=== PATIENT | female | born 1950 | race Hispanic/Latino ===

== ENCOUNTER 2016-06-08 18:05 | Inpatient (IN) | payer MEDICARE, OTHER ==
[2016-06-08 18:07] VITALS: BMI 32.8
--- NOTE | 2016-06-08 18:24 | ED PDOC ---
Arrival/HPI <Kan Ferguson - Last Filed: 06/08/16 18:34> - General Historian: Patient <Janice Salazar - Last Filed: 06/09/16 01:23> <Clayton Padilla - Last Filed: 06/09/16 03:59> - General Chief Complaint: Anxiety Time Seen by Provider: 06/08/16 18:10 - History of Present Illness Narrative History of Present Illness (Text): 06/08/16 18:17 66yo female with PMHx of anxiety, Depression who present with complaint of depression, anxiety, insomnia, and nightmares. States she has not been compliant with her psych medications. States she was referred to a psychiatrist by her PMD, not never went. Admits to auditory hallucination. Denies SI/HI, somatic complaint, any other complaint. (Janice Salazar) Past Medical History - Provider Review Nursing Documentation Reviewed: Yes - Past History Past History: No Previous - Infectious Disease Hx of Infectious Diseases: None - Reproductive Menopause: Yes - Cardiac Hx Cardiac Disorders: No - Pulmonary Hx Respiratory Disorders: No Hx Tuberculosis: No - Neurological Hx Neurological Disorder: No - HEENT Hx HEENT Disorder: No - Renal Hx Renal Disorder: No - Endocrine/Metabolic Hx Endocrine Disorders: No - Hematological/Oncological Hx Blood Disorders: No Hx Blood Transfusions: No Hx Blood Transfusion Reaction: No - Integumentary Hx Dermatological Disorder: No - Musculoskeletal/Rheumatological Hx Arthritis: Yes Hx Back Pain: Yes - Gastrointestinal Hx Gastrointestinal Disorders: No - Genitourinary/Gynecological Hx Genitourinary Disorders: No Hx Sexually Transmitted Diseases: No - Psychiatric Hx Anxiety: Yes Hx Substance Use: No - Past Surgical History Past Surgical History: No Previous - Anesthesia Hx Anesthesia: Yes Hx Anesthesia Reactions: No Hx Malignant Hyperthermia: No - Suicidal Assessment Feels Threatened In Home Enviroment: No <Janice Salazar - Last Filed: 06/09/16 01:23> Family/Social History - Physician Review Nursing Documentation Reviewed: Yes Family/Social History: Unknown Family HX Smoking Status: Never Smoked Hx Alcohol Use: No Hx Substance Use: No <Janice Salazar A - Last Filed: 06/09/16 01:23> Allergies/Home Meds <Kan Ferguson - Last Filed: 06/08/16 18:34> <DirJanice modi A - Last Filed: 06/09/16 01:23> <Clayton Padilla - Last Filed: 06/09/16 03:59> Allergies/Adverse Reactions: Allergies ciprofloxacin Allergy (Verified 01/23/16 10:44) RASH Home Medications: Home Meds Medication Instructions Recorded Confirmed ALPRAZolam [Xanax] 1 mg PO TID 06/08/16 06/08/16 Oxycodone HCl/Acetaminophen 1 mg PO TID 06/08/16 06/08/16 [Percocet 10-325 mg Tablet] PARoxetine [Paxil] 10 mg PO HS 06/08/16 06/08/16 Review of Systems - Physician Review All systems were reviewed & negative as marked: Yes - Review of Systems Constitutional: Normal Eyes: Normal ENT: Normal Respiratory: Normal Cardiovascular: Normal Gastrointestinal: Normal Genitourinary Female: Normal Musculoskeletal: Normal Skin: Normal Neurological: Normal Endocrine: Normal Hemo/Lymphatic: Normal Psychiatric: Anxiety, Depression. absent: Suicidal Ideation <Diru,Happiness A - Last Filed: 06/09/16 01:23> Physical Exam Vital Signs Reviewed: Yes Temperature: Afebrile Blood Pressure: Normal Pulse: Regular Respiratory Rate: Normal Appearance: Positive for: Well-Appearing, Non-Toxic, Comfortable Pain Distress: None Mental Status: Positive for: Alert and Oriented X 3 - Systems Exam Head: Present: Atraumatic, Normocephalic Pupils: Present: PERRL Extroacular Muscles: Present: EOMI Conjunctiva: Present: Normal Mouth: Present: Moist Mucous Membranes Neck: Present: Normal Range of Motion Respiratory/Chest: Present: Clear to Auscultation, Good Air Exchange. No: Respiratory Distress, Accessory Muscle Use Cardiovascular: Present: Regular Rate and Rhythm, Normal S1, S2. No: Murmurs Abdomen: Present: Normal Bowel Sounds. No: Tenderness, Distention, Peritoneal Signs Back: Present: Normal Inspection Upper Extremity: Present: Normal Inspection. No: Cyanosis, Edema Lower Extremity: Present: Normal Inspection. No: Edema Neurological: Present: GCS=15, CN II-XII Intact, Speech Normal Skin: Present: Warm, Dry, Normal Color. No: Rashes Psychiatric: Present: Alert, Oriented x 3, Normal Insight, Normal Concentration , Normal Affect, Anxious <Diru,Happiness A - Last Filed: 06/09/16 01:23> Medical Decision Making <KelseaalexandrCharliy - Last Filed: 06/08/16 18:34> <Janice Salazar - Last Filed: 06/09/16 01:23> - RAD Interpretation Financial Cost Analyst: ED Physician <Clayton Padilla - Last Filed: 06/09/16 03:59> ED Course and Treatment: 06/08/16 18:34 I was available for consultation during PA evaluation. The chart was reviewed by me, and I agree with disposition. The documented history was done by the physician customs inspector. The documented physical exam was done by the physician customs inspector. The documented procedures were done by the physician customs inspector. ( Kan Ferguson) 06/09/16 01:23 PT presented to ED for stated history. She became loud and anxious in ED and was medically sedated for both her safety and the ED staffs safety. she was laying down comfortably in ED. Was seen by PES screener Joycelyn, she DC with Dr. Arguelles and he requested that SARAH screen patient in ED. PT refused to sign in voluntarily. Patient is pending [facility] screen. Case will be endorse to Dr. Padilla to f/u and dispo accordingly. (rian Janice Mohan) 06/09/16 02:35 Chest X-ray shows no active disease. 06/09/16 03:33 Spoke with PES screener Natalie, who re-evaluated pt and discussed case with Dr. Mcintosh. Pt will be admitted to Behavioral Health for depression, audio hallucinations, and schizophrenia under Dr. Yung's service. (Clayton Padilla) - Lab Interpretations Lab Results: 06/08/16 18:16 06/08/16 18:16 Lab Results 06/08/16 20:00: Urine Opiates Screen Positive H, Urine Methadone Screen Negative , Ur Barbiturates Screen Negative, Ur Phencyclidine Scrn Negative, Ur Amphetamines Screen Negative, U Benzodiazepines Scrn Negative, U Oth Cocaine Metabols Negative, U Cannabinoids Screen Negative 06/08/16 20:00: Urine Color Dark yellow, Urine Appearance Sl cloudy, Urine pH 6.0, Ur Specific [place] >= 1.030, Urine Protein 100 H, Urine Glucose (UA) Negative, Urine Ketones 15 H, Urine Blood Negative, Urine Nitrate Negative, Urine Bilirubin Moderate H, Urine Urobilinogen 1.0 H, Ur Leukocyte Esterase Trace H, Urine RBC 0 - 2, Urine WBC 5 - 10, Ur Epithelial Cells 1 - 3, Urine Bacteria Mod 06/08/16 18:16: Alcohol, Quantitative < 10 06/08/16 18:16: Salicylates < 1 L, Acetaminophen < 10.0 L 06/08/16 18:16: Sodium 137, Potassium 3.1 L, Chloride 97 L, Carbon Dioxide 24, Anion Gap 19, BUN 13, Creatinine 0.7, Est GFR ( Amer) > 60, Est GFR (Non- Af Amer) > 60, Random Glucose 125 H, Calcium 9.3, Total Bilirubin 1.1, AST 19, ALT 29, Alkaline Phosphatase 94, Total Protein 8.1, Albumin 4.6, Globulin 3.6, Albumin/Globulin Ratio 1.3 06/08/16 18:16: WBC 7.7, RBC 4.32, Hgb 12.4, Hct 35.7 L, MCV 82.6, MCH 28.7, MCHC 34.7, RDW 13.7, Plt Count 358, MPV 10.8, Gran % 76.0 H, Lymph % (Auto) 16.7 L, [place] % (Auto) 7.1 H, Eos % (Auto) 0.1 L, Baso % (Auto) 0.1, Gran # 5.85 , Lymph # 1.3, [place] # 0.6, Eos # 0.0, Baso # 0.01 - RAD Interpretation Radiology Orders: 06/09/16 01:17 CHEST PORTABLE [RAD] Stat - Medication Orders Current Medication Orders: Discontinued Medications Ziprasidone (Geodon Inj) 20 mg IM STAT STA PRN Reason: Protocol Stop: 06/08/16 21:29 Last Admin: 06/08/16 21:46 Dose: 20 mg - PA / BMX RIDER / Resident Statement / has reviewed & agrees with the documentation as recorded. / has examined the patient and agrees with the treatment plan. <Clayton Padilla - Last Filed: 06/09/16 03:59> Disposition/Present on Arrival <Kan Ferguson - Last Filed: 06/08/16 18:34> - Present on Arrival History of DVT/PE: No History of Uncontrolled Diabetes: No Urinary Catheter: No History of Decub. Ulcer: No History Surgical Site Infection Following: None <Janice Salazar - Last Filed: 06/09/16 01:23> - Present on Arrival Any Indicators Present on Arrival: No History of DVT/PE: No History of Uncontrolled Diabetes: No Urinary Catheter: No History of Decub. Ulcer: No History Surgical Site Infection Following: None - Disposition Have Diagnosis and Disposition been Completed?: Yes Disposition Time: 03:38 Patient Plan: Admission <Clayton Padilla - Last Filed: 06/09/16 03:59> - Disposition Diagnosis: Schizophrenia Disposition: HOSPITALIZED Patient Problems: Current Active Problems Problem Status Onset Schizophrenia Acute Condition: STABLE Referrals: Andra Garcia MD [Primary Care Provider] - Follow up with primary
[2016-06-08 18:36] LABS: ADD MANUAL DIFF? NO
[2016-06-08 18:40] LABS: BASO # 0.01 K/mm3 (0.0-2.0); BASO % 0.1 % (0.0-3.0); EOS % 0.1 % (1.5-5.0); GRAN # 5.85 (1.4-6.5); HEMATOCRIT 35.7 % (36.0-48.0); LYMPH # 1.3 (1.2-3.4); LYMPH % 16.7 % (22.0-35.0); MEAN CELL VOLUME 82.6 fL (80.0-105.0); MEAN CORPUSCULAR HEMOGLOBIN 28.7 pg (25.0-35.0); MEAN CORPUSCULAR HGB CONC 34.7 g/dl (31.0-37.0); MEAN PLATELET VOLUME 10.8 fl (7.0-11.0); MONO # 0.6 (0.1-0.6); MONO % 7.1 % (1.0-6.0); PLATELET COUNT 358 10^3/uL (120.0-450.0); RED CELL DISTRIBUTION WIDTH 13.7 % (11.5-14.5); WHITE BLOOD COUNT 7.7 10^3/ul (4.5-11.0)
[2016-06-08 18:53] LABS: ALB/GLOB RATIO 1.3 (1.1-1.8); ALKALINE PHOSPHATASE 94 U/L (38-133); ALT/SGPT 29 U/L (7-56); AST/SGOT 19 U/L (15-39); BILIRUBIN,TOTAL 1.1 mg/dL (0.2-1.3); BLOOD UREA NITROGEN 13 mg/dL (7-21); CALCIUM 9.3 mg/dL (8.4-10.5); CARBON DIOXIDE 24 mmol/L (21-33); CHLORIDE 97 mmol/L (98-107); GFR AFRICAN-AMERICAN > 60; GLUCOSE,RANDOM 125 mg/dL (70-110); POTASSIUM 3.1 mmol/L (3.6-5.0); SODIUM 137 mmol/L (132-148); TOTAL PROTEIN 8.1 g/dL (5.8-8.3)
[2016-06-08 20:40] LABS: URINE BILIRUBIN MODERATE (NEGATIVE); URINE BLOOD NEGATIVE (NEGATIVE); URINE GLUCOSE (UA) NEGATIVE (NEGATIVE); URINE KETONE 15 mg/dL (NEGATIVE); URINE LEUKOCYTE ESTERASE TRACE Leu/uL (NEGATIVE); URINE PROTEIN 100 mg/dL (<30 mg/dL)
[2016-06-08 20:41] LABS: URINE APPEARANCE SL CLOUDY (CLEAR); URINE COLOR DARK YELLOW (YELLOW)
[2016-06-08 20:49] LABS: URINE RBC 0 - 2 /hpf (0-2)
[2016-06-08 20:50] LABS: URINE BACTERIA MOD (NEG)
[2016-06-09 05:01] VITALS: O2SAT 97
[2016-06-09] MEDS ORDERED: Alum-Mag Hydrox-Simethicone Susp (30 mL) PO PRN (05:38)
[2016-06-09] MEDS ORDERED: Magnesium Hydroxide Susp 30 ml UD PO PRN (05:38)
[2016-06-09 09:30] LABS: CHOLESTEROL 137 mg/dL (130-200); GLUCOSE,FASTING 92 mg/dL (65-110)
--- NOTE | 2016-06-09 09:43 | PCM.PSYCH ---
Initial Psychiatric Evaluation - Initial Psychiatric Evaluation Type of Admission: Voluntary Legal Status: Capacity History of Present Illness and Precipitating Events: Patient is a 65yo female with h/o depression and anxiety, one prior admission to [facility] in 01/[place], no previous psychiatric admissions who presented to the ER with depression, anxiety, insomnia, and nightmares. Patient refused to sign in voluntarily because hallucinations instructed her not to. Screening was requested and patient eventually decided to sign in voluntarily for help. Of note: patient became loud and anxious in the ER at 1:23 AM and required medical sedation for her safety and staff safety. Patient remained quite sedated at the time of my interview this morning and could not participate in a productive interview despite multiple attempts. She was able to inform this provider that she was not currently in any pain or discomfort. She remains depressed however denied having any suicidal thoughts or thoughts to harm others. PSYCHIATRIC HISTORY Most recent admission to [facility] 01/23/16-02/01/16, discharged on Paxil 30 mg HS and Seroquel 300 mg HS. Patient was admitted at that time for confusion, hallucinations and bizarre behavior (she was wandering on the streets without shoes). Apartment was filthy with feces on the floor. Current Medications: Active Medications Generic Name Dose Route Start Last Admin Trade Name Freq PRN Reason Stop Dose Admin Acetaminophen 650 mg 06/09/16 05:38 Tylenol 325mg Tab PO Q4H PRN Pain, Mild (1-3) Al Hydrox/Mg Hydrox/Simethicone 30 ml 06/09/16 05:38 Maalox Plus 30 Ml PO DAILY PRN Upset Stomach Magnesium Hydroxide 30 ml 06/09/16 05:38 Milk Of Magnesia PO DAILY PRN Constipation Past Psychiatric History - Past Psychiatric History Pertinent Medical Hx (Current Medical&Sleep Prob, Allergies): Allergies Allergy/AdvReac Type Severity Reaction Status Date / Time ciprofloxacin Allergy RASH Verified 06/09/16 05:29 Quetiapine Fumarate [Seroquel] 300 mg PO HS #14 tablet 02/01/16 ALPRAZolam [Xanax] 1 mg PO TID 06/08/16 Oxycodone HCl/Acetaminophen [Percocet 10-325 mg Tablet] 1 mg PO TID 06/08/16 PARoxetine [Paxil] 10 mg PO HS 06/08/16 DSM 5 DX - DSM 5 DSM 5 Diagnosis: r/o bipolar disorder r/o schizoaffective disorder r/o delusional disorder - Recommended/Plan of Treatment Treatment Recommendations and Plan of Treatment: * group, milieu and supportive tx * Initiate Paxil 10 mg HS for depression and anxiety * Initiate Seroquel 50 mg HS for hallucinations and disorganization * Awaiting medical f/u * Vitals reviewed and noted below: Selected Entries 06/09/16 06/09/16 06/09/16 03:10 04:10 06:19 Temperature 97.8 F Pulse Rate 78 70 78 Respiratory 16 16 18 Rate Blood Pressure 109/54 L 98/50 L 134/73 FLOOR LABS NOTED BELOW 06/09/16 09:10 Fasting Glucose 92 Triglycerides 70 Cholesterol 137 LDL Cholesterol Direct 58 HDL Cholesterol 51 EMERGENCY ROOM LABS AND STUDIES 06/08/16 20:00: Urine Opiates Screen Positive H, Urine Methadone Screen Negative , Ur Barbiturates Screen Negative, Ur Phencyclidine Scrn Negative, Ur Amphetamines Screen Negative, U Benzodiazepines Scrn Negative, U Oth Cocaine Metabols Negative, U Cannabinoids Screen Negative 06/08/16 20:00: Urine Color Dark yellow, Urine Appearance Sl cloudy, Urine pH 6.0, Ur Specific [place] >= 1.030, Urine Protein 100 H, Urine Glucose (UA) Negative, Urine Ketones 15 H, Urine Blood Negative, Urine Nitrate Negative, Urine Bilirubin Moderate H, Urine Urobilinogen 1.0 H, Ur Leukocyte Esterase Trace H, Urine RBC 0 - 2, Urine WBC 5 - 10, Ur Epithelial Cells 1 - 3, Urine Bacteria Mod 06/08/16 18:16: Alcohol, Quantitative < 10 06/08/16 18:16: Salicylates < 1 L, Acetaminophen < 10.0 L 06/08/16 18:16: Sodium 137, Potassium 3.1 L, Chloride 97 L, Carbon Dioxide 24, Anion Gap 19, BUN 13, Creatinine 0.7, Est GFR ( Amer) > 60, Est GFR (Non- Af Amer) > 60, Random Glucose 125 H, Calcium 9.3, Total Bilirubin 1.1, AST 19, ALT 29, Alkaline Phosphatase 94, Total Protein 8.1, Albumin 4.6, Globulin 3.6, Albumin/Globulin Ratio 1.3 06/08/16 18:16: WBC 7.7, RBC 4.32, Hgb 12.4, Hct 35.7 L, MCV 82.6, MCH 28.7, MCHC 34.7, RDW 13.7, Plt Count 358, MPV 10.8, Gran % 76.0 H, Lymph % (Auto) 16.7 L, [place] % (Auto) 7.1 H, Eos % (Auto) 0.1 L, Baso % (Auto) 0.1, Gran # 5.85 , Lymph # 1.3, [place] # 0.6, Eos # 0.0, Baso # 0.01 06/09/16 02:35 Chest X-ray shows no active disease.
--- NOTE | 2016-06-09 13:38 | CARD ---
APPROVED REPORT EKG Measurement Heart [id number] <Conclusion> Normal sinus rhythm Minimal voltage criteria for LVH, may be normal variant Possible Inferior infarct, age undetermined VS septal q wave corelate clinically Abnormal ECG
--- NOTE | 2016-06-09 16:48 | RAD ---
HISTORY: admission COMPARISON: 01/23/2016 FINDINGS: LUNGS: No active pulmonary disease. PLEURA: No significant pleural effusion identified, no pneumothorax apparent. CARDIOVASCULAR: Borderline cardiomegaly. OSSEOUS STRUCTURES: No significant abnormalities. VISUALIZED UPPER ABDOMEN: Normal. OTHER FINDINGS: None. IMPRESSION: No active disease.
[2016-06-09] MEDS: Oxycodone/Acetaminophen 5/325 mg Tab PO PRN (20:17)
[2016-06-10] MEDS: Oxycodone/Acetaminophen 5/325 mg Tab PO PRN ×2 (07:47→21:06)
--- NOTE | 2016-06-10 08:25 | PCM.PYCHPN ---
Psychiatric Progress Note - Psychiatric Progress Note Patient seen today, length of contact: 25 min Patient Chief Complaint: "better" Problems Identified/Issues Discussed: I reviewed recent notes and met with patient at bedside. Patient remains superficially oriented and cooperative with questioning. Grooming is a little unkempt. She denies any new concerns and reports that her mood is depressed and anxious but improving since admissions. Affect is constricted and internally preoccupied however she denies having any hallucinations. Patient did endorse having hallucinations to staff yesterday. Patient denies overt paranoia on the unit and active delusions were not elicited. Patient has been tolerating her medications at this time and denies any new discomfort or pain. Sleep was restless. She is agreeable to increase in Paxil and Seroquel. There were no behavioral issues overnight Diagnostic Results: r/o bipolar disorder r/o schizoaffective disorder r/o delusional disorder Medication Change: Yes (Increased Paxil and seroquel) Medical Record Reviewed: Yes (Notes, reports, labs, vitals) Mental Status Examination - Cognitive Function Orientation: Person, Place, Situation Memory: Impaired Attention: WNL Concentration: Poor Association: Loose - Mood Mood: Depressed, Anxious - Affect Affect: Constricted, Flat - Speech Speech: Appropriate - Formal Thought Process Formal Thought Process: Hallucinations (endorsed hallucinations to staff over the weekend, denied to this provider.) - Homicidal Ideation Homicidal Ideation: No Goal/Treatment Plan - Goal/Treatment Plan Need for Continued Stay: Remain at risks for inpatient hospitalization Progress Toward Problem(s) and Goals/Treatment Plan: * group, milieu and supportive tx * Increase Paxil to 20 mg HS for depression and anxiety, titrate as necessary * Increase Seroquel to 100 mg HS for hallucinations and disorganization, titrate as necessary * Awaiting medical f/u * Vitals reviewed and noted below: Selected Entries 06/10/16 07:27 Temperature 98.1 F Pulse Rate 60 Respiratory 17 Rate Blood Pressure 104/48 L FLOOR LABS NOTED BELOW 06/09/16 09:10 Fasting Glucose 92 Triglycerides 70 Cholesterol 137 LDL Cholesterol Direct 58 HDL Cholesterol 51 EMERGENCY ROOM LABS AND STUDIES 06/08/16 20:00: Urine Opiates Screen Positive H, Urine Methadone Screen Negative , Ur Barbiturates Screen Negative, Ur Phencyclidine Scrn Negative, Ur Amphetamines Screen Negative, U Benzodiazepines Scrn Negative, U Oth Cocaine Metabols Negative, U Cannabinoids Screen Negative 06/08/16 20:00: Urine Color Dark yellow, Urine Appearance Sl cloudy, Urine pH 6.0, Ur Specific [place] >= 1.030, Urine Protein 100 H, Urine Glucose (UA) Negative, Urine Ketones 15 H, Urine Blood Negative, Urine Nitrate Negative, Urine Bilirubin Moderate H, Urine Urobilinogen 1.0 H, Ur Leukocyte Esterase Trace H, Urine RBC 0 - 2, Urine WBC 5 - 10, Ur Epithelial Cells 1 - 3, Urine Bacteria Mod 06/08/16 18:16: Alcohol, Quantitative < 10 06/08/16 18:16: Salicylates < 1 L, Acetaminophen < 10.0 L 06/08/16 18:16: Sodium 137, Potassium 3.1 L, Chloride 97 L, Carbon Dioxide 24, Anion Gap 19, BUN 13, Creatinine 0.7, Est GFR ( Amer) > 60, Est GFR (Non- Af Amer) > 60, Random Glucose 125 H, Calcium 9.3, Total Bilirubin 1.1, AST 19, ALT 29, Alkaline Phosphatase 94, Total Protein 8.1, Albumin 4.6, Globulin 3.6, Albumin/Globulin Ratio 1.3 06/08/16 18:16: WBC 7.7, RBC 4.32, Hgb 12.4, Hct 35.7 L, MCV 82.6, MCH 28.7, MCHC 34.7, RDW 13.7, Plt Count 358, MPV 10.8, Gran % 76.0 H, Lymph % (Auto) 16.7 L, [place] % (Auto) 7.1 H, Eos % (Auto) 0.1 L, Baso % (Auto) 0.1, Gran # 5.85 , Lymph # 1.3, [place] # 0.6, Eos # 0.0, Baso # 0.01 06/09/16 02:35 Chest X-ray shows no active disease.
[2016-06-11 07:54] LABS: HEMATOCRIT 34.6 % (36.0-48.0); MEAN CELL VOLUME 86.3 fL (80.0-105.0); MEAN CORPUSCULAR HEMOGLOBIN 27.4 pg (25.0-35.0); MEAN CORPUSCULAR HGB CONC 31.8 g/dl (31.0-37.0); MEAN PLATELET VOLUME 10.9 fl (7.0-11.0); RED CELL DISTRIBUTION WIDTH 14.3 % (11.5-14.5); WHITE BLOOD COUNT 6.1 10^3/ul (4.5-11.0)
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
[2016-06-11 08:07] LABS: BLOOD UREA NITROGEN 26 mg/dL (7-21); CALCIUM 9.1 mg/dL (8.4-10.5); CARBON DIOXIDE 30 mmol/L (21-33); CHLORIDE 105 mmol/L (98-107); CHOLESTEROL 133 mg/dL (130-200); GFR AFRICAN-AMERICAN > 60; GLUCOSE,RANDOM 88 mg/dL (70-110); POTASSIUM 4.7 mmol/L (3.6-5.0); SODIUM 143 mmol/L (132-148)
--- NOTE | 2016-06-11 08:30 | CON ---
DATE: 06/10/2016 The patient is a 66-year-old female. CHIEF COMPLAINT: Depression, anxiety. HISTORY OF PRESENT ILLNESS: The patient is a 66-year-old lady, well known to me from last admission, came with anxiety, depression, Complaining of depression, anxiety, insomnia and nightmares. She states that she is compliance with her psych medications. She was referred to the psychiatrist by her PMD, never done. Admits auditory hallucinations. Denies SI and HI complaints. Admitted in psych department complaining about both knees. Percocet is given for the knees. PAST MEDICAL HISTORY: Menopause, arthritis, back pain, anxiety. FAMILY HISTORY: Father and mother noncontributory. HABITS: No smoking, no drugs, no ethanol. ALLERGIES: THE PATIENT IS ALLERGIC WITH CIPROFLOXACIN GIVES RASH. HOME MEDICATIONS: Xanax, oxycodone, Paxil. REVIEW OF SYSTEMS: The patient seen and examined on the bedside in ER, looks comfortable. No nausea, vomiting, diarrhea. No hematuria, no hematochezia. No swelling of the legs. No chest pain, no palpitation. PHYSICAL EXAMINATION: HEART: S1, S2 positive. ABDOMEN: Soft. Bowel sounds positive. No organomegaly. EXTREMITIES: No edema, no cyanosis. NEUROLOGIC: The patient is awake, alert, moving all 4 extremities. No focal deficit. LABORATORIES: White blood cells 7.7, hemoglobin 12.7, hematocrit 35.7, platelets 358. Sodium noted , potassium 3.1, BUN noted , creatinine 0.7, glucose of 125. ASSESSMENT AND PLAN: A 66-year-old female with thrombocytopenia, hyperglycemia . Gastrointestinal and deep venous thrombosis prophylaxis. Psych is on the case. Repeat labs. Will follow up. Sherin Morton MD cc: [id number] TT: 06/10/2016 09:31:59 Confirmation # [id number] Dictation # [id number] [id number]
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
[2016-06-11] MEDS: Oxycodone/Acetaminophen 5/325 mg Tab PO PRN (19:13)
--- NOTE | 2016-06-12 07:25 | PN ---
DATE: 06/11/2016 SUBJECTIVE: The patient is a 66-year-old female with multiple medical problems. The patient was seen and examined on the bedside, sleepy, arousable, moving all 4 extremities. No focal deficit. No fever, no chills, no nausea, vomiting, or diarrhea. No headache, no dizziness. PHYSICAL EXAMINATION: VITAL SIGNS: Temperature 97.8, pulse 61, blood pressure 140/76, respiratory rate 20. HEENT: Head normocephalic, atraumatic. Eyes: PERRLA. Extraocular movements intact. Conjunctivae pink. Eyelids unremarkable. Nose patent. Mucous membranes moist. NECK: Supple. No carotid bruit, JVD or thyromegaly. CHEST: Bilaterally symmetrical. HEART: S1, S2 positive. LUNGS: Clear to auscultation. ABDOMEN: Soft. Bowel sounds positive. No organomegaly. EXTREMITIES: No edema, no cyanosis. NEUROLOGIC: The patient is sleepy, moving all 4 extremities. No focal deficit. MEDICATIONS: Maalox, milk of magnesia, Percocet, Seroquel, Tylenol. LABORATORY DATA: White blood cells 6.1, hemoglobin 11.1, hematocrit 34.6, platelets 263. Sodium 142, potassium 4.7, BUN 26. ASSESSMENT AND PLAN: The patient is a 66-year-old female with history of hypokalemia, improved, increased BUN, hyperglycemia, rule out diabetes mellitus , anemia, proteinuria, acute renal failure, urinary tract infection. Urine opiates positive. Continue present treatment. Gastrointestinal and deep venous thrombosis prophylaxis. History of degenerative joint disease, seen by Dr. Leona Yung, psychiatrist, needs some change in the medicine. Advised to quit smoking. Needs some physical therapy. We will try to do as outpatient. We will follow up. Sherin Morton MD cc: [id number] TT: 06/12/2016 07:24:45 Confirmation # [id number] Dictation # [id number] marcin [email or web address]
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
[2016-06-12] MEDS: Oxycodone/Acetaminophen 5/325 mg Tab PO PRN (18:07)
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
--- NOTE | 2016-06-14 06:57 | PN ---
DATE: 06/13/2016 SUBJECTIVE: The patient is seen and examined on the bedside, looks comfortable. No nausea, vomiting, or diarrhea. No fever, no chills. No headache, no dizziness. Complaining about joint pains, body aches, fatigue, tired. No nausea or vomiting. No dyspnea. PHYSICAL EXAMINATION: VITAL SIGNS: Temperature 98.5, pulse 59, blood pressure 157/82, respiratory rate 18. HEENT: Head normocephalic, atraumatic. Eyes: PERRLA. Extraocular muscles intact. Conjunctivae clear. Nose patent. Mucous membranes moist. NECK: Supple. No carotid bruits. No JVD or thyromegaly. CHEST: Bilaterally symmetrical. HEART: S1, S2 positive. LUNGS: Clear to auscultation. ABDOMEN: Soft. Bowel sounds present. No organomegaly. EXTREMITIES: No edema, no cyanosis. NEUROLOGIC: The patient is awake, alert, moving all 4 extremities. No focal deficit. MEDICATIONS: Maalox, milk of magnesia, Paxil, Seroquel, Senokot, Tylenol. LABORATORY DATA: White blood cells 6.1, hemoglobin 11.0, hematocrit 34.6, and platelets 263. ASSESSMENT AND PLAN: The patient is a 66-year-old lady with anemia, hyperglycemia, opioid screen positive, proteinuria, ketonuria, urinary tract infection, seen by Dr. Leona Yung and according to the psychiatrist, the patient said that her roommte was whispering about me. She talks bad staff about me. I do not like her. I stayed in seclusion room. I was not feeling safe." History of degenerative joint disease, depression, anxiety, has previous psychiatric admission in 2016, history of chronic back pain, knee pain , brought to [facility] by EMS due to bizarre behavior. The patient was shouting in her apartment, was confused, disorganized, claimed that she was not able to sleep and the patient was complaining that she was hearing voices of devil, was scared. That is why she was screaming in her apartment. The patient noncompliant with medication. Education done. Now patient is denying hearing voices, seeing things, but the patient presented to be psychotic, disorganized and paranoid. Rule out schizoaffective disorder, bipolar type, rule out medication-induced psychosis, rule out delirium. Psychiatrist increased the Seroquel. Gastrointestinal and deep venous thrombosis prophylaxis. Repeat labs. Continue milk of magnesia, Paxil, Seroquel, Sonata, Tylenol, p.r.n. We will follow up. Sherin Morton MD cc: [id number] TT: 06/14/2016 06:56:50 Confirmation # [id number] Dictation # [id number] tn MTDD
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
--- NOTE | 2016-06-15 07:37 | PN ---
DATE: 06/14/2016 The patient is a 66-year-old female. The patient is seen and examined on the bedside, looks comfortable. No nausea, vomiting, diarrhea. No hematuria, no hematochezia. No swelling of the legs. No chest pain, no palpitation. Complaining about knee pains. It looks like suspicious for djd . Otherwise, no fever, no chills. PHYSICAL EXAMINATION: VITAL SIGNS: Temperature 97.9, pulse 80 , blood pressure 124/70, respiratory rate 18. HEENT: Head normocephalic, atraumatic. Eyes: PERRLA. Extraocular muscles intact. Conjunctivae pink. Eyelids unremarkable. Nose patent. Mucous membranes moist. NECK: Supple. No carotid bruit, no JVD, no thyromegaly. CHEST: Bilaterally symmetrical. HEART: S1, S2 positive. LUNGS: Clear to auscultation. ABDOMEN: Soft. Bowel sounds positive. No organomegaly. EXTREMITIES: No edema, no cyanosis. NEUROLOGIC: The patient is awake, alert, moving all 4 extremities. No focal deficit. MEDICATIONS: Maalox, milk of magnesia, Paxil, Seroquel, Sonata, Tylenol. LABORATORIES: We do not have recent labs today, but I reviewed old labs. ASSESSMENT AND PLAN: The patient is a 66-year-old lady with anemia, history of hypokalemia, improved, proteinuria, ketonuria, opiates positive in toxicology, history of degenerative joint disease, arthritis, obesity. Dr. Delgadillo is on the case for psych problems. gastroesophageal reflux disease, dyspepsia. Gastrointestinal and deep venous thrombosis prophylaxis. Repeat labs. Will follow up. Sherin Morton MD cc: [id number] TT: 06/15/2016 07:37:16 Confirmation # [id number] Dictation # [id number] en MTDD
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
[2016-06-16 06:40] VITALS: TEMP 97.9
--- NOTE | 2016-06-16 07:15 | PN ---
DATE: 06/15/2016 SUBJECTIVE: The patient is a 66-year-old female. The patient was seen and examined at the bedside on 06/15/2016. Just complaining about pain in the knees. No nausea, vomiting, or diarrhea. No hematuria or hematochezia. No headache, no dizziness. No fever, no chills. No swelling of the leg. PHYSICAL EXAMINATION: VITAL SIGNS: Temperature 97.8, pulse 72, blood pressure 111/58, respiratory rate 19. HEENT: Head: Normocephalic, atraumatic. Eyes: PERRLA. Extraocular movements intact. Conjunctivae are clear. Nose patent. Mucous membranes moist. NECK: Supple. No carotid bruit. No JVD or thyromegaly. CHEST: Bilaterally symmetrical. HEART: S1, S2 positive. LUNGS: Clear to auscultation. ABDOMEN: Soft. Bowel sounds positive. No organomegaly. EXTREMITIES: No edema, no cyanosis. NEUROLOGIC: The patient is awake, alert, moving all extremities. No focal deficit. MEDICATIONS: Maalox, milk of magnesia, Paxil, Seroquel, Sonata, Tylenol. LABORATORY DATA: White blood cells 6.1, hemoglobin 11.0, hematocrit 34.6, and platelets 263. Sodium 143, potassium 4.7, BUN 26, creatinine 0.8. Hemoglobin A1c 5.7. TSH 0.97. ASSESSMENT AND PLAN: The patient is a 66-year-old lady with history of hypokalemia improved, anemia, degenerative joint disease, obesity, gastroesophageal reflux disease, dyspepsia. The patient has history of depression, anxiety, had multiple psychiatric admissions. The patient is compliant with medication and visible in the unit, socializing with peers. She has schizoaffective disorder, medication induced psychosis, delirium. Continue Seroquel. Gastrointestinal and deep venous thrombosis prophylaxis. Repeat labs. We will follow up. Sherin Morton MD cc: [id number] TT: 06/16/2016 07:14:54 Confirmation # [id number] Dictation # [id number] nn MTDDavey
--- NOTE | 2016-06-16 08:37 | PCM.PYCHPN ---
Psychiatric Progress Note - Psychiatric Progress Note Patient seen today, length of contact: 25 minutes Patient Chief Complaint: "better" Problems Identified/Issues Discussed: I reviewed recent notes and met with patient at bedside. She is known to me from prior interviews during this admission. Patient appears more solidly oriented than last week. She is cooperative with questioning and grooming is improved. Patient denies any new concerns and reports that her mood and sleep are much improved since admission. Affect is brighter and more reactive than last weekend. She denies hallucinations and paranoid delusions were not elicited. Patient has been tolerating her medications at this time and denies any new discomfort or pain. There were no behavioral issues overnight Diagnostic Results: Rule out schizoaffective disorder, bipolar type Rule out medication induced psychosis Rule out delirium Medication Change: No ( ) Medical Record Reviewed: Yes (Notes, reports, labs, vitals) Mental Status Examination - Cognitive Function Orientation: Person, Place, Situation Memory: Impaired Attention: WNL Concentration: Poor (some improvement) Association: WNL Fund of Knowledge: WNL - Mood Mood: Depressed (better), Anxious - Affect Affect: Constricted (more reactive and related) - Speech Speech: Appropriate - Formal Thought Process Formal Thought Process: Paranoia (improved) - Suicidal Ideation Suicidal Ideation: No - Homicidal Ideation Homicidal Ideation: No Goal/Treatment Plan - Goal/Treatment Plan Need for Continued Stay: Remain at risks for inpatient hospitalization, Severe depression anxiety, Discharge may exacerbated symptoms, Failed transitioning, Severe functional impairment Progress Toward Problem(s) and Goals/Treatment Plan: * group, milieu and supportive tx * Appreciate f/u by Dr. Morton on 06/16/16~repeat labs, to f/u * No new weekend labs * Vitals reviewed and noted below: Selected Entries 06/15/16 06/15/16 06:30 16:14 Temperature 97.8 F Pulse Rate 73 72 Respiratory 19 Rate Blood Pressure 105/53 L 111/68 Estimated Date of D/C: 06/17/16 (we'll monitor closely)
--- NOTE | 2016-06-16 19:51 | PN ---
DATE: 06/16/2016 SUBJECTIVE: The patient is seen and examined on the bedside, looks comfortable. No nausea, vomiting, or diarrhea. No hematuria or hematochezia. No swelling of the leg. No chest pain, no palpitation. Complaining about knee pain, sometimes back pain, sometimes gets his stomach. PHYSICAL EXAMINATION: VITAL SIGNS: Temperature 97.9, pulse 71, blood pressure 120/80, respiratory rate 18. HEENT: Head normocephalic, atraumatic. Eyes: PERRLA. Extraocular muscles intact. Conjunctivae are clear. Nose patent. Mucous membranes moist. NECK: Supple. No carotid bruit, JVD or thyromegaly. CHEST: Bilaterally symmetrical. HEART: S1, S2 positive. LUNGS: Clear to auscultation. ABDOMEN: Soft. Bowel sounds present. No organomegaly. EXTREMITIES: No edema, no cyanosis. NEUROLOGIC: The patient is awake, alert, moving all 4 extremities. No focal deficit. MEDICATIONS: Maalox, milk of magnesia, Paxil, Seroquel, Sonata. LABORATORY DATA: White blood cells 6.1, hemoglobin 11.0, hematocrit 34.6, platelets 267. Sodium 143, potassium 4.7, BUN noted , creatinine 0.8, glucose 92. TSH 0.97. ASSESSMENT AND PLAN: The patient is a 66-year-old lady with anemia, gastroesophageal reflux disease, dyspepsia, obesity, degenerative joint disease , schizoaffective disorder, bipolar type, medication-induced psychosis, delirium. Psychiatrist is on the case. Continue psych medications. Gastrointestinal and deep venous thrombosis prophylaxis. Repeat labs. We will follow up. Sherin Morton MD cc: [id number] TT: 06/16/2016 19:50:41 Confirmation # [id number] Dictation # [id number] dang STEWART
[2016-06-17 07:39] VITALS: BP 131/82; PULSE 67; RESP 20
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
== END 2016-06-17 15:38 | disposition home or self-care (01) | DRG 885 ==
LOC: ED 18:05 → ERH 06-09 03:38 → PSYC 06-09 05:11
PROVIDERS: ADMIT Psychiatry & Neurology Psychiatry; ATTEND Psychiatry & Neurology Psychiatry
DX: F25.0 Schizoaffective disorder, bipolar type (principal); N39.0 Urinary tract infection, site not specified; F41.8 Other specified anxiety disorders; E66.9 Obesity, unspecified; E87.6 Hypokalemia; R73.9 Hyperglycemia, unspecified; E78.00 Pure hypercholesterolemia, unspecified; D64.9 Anemia, unspecified; M19.90 Unspecified osteoarthritis, unspecified site; K21.9 Gastro-esophageal reflux disease without esophagitis; F19.959 Other psychoactive substance use, unspecified with psychoactive substance-induced psychotic disorder, unspecified; R41.0 Disorientation, unspecified; Z91.14 Patient's other noncompliance with medication regimen; Z68.32 Body mass index [BMI] 32.0-32.9, adult; Z91.19 Patient's noncompliance with other medical treatment and regimen

== ENCOUNTER 2016-07-14 22:41 | Inpatient (IN) | payer MEDICARE, OTHER ==
[2016-07-14 22:42] VITALS: BMI 32.8
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
[2016-07-14 23:36] LABS: ADD MANUAL DIFF? NO
[2016-07-14 23:42] LABS: BASO # 0.03 K/mm3 (0.0-2.0); BASO % 0.4 % (0.0-3.0); EOS # 0.1 (0.0-0.7); EOS % 1.1 % (1.5-5.0); GRAN # 5.95 (1.4-6.5); GRAN % 72.1 % (50.0-68.0); HEMATOCRIT 32.6 % (36.0-48.0); LYMPH # 1.7 (1.2-3.4); LYMPH % 20.8 % (22.0-35.0); MEAN CELL VOLUME 84.7 fL (80.0-105.0); MEAN CORPUSCULAR HEMOGLOBIN 27.8 pg (25.0-35.0); MEAN CORPUSCULAR HGB CONC 32.8 g/dl (31.0-37.0); MEAN PLATELET VOLUME 10.3 fl (7.0-11.0); MONO # 0.5 (0.1-0.6); MONO % 5.6 % (1.0-6.0); PLATELET COUNT 329 10^3/uL (120.0-450.0); RED CELL DISTRIBUTION WIDTH 15.3 % (11.5-14.5); WHITE BLOOD COUNT 8.2 10^3/ul (4.5-11.0)
[2016-07-14 23:48] LABS: ALB/GLOB RATIO 1.3 (1.1-1.8); ALKALINE PHOSPHATASE 142 U/L (38-133); ALT/SGPT 44 U/L (7-56); AST/SGOT 21 U/L (15-39); BILIRUBIN,TOTAL 0.8 mg/dL (0.2-1.3); BLOOD UREA NITROGEN 24 mg/dL (7-21); CALCIUM 9.1 mg/dL (8.4-10.5); CARBON DIOXIDE 27 mmol/L (21-33); CHLORIDE 102 mmol/L (98-107); GFR AFRICAN-AMERICAN > 60; GLUCOSE,RANDOM 92 mg/dL (70-110); POTASSIUM 4.1 mmol/L (3.6-5.0); SODIUM 138 mmol/L (132-148); TOTAL PROTEIN 7.7 g/dL (5.8-8.3)
[2016-07-15 00:31] LABS: PH,URINE 5.5 (4.7-8.0); URINE BILIRUBIN NEGATIVE (NEGATIVE); URINE BLOOD TRACE-INTACT (NEGATIVE); URINE GLUCOSE (UA) NEGATIVE (NEGATIVE); URINE KETONE NEGATIVE (NEGATIVE); URINE LEUKOCYTE ESTERASE MODERATE Leu/uL (NEGATIVE); URINE PROTEIN 30 mg/dL (<30 mg/dL); URINE UROBILINOGEN 0.2 E.U./dL (<1 E.U./dL)
[2016-07-15 01:02] LABS: URINE APPEARANCE SL CLOUDY (CLEAR); URINE COLOR YELLOW (YELLOW)
[2016-07-15 01:14] LABS: URINE WBC 20 - 25 /hpf (0-6)
[2016-07-15 01:15] LABS: URINE BACTERIA MANY (NEG)
[2016-07-15 01:42] VITALS: O2SAT 98
--- NOTE | 2016-07-15 08:18 | RAD ---
PROCEDURE: CHEST RADIOGRAPH, 1 VIEW HISTORY: medical alearance COMPARISON: None available. FINDINGS: LUNGS: Clear. PLEURA: No pneumothorax or pleural fluid seen. CARDIOVASCULAR: Normal. OSSEOUS STRUCTURES: No significant abnormalities. VISUALIZED UPPER ABDOMEN: Normal. OTHER FINDINGS: None. IMPRESSION: No active disease.
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
--- NOTE | 2016-07-15 18:52 | CARD ---
APPROVED REPORT EKG Measurement Heart [id number] <Conclusion> Normal sinus rhythm Possible Left atrial enlargement Left ventricular hypertrophy Inferior infarct, age undetermined Abnormal ECG
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
[2016-07-18 07:21] VITALS: RESP 20
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
[2016-07-18] MEDS: Tmp-Smz 800 mg-160 mg DS Tab PO SCH ×2 (08:51→16:07)
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
[2016-07-19] MEDS: Tmp-Smz 800 mg-160 mg DS Tab PO SCH ×2 (09:14→17:24)
[2016-07-19] MEDS: Lidocaine 5% Patch TD SCH (09:15)
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
[2016-07-20 07:35] VITALS: TEMP 98
[2016-07-20] MEDS: Tmp-Smz 800 mg-160 mg DS Tab PO SCH ×2 (09:09→16:28)
[2016-07-20] MEDS: Lidocaine 5% Patch TD SCH (09:10)
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
[2016-07-20 16:22] VITALS: BP 133/88; PULSE 82
--- NOTE | 2016-07-22 07:57 | PN ---
DATE: 07/20/2016 The patient is a 66-year-old female. The patient was seen and examined on 2016, looks comfortable, happy to go home. No nausea, vomiting, diarrhea. No hematuria, no hematochezia. No swelling of the legs. No chest pain, no palpitations. No fever, no chills. The patient educated to take medicines religiously and come back for followup in my office. PHYSICAL EXAMINATION: VITAL SIGNS: Temperature 98.0, pulse 82, blood pressure 132/68, respiratory rate 20. HEENT: Head normocephalic, atraumatic. Eyes: PERRLA. Extraocular muscles intact. Conjunctivae clear. Nose patent. Mucous membranes moist. NECK: Supple. No carotid bruit, no JVD, no thyromegaly. CHEST: Bilaterally symmetrical. HEART: S1, S2 positive. LUNGS: Clear to auscultation. ABDOMEN: Soft. Bowel sounds positive. No organomegaly. EXTREMITIES: No edema, no cyanosis. NEUROLOGIC: The patient is awake, alert, moving all 4 extremities. No focal deficit. LABORATORIES: White blood cells 8.2, hemoglobin 10.7, hematocrit noted , platelets 329. BUN 24, creatinine noted ASSESSMENT AND PLAN: The patient is a 66-year-old lady with anemia, increased BUN, abnormal liver function test, proteinuria, hematuria, urinary tract infection. The patient is under care of Dr. Leona Yung. Urine toxicology shows positive opiates and benzodiazepines , Gastrointestinal and deep venous thrombosis prophylaxis. Repeat labs. Will follow up. History of hypertension, degenerative joint disease, constipation. Sherin Morton MD cc: [id number] TT: 07/22/2016 07:56:37 Confirmation # [id number] Dictation # [id number] en MTDD
== END 2016-07-20 18:38 | disposition home or self-care (01) | DRG 885 ==
LOC: ED 22:41 → ERH 07-15 03:27 → PSYC 07-15 04:04
PROVIDERS: ADMIT Psychiatry & Neurology Psychiatry; ATTEND Psychiatry & Neurology Psychiatry
DX: F25.9 Schizoaffective disorder, unspecified (principal); F05 Delirium due to known physiological condition; N39.0 Urinary tract infection, site not specified; I10 Essential (primary) hypertension; E66.9 Obesity, unspecified; D64.9 Anemia, unspecified; M19.90 Unspecified osteoarthritis, unspecified site; F41.0 Panic disorder [episodic paroxysmal anxiety]; G47.00 Insomnia, unspecified; G89.21 Chronic pain due to trauma; V89.2XXS Person injured in unspecified motor-vehicle accident, traffic, sequela; Z79.899 Other long term (current) drug therapy; Z91.14 Patient's other noncompliance with medication regimen; Z56.0 Unemployment, unspecified; Z88.1 Allergy status to other antibiotic agents; R31.9 Hematuria, unspecified; R80.9 Proteinuria, unspecified; F11.90 Opioid use, unspecified, uncomplicated; F13.90 Sedative, hypnotic, or anxiolytic use, unspecified, uncomplicated; F22 Delusional disorders; Z68.34 Body mass index [BMI] 34.0-34.9, adult; K59.00 Constipation, unspecified

== ENCOUNTER 2017-10-02 22:21 | Emergency (ER) | payer MEDICARE ==
[2017-10-02 22:39] VITALS: BMI 30.9
[2017-10-02 22:53] VITALS: BP 124/97; PULSE 83; RESP 18; TEMP 98.4
--- NOTE | 2017-10-02 23:39 | ED PDOC ---
Arrival/HPI - General Chief Complaint: Med Refill Time Seen by Provider: 10/02/17 22:41 Historian: Patient - History of Present Illness Narrative History of Present Illness (Text): 10/02/17 23:34 Ioana Bucio is a 67 year old female, whose past medical history includes arthritis, depression, anxiety, and schizoaffective disorder, who presents to the Emergency department complaining of insomnia. Patient states she ran out her Xanax and Ambien and has been unable to sleep for the past 2 weeks. Patient reports was unable to refill her prescriptions as she missed her psychiatrist appointment last week. Patient denies any auditory/visual hallucinations, suicidal ideation, homicidal ideation, fever, chills, chest pain, shortness of breath, nausea, vomiting, diarrhea, urinary symptoms, back pain, neck pain, headache, dizziness, or any other complaints. Symptom Onset: Gradual Symptom Course: Unchanged Activities at Onset: Light Context: Home Past Medical History - Provider Review Nursing Documentation Reviewed: Yes - Past History Past History: No Previous - Infectious Disease Hx of Infectious Diseases: None - Cardiac Hx Cardiac Disorders: No - Pulmonary Hx Respiratory Disorders: No Hx Tuberculosis: No - Neurological Hx Neurological Disorder: No - HEENT Hx HEENT Disorder: No - Renal Hx Renal Disorder: No - Endocrine/Metabolic Hx Endocrine Disorders: No - Hematological/Oncological Hx Blood Disorders: No Hx Blood Transfusions: No Hx Blood Transfusion Reaction: No - Integumentary Hx Dermatological Disorder: No - Musculoskeletal/Rheumatological Hx Arthritis: Yes Hx Back Pain: Yes Other/Comment: knee sx - Gastrointestinal Hx Gastrointestinal Disorders: No - Genitourinary/Gynecological Hx Genitourinary Disorders: No Hx Sexually Transmitted Diseases: No - Psychiatric Hx Anxiety: Yes Hx Schizophrenia: Yes Hx Substance Use: No Other/Comment: insomnia - Past Surgical History Past Surgical History: No Previous - Anesthesia Hx Anesthesia: Yes Hx Anesthesia Reactions: No Hx Malignant Hyperthermia: No - Suicidal Assessment Feels Threatened In Home Enviroment: No Family/Social History - Physician Review Nursing Documentation Reviewed: Yes Family/Social History: Unknown Family HX Smoking Status: Never Smoked Hx Alcohol Use: No Hx Substance Use: No Allergies/Home Meds Allergies/Adverse Reactions: Allergies ciprofloxacin Allergy (Verified 06/09/16 05:29) RASH Home Medications: Home Meds Medication Instructions Recorded Confirmed ALPRAZolam [Xanax] 1 tab PO TID 10/02/17 10/02/17 Oxycodone HCl/Acetaminophen 1 tab PO PRN PRN 10/02/17 10/02/17 [Endocet 10-325 mg Tablet] Zolpidem [Ambien] 1 tab PO HS 10/02/17 10/02/17 Review of Systems - Physician Review All systems were reviewed & negative as marked: Yes - Review of Systems Constitutional: Normal. absent: Fevers Eyes: Normal ENT: Normal Respiratory: Normal. absent: SOB, Cough Cardiovascular: Normal. absent: Chest Pain Gastrointestinal: Normal. absent: Abdominal Pain, Diarrhea, Nausea, Vomiting Genitourinary Female: Normal. absent: Dysuria, Frequency, Urine Output Changes Musculoskeletal: Normal. absent: Back Pain, Neck Pain Skin: Normal. absent: Rash Neurological: Normal. absent: Headache, Dizziness Endocrine: Normal Hemo/Lymphatic: Normal Psychiatric: Other (+insomnia) Physical Exam Vital Signs Reviewed: Yes Vital Signs Temp Pulse Resp BP Pulse Ox 10/02/17 22:52 98.4 F 83 18 124/97 H 98 Temperature: Afebrile Blood Pressure: Normal Pulse: Regular Appearance: Positive for: Well-Appearing, Unkept Pain Distress: None Mental Status: Positive for: Alert and Oriented X 3 - Systems Exam Head: Present: Atraumatic, Normocephalic Pupils: Present: PERRL Extroacular Muscles: Present: EOMI Conjunctiva: Present: Normal Mouth: Present: Moist Mucous Membranes Neck: Present: Normal Range of Motion. No: Meningeal Signs, MIDLINE TENDERNESS , Paraspinal Tenderness Respiratory/Chest: Present: Clear to Auscultation, Good Air Exchange. No: Respiratory Distress, Accessory Muscle Use Cardiovascular: Present: Regular Rate and Rhythm, Normal S1, S2. No: Murmurs Abdomen: No: Tenderness, Distention, Peritoneal Signs Upper Extremity: Present: Normal Inspection. No: Cyanosis, Edema Lower Extremity: Present: Normal Inspection. No: Edema Neurological: Present: GCS=15, CN II-XII Intact, Speech Normal Skin: Present: Warm, Dry, Normal Color. No: Rashes Psychiatric: Present: Alert, Oriented x 3, Normal Insight, Normal Concentration Medical Decision Making ED Course and Treatment: 10/02/17 23:35 Impression: 67 year old female complaining of insomnia x 2 weeks. Plan: -- Ambien -- Reassess and disposition Prior Visits: Notes and results from previous visits were reviewed. On 08/10/2016, pt was seen in the Emergency department complaining of depression and insomnia. Pt was admitted to [facility] for further evaluation. Progress Notes: - Scribe Statement The provider has reviewed the documentation as recorded by the Scribe Liliane Lowe All medical record entries made by the Scribe were at my direction and personally dictated by me. I have reviewed the chart and agree that the record accurately reflects my personal performance of the history, physical exam, medical decision making, and the department course for this patient. I have also personally directed, reviewed, and agree with the discharge instructions and disposition. Disposition/Present on Arrival - Present on Arrival Any Indicators Present on Arrival: No History of DVT/PE: No History of Uncontrolled Diabetes: No Urinary Catheter: No History of Decub. Ulcer: No History Surgical Site Infection Following: None - Disposition Have Diagnosis and Disposition been Completed?: Yes Diagnosis: Schizoaffective disorder Disposition: HOME/ ROUTINE Disposition Time: 23:59 Patient Plan: Discharge Patient Problems: Current Active Problems Problem Status Onset Schizoaffective disorder Chronic Condition: GOOD Discharge Instructions (ExitCare): Schizoaffective Disorder (DC) Additional Instructions: Must follow up with your doctor tommorow regarding your refill of medications Forms: [facility] (Sri Lankan)
[2017-10-03 00:11] VITALS: O2SAT 99
== END 2017-10-03 00:27 | disposition home or self-care (01) ==
LOC: ED 22:21
DX: F25.9 Schizoaffective disorder, unspecified (principal)

== ENCOUNTER 2017-10-24 12:13 | Emergency (ER) | payer MEDICARE ==
[2017-10-24 12:14] VITALS: BMI 30.9
--- NOTE | 2017-10-24 12:26 | ED PDOC ---
Arrival/HPI - General Chief Complaint: Psychiatric Evaluation Time Seen by Provider: 10/24/17 12:16 Historian: Patient, EMS - History of Present Illness Time/Duration: Other (several weeks) Symptom Onset: Gradual Symptom Course: Worsening Severity Level: Moderate Associated Symptoms (Text): 10/24/17 12:26 Patient complains of a several week to several month history of depression. She reports that she ran out of her Seroquel Xanax and other medications approximately 2 months ago. She states that she is hearing voices that whisperer to her that they love her and then that they hate her. She is asking for help. Past Medical History - Past History Past History: No Previous - Infectious Disease Hx of Infectious Diseases: None - Reproductive Menopause: Yes - Cardiac Hx Cardiac Disorders: No - Pulmonary Hx Respiratory Disorders: No Hx Tuberculosis: No - Neurological Hx Neurological Disorder: No - HEENT Hx HEENT Disorder: No - Renal Hx Renal Disorder: No - Endocrine/Metabolic Hx Endocrine Disorders: No - Hematological/Oncological Hx Blood Disorders: No Hx Blood Transfusions: No Hx Blood Transfusion Reaction: No - Integumentary Hx Dermatological Disorder: No - Musculoskeletal/Rheumatological Hx Arthritis: Yes Hx Back Pain: Yes Other/Comment: knee sx - Gastrointestinal Hx Gastrointestinal Disorders: No - Genitourinary/Gynecological Hx Genitourinary Disorders: No Hx Sexually Transmitted Diseases: No - Psychiatric Hx Anxiety: Yes Hx Depression: Yes Hx Schizophrenia: Yes Hx Substance Use: No Other/Comment: insomnia - Past Surgical History Past Surgical History: No Previous - Anesthesia Hx Anesthesia: Yes Hx Anesthesia Reactions: No Hx Malignant Hyperthermia: No - Suicidal Assessment Feels Threatened In Home Enviroment: No Family/Social History - Physician Review Nursing Documentation Reviewed: Yes Family/Social History: Unknown Family HX Smoking Status: Never Smoked Hx Alcohol Use: No Hx Substance Use: No Allergies/Home Meds Allergies/Adverse Reactions: Allergies ciprofloxacin Allergy (Verified 06/09/16 05:29) RASH Home Medications: Home Meds Medication Instructions Recorded Confirmed QUEtiapine [SEROquel] 1 tab PO DAILY 10/24/17 10/24/17 Review of Systems - Physician Review All systems were reviewed & negative as marked: Yes - Review of Systems Constitutional: Fatigue Respiratory: absent: SOB, Cough Cardiovascular: absent: Chest Pain, Palpitations Gastrointestinal: absent: Abdominal Pain, Diarrhea, Vomiting Genitourinary Female: absent: Dysuria, Frequency, Hematuria Neurological: absent: Headache, Dizziness Physical Exam Vital Signs Temp Pulse Resp BP Pulse Ox 10/24/17 15:03 78 18 118/78 98 10/24/17 13:53 98 F 77 19 123/52 L 98 10/24/17 12:30 98.9 F 87 18 108/76 97 10/24/17 12:20 98 F 88 19 95 Temperature: Afebrile Blood Pressure: Normal Pulse: Regular Respiratory Rate: Normal Appearance: Positive for: Well-Appearing, Non-Toxic, Comfortable, Unkept (foul- smelling), Other Pain Distress: None Mental Status: Positive for: Alert and Oriented X 3 - Systems Exam Head: Present: Atraumatic, Normocephalic Pupils: Present: PERRL Extroacular Muscles: Present: EOMI Conjunctiva: Present: Normal Mouth: Present: Moist Mucous Membranes Pharnyx: No: ERYTHEMA, EXUDATE, TONSILS ENLARGED Neck: Present: Normal Range of Motion Respiratory/Chest: Present: Clear to Auscultation, Good Air Exchange, Decreased Breath Sounds. No: Respiratory Distress, Accessory Muscle Use Cardiovascular: Present: Regular Rate and Rhythm, Normal S1, S2. No: Murmurs Abdomen: No: Tenderness, Distention, Peritoneal Signs Upper Extremity: Present: Normal Inspection. No: Cyanosis, Edema Lower Extremity: Present: Normal Inspection. No: Edema Neurological: Present: GCS=15, CN II-XII Intact, Speech Normal, Motor Func Grossly Intact Skin: Present: Warm, Dry, Normal Color. No: Rashes Psychiatric: Present: Alert, Oriented x 3, Normal Insight, Normal Concentration , Depressed Mood, Hallucinations. No: Normal Affect, Normal Mood, Anxious, Agitated, Intoxicated, Lethargic Medical Decision Making ED Course and Treatment: 10/24/17 14:16 Impression: 67 year old female presents complaining of depression and auditory hallucinations. Plan: -- EKG -- Labs -- Chest X-ray -- Potassium Chloride -- Urine Culture -- Urinalysis w/ Micro -- Reassess and disposition Prior Visits: Notes and results from previous visits were reviewed. Progress Notes: PROCEDURE: Chest X-ray Dictator : Alfonso Mann MD Report Date : 10/24/2017 12:53:22 IMPRESSION: No active disease. 10/24/17 14:36 Seen and evaluated by crisis. , is requesting that the patient be given Seroquel 50 mg by mouth now and he will follow-up in the office this afternoon. 10/24/17 15:09 EKG shows normal sinus rhythm rate approximately [address] or T-wave changes - Lab Interpretations Lab Results: 10/24/17 12:25 10/24/17 12:25 Lab Results 10/24/17 12:25: Alcohol, Quantitative < 10 10/24/17 12:25: Salicylates < 1 L, Acetaminophen < 10.0 L 10/24/17 12:25: Sodium 141, Potassium 3.3 L, Chloride 106, Carbon Dioxide 24, Anion Gap 14, BUN 9, Creatinine 0.7, Est GFR ( Amer) > 60, Est GFR (Non- Af Amer) > 60, Random Glucose 134 H, Calcium 8.7, Magnesium 1.8, Total Bilirubin 0.8, AST 19, ALT 18, Alkaline Phosphatase 93, Total Creatine Kinase 61 , Total Protein 7.1, Albumin 4.0, Globulin 3.1, Albumin/Globulin Ratio 1.3 10/24/17 12:25: WBC 9.1, RBC 4.28, Hgb 11.5 L, Hct 35.7 L, MCV 83.4, MCH 26.9, MCHC 32.2, RDW 14.5, Plt Count 403, MPV 10.9, Gran % 63.9, Lymph % (Auto) 29.8, Cloud % (Auto) 4.8, Eos % (Auto) 1.2 L, Baso % (Auto) 0.3, Gran # 5.82, Lymph # ( Auto) 2.7, Cloud # (Auto) 0.4, Eos # (Auto) 0.1, Baso # (Auto) 0.03 10/24/17 12:00: Urine Opiates Screen Negative, Urine Methadone Screen Negative, Ur Barbiturates Screen Negative, Ur Phencyclidine Scrn Negative, Ur Amphetamines Screen Negative, U Benzodiazepines Scrn Negative, U Oth Cocaine Metabols Negative, U Cannabinoids Screen Negative 10/24/17 12:00: Urine Color Yellow, Urine Appearance Clear, Urine pH 6.5, Ur Specific [place] 1.020, Urine Protein Trace H, Urine Glucose (UA) Negative, Urine Ketones Negative, Urine Blood Negative, Urine Nitrate Negative, Urine Bilirubin Negative, Urine Urobilinogen 0.2, Ur Leukocyte Esterase Moderate H, Urine RBC 0 - 2, Urine WBC 20 - 25, Ur Epithelial Cells 10 - 12, Amorphous Sediment Few, Urine Bacteria Many, Coarse Granular Casts Trace H, Urine Other Uyeast I have reviewed the lab results: Yes - RAD Interpretation Radiology Orders: 10/24/17 12:24 CHEST PORTABLE [RAD] Stat Chest one view as read by the radiologist shows no acute findings. Splitting Machine Tender: Radiologist - EKG Interpretation Interpreted by ED Physician: Yes Type: 12 lead EKG - Medication Orders Current Medication Orders: Discontinued Medications Potassium Chloride (K-Dur 20 Meq Er Tab) 20 meq PO STAT STA Stop: 10/24/17 13:08 Last Admin: 10/24/17 13:20 Dose: 20 meq Quetiapine Fumarate (Seroquel) 50 mg PO HS ESTEFANIA PRN Reason: Protocol Quetiapine Fumarate (Seroquel) 50 mg PO STAT STA PRN Reason: Protocol Stop: 10/24/17 15:29 Last Admin: 10/24/17 15:44 Dose: 50 mg - Scribe Statement The provider has reviewed the documentation as recorded by the Keke Kerns Provider Scribe Attestation: All medical record entries made by the Keke were at my direction and personally dictated by me. I have reviewed the chart and agree that the record accurately reflects my personal performance of the history, physical exam, medical decision making, and the department course for this patient. I have also personally directed, reviewed, and agree with the discharge instructions and disposition. Disposition/Present on Arrival - Present on Arrival Any Indicators Present on Arrival: No History of DVT/PE: No History of Uncontrolled Diabetes: No Urinary Catheter: No History of Decub. Ulcer: No History Surgical Site Infection Following: None - Disposition Have Diagnosis and Disposition been Completed?: Yes Diagnosis: Depression Disposition: HOME/ ROUTINE Disposition Time: 14:45 Patient Plan: Discharge Condition: GOOD Discharge Instructions (ExitCare): Depression Referrals: Marvel Pond MD [Staff Provider] - Follow up with primary Forms: [employer] (Japanese)
[2017-10-24 12:51] LABS: BASO # 0.03 K/mm3 (0.0-2.0); BASO % 0.3 % (0.0-3.0); EOS # 0.1 (0.0-0.7); EOS % 1.2 % (1.5-5.0); GRAN # 5.82 (1.4-6.5); GRAN % 63.9 % (50.0-68.0); HEMOGLOBIN 11.5 g/dL (12.0-16.0); LYMPH # 2.7 (1.2-3.4); LYMPH % 29.8 % (22.0-35.0); MEAN CELL VOLUME 83.4 fl (80.0-105.0); MEAN CORPUSCULAR HEMOGLOBIN 26.9 pg (25.0-35.0); MEAN CORPUSCULAR HGB CONC 32.2 g/dl (31.0-37.0); MEAN PLATELET VOLUME 10.9 fl (7.0-11.0); MONO # 0.4 (0.1-0.6); MONO % 4.8 % (1.0-6.0); RBC 4.28 10^6/uL (3.5-6.1); RED CELL DISTRIBUTION WIDTH 14.5 % (11.5-14.5); WHITE BLOOD COUNT 9.1 10^3/ul (4.5-11.0)
[2017-10-24 12:51] LABS: PH,URINE 6.5 (4.7-8.0); URINE BILIRUBIN NEGATIVE (NEGATIVE); URINE BLOOD NEGATIVE (NEGATIVE); URINE GLUCOSE (UA) NEGATIVE (NEGATIVE); URINE LEUKOCYTE ESTERASE MODERATE Leu/uL (NEGATIVE); URINE PROTEIN TRACE mg/dL (<30 mg/dL); URINE UROBILINOGEN 0.2 E.U./dL (<1 E.U./dL)
[2017-10-24 12:54] LABS: BARBITURATES, UR NEGATIVE (NEGATIVE); BENZODIAZEPINES, UR NEGATIVE (NEGATIVE); OPIATES, UR NEGATIVE (NEGATIVE); PHENCYCLIDINE, UR NEGATIVE (NEGATIVE)
--- NOTE | 2017-10-24 12:54 | RAD ---
Date of service: 10/24/2017 HISTORY: pes COMPARISON: 07/14/2016 FINDINGS: LUNGS: No active pulmonary disease. PLEURA: No significant pleural effusion identified, no pneumothorax apparent. CARDIOVASCULAR: Mild cardiomegaly OSSEOUS STRUCTURES: No significant abnormalities. VISUALIZED UPPER ABDOMEN: Normal. OTHER FINDINGS: None. IMPRESSION: No active disease.
[2017-10-24 12:55] LABS: URINE COLOR YELLOW (YELLOW)
[2017-10-24 12:56] LABS: URINE APPEARANCE CLEAR (CLEAR)
[2017-10-24 12:58] LABS: ACETAMINOPHEN < 10.0 ug/ml (10.0-20.0); SALICYLATE < 1 mg/dL (2.0-20.0)
[2017-10-24 12:59] LABS: ALB/GLOB RATIO 1.3 (1.1-1.8); ALT/SGPT 18 U/L (7-56); AST/SGOT 19 U/L (14-36); BLOOD UREA NITROGEN 9 mg/dL (7-21); CALCIUM 8.7 mg/dL (8.4-10.5); GFR NON-AFRICAN AMERICAN > 60
[2017-10-24] MEDS ORDERED: Potassium Chloride 20 mEq ER Tab PO STA (13:07)
[2017-10-24 13:13] LABS: URINE BACTERIA MANY (NEG); URINE RBC 0 - 2 /hpf (0-2); URINE WBC 20 - 25 /hpf (0-6)
[2017-10-24 13:15] LABS: URINE AMORPHOUS SEDIMENT FEW; URINE COARSE GRANULAR CAST TRACE /hpf (0-2)
[2017-10-24 13:54] VITALS: TEMP 98; O2SAT 98
[2017-10-24 15:04] VITALS: BP 118/78; PULSE 78; RESP 18
--- NOTE | 2017-10-24 16:01 | CARD ---
APPROVED REPORT Date of service: 10/24/2017 EKG Measurement Heart [id number] <Conclusion> Normal sinus rhythm Possible Left atrial enlargement Possible Inferior infarct, age undetermined Abnormal ECG
== END 2017-10-24 16:15 | disposition home or self-care (01) ==
LOC: ED 12:13
DX: F32.9 Major depressive disorder, single episode, unspecified (principal); F20.9 Schizophrenia, unspecified

== ENCOUNTER 2017-10-28 12:58 | Emergency (ER) | payer OTHER, MEDICARE ==
[2017-10-28 12:58] VITALS: BMI 30.9
[2017-10-28 13:30] VITALS: RESP 18; TEMP 98.7
[2017-10-28] MEDS ORDERED: Naproxen 550 mg Tab PO STA (14:01)
--- NOTE | 2017-10-28 14:04 | ED PDOC ---
Arrival/HPI - General Chief Complaint: Lower Extremity Problem/Injury Time Seen by Provider: 10/28/17 13:28 Historian: Patient - History of Present Illness Narrative History of Present Illness (Text): 10/28/17 14:03 A 67 year old female, whose past medical history includes depression and dementia, presents to the emergency department complaining of right knee pain. Patient reports she had injured her right knee about 1 year ago and currently feels pain. Patient denies any fall/trauma, or any other complaints at this time. PMD: Dr. Morton Past Medical History - Provider Review Nursing Documentation Reviewed: Yes - Past History Past History: No Previous - Infectious Disease Hx of Infectious Diseases: None - Cardiac Hx Cardiac Disorders: No - Pulmonary Hx Respiratory Disorders: No Hx Tuberculosis: No - Neurological Hx Neurological Disorder: No - HEENT Hx HEENT Disorder: No - Renal Hx Renal Disorder: No - Endocrine/Metabolic Hx Endocrine Disorders: No - Hematological/Oncological Hx Blood Disorders: No Hx Blood Transfusions: No Hx Blood Transfusion Reaction: No - Integumentary Hx Dermatological Disorder: No - Musculoskeletal/Rheumatological Hx Arthritis: Yes Hx Back Pain: Yes Other/Comment: knee sx - Gastrointestinal Hx Gastrointestinal Disorders: No - Genitourinary/Gynecological Hx Genitourinary Disorders: No Hx Sexually Transmitted Diseases: No - Psychiatric Hx Anxiety: Yes Hx Depression: Yes Hx Schizophrenia: Yes Hx Substance Use: No Other/Comment: insomnia - Past Surgical History Past Surgical History: No Previous - Anesthesia Hx Anesthesia: Yes Hx Anesthesia Reactions: No Hx Malignant Hyperthermia: No - Suicidal Assessment Feels Threatened In Home Enviroment: No Family/Social History - Physician Review Nursing Documentation Reviewed: Yes Family/Social History: No Known Family HX Smoking Status: Never Smoked Hx Alcohol Use: No Hx Substance Use: No Allergies/Home Meds Allergies/Adverse Reactions: Allergies ciprofloxacin Allergy (Verified 06/09/16 05:29) RASH Home Medications: Home Meds Medication Instructions Recorded Confirmed QUEtiapine [SEROquel] 1 tab PO DAILY 10/24/17 10/28/17 Review of Systems - Physician Review All systems were reviewed & negative as marked: Yes - Review of Systems Constitutional: absent: Other (no fall/trauma) Musculoskeletal: Other (right knee pain) Physical Exam Vital Signs Reviewed: Yes Vital Signs Temp Pulse Resp BP Pulse Ox 10/28/17 15:00 79 18 110/78 98 10/28/17 13:30 98.7 F 85 18 104/67 97 Temperature: Afebrile Blood Pressure: Normal Pulse: Regular Respiratory Rate: Normal Appearance: Positive for: Well-Appearing, Non-Toxic, Comfortable Pain Distress: None Mental Status: Positive for: Alert and Oriented X 3 - Systems Exam Head: Present: Atraumatic, Normocephalic Pupils: Present: PERRL Extroacular Muscles: Present: EOMI Conjunctiva: Present: Normal Mouth: Present: Moist Mucous Membranes Neck: Present: Normal Range of Motion Respiratory/Chest: Present: Clear to Auscultation, Good Air Exchange. No: Respiratory Distress, Accessory Muscle Use Cardiovascular: Present: Regular Rate and Rhythm, Normal S1, S2. No: Murmurs Abdomen: No: Tenderness, Distention, Peritoneal Signs Back: Present: Normal Inspection Upper Extremity: Present: Normal Inspection. No: Cyanosis, Edema Lower Extremity: Present: Tenderness (right knee tenderness) Neurological: Present: GCS=15, CN II-XII Intact, Speech Normal Skin: Present: Warm, Dry, Normal Color. No: Rashes Psychiatric: Present: Alert, Oriented x 3, Normal Insight, Normal Concentration Medical Decision Making ED Course and Treatment: 10/28/17 14:02 Impression: 67 year old female with right knee pain. Physical exam shows right knee tenderness; no other acute findings on examination. Plan: -- Right Knee X-Ray -- Naproxen -- Reassess and disposition Prior Visits: Notes and results from previous visits were reviewed. Patient was last seen in the emergency department on 10/24/2017 for auditory hallucinations and depression. Patient was discharged home. Progress Notes: 10/28/2017 14:46 Right Knee X-Ray IMPRESSION: Normal radiographs of the right knee. Dictator: Alfonso Khan MD 10/28/17 17:41 xr neg. advise outpt fu. - RAD Interpretation Radiology Orders: 10/28/17 14:00 KNEE RIGHT 2 VIEWS (AP & LAT) [RAD] Stat - Medication Orders Current Medication Orders: Discontinued Medications Naproxen (Anaprox Ds) 550 mg PO STAT STA Stop: 10/28/17 14:02 Last Admin: 10/28/17 14:28 Dose: 550 mg - Scribe Statement The provider has reviewed the documentation as recorded by the Keke Sousa Provider Scribe Attestation: All medical record entries made by the Scribe were at my direction and personally dictated by me. I have reviewed the chart and agree that the record accurately reflects my personal performance of the history, physical exam, medical decision making, and the department course for this patient. I have also personally directed, reviewed, and agree with the discharge instructions and disposition. Disposition/Present on Arrival - Present on Arrival Any Indicators Present on Arrival: No History of DVT/PE: No History of Uncontrolled Diabetes: No Urinary Catheter: No History of Decub. Ulcer: No History Surgical Site Infection Following: None - Disposition Have Diagnosis and Disposition been Completed?: Yes Diagnosis: Knee sprain Disposition: HOME/ ROUTINE Disposition Time: 03:00 Condition: STABLE Discharge Instructions (ExitCare): Knee Sprain (DC) Additional Instructions: please follow up with your doctor/clinic. please see specialist. return to any er with any worsening symptoms or concerns. Prescriptions: Naproxen [Naprosyn] 500 mg PO BID PRN #14 tablet PRN Reason: Pain, Mild (1-3) Referrals: Sherin Morton MD [Primary Care Provider] - Follow up with primary Forms: [employer] (Fijian)
--- NOTE | 2017-10-28 14:48 | RAD ---
Date of service: 10/28/2017 PROCEDURE: Left Knee Radiographs. HISTORY: Pain. COMPARISON: None. FINDINGS: BONES: Normal. No fracture. JOINTS: Normal. No osteoarthritis. JOINT EFFUSION: None. OTHER FINDINGS: None. IMPRESSION: Normal radiographs of the left knee.
[2017-10-28 15:01] VITALS: BP 110/78; PULSE 79; O2SAT 98
== END 2017-10-28 15:40 | disposition home or self-care (01) ==
LOC: ED 12:58
DX: S83.91XA Sprain of unspecified site of right knee, initial encounter (principal); X58.XXXA Exposure to other specified factors, initial encounter; Y92.9 Unspecified place or not applicable

== ENCOUNTER 2017-12-04 13:15 | Inpatient (IN) | payer MEDICARE, OTHER ==
[2017-12-04 13:15] VITALS: BMI 30.9
[2017-12-04 14:06] LABS: URINE BILIRUBIN NEGATIVE (NEGATIVE); URINE BLOOD NEGATIVE (NEGATIVE); URINE GLUCOSE (UA) NEGATIVE (NEGATIVE); URINE LEUKOCYTE ESTERASE MODERATE Leu/uL (NEGATIVE); URINE PROTEIN NEGATIVE mg/dL (<30 mg/dL); URINE UROBILINOGEN 0.2 E.U./dL (<1 E.U./dL)
[2017-12-04 14:11] LABS: URINE APPEARANCE CLEAR (CLEAR); URINE COLOR YELLOW (YELLOW)
--- NOTE | 2017-12-04 14:13 | ED PDOC ---
Arrival/HPI - General Historian: Patient - History of Present Illness Narrative History of Present Illness (Text): 12/04/17 14:04 67yo female with pmhx of anxiety and chronic left knee pain who was [facility] for psych evaluation. Patient states she has been screaming and shutting doors loudly. She reports auditory hallucination. States the voices area telling her to kill herself. she however denies SI. Reports insomnia for 14days. States she have not taken her anxiolytic (xanax) for a while now, and her Oxycodone. States she changed her PMD and the new PMD referred her to her therapist to get her anxiolytic. She denies homicidal ideation and any somatic complaint. <Janice Salazar A - Last Filed: 12/04/17 18:48> <Gia Arguelles A - Last Filed: 12/10/17 11:04> - General Chief Complaint: Psychiatric Evaluation Time Seen by Provider: 12/04/17 13:38 Past Medical History - Provider Review Nursing Documentation Reviewed: Yes - Past History Past History: No Previous - Infectious Disease Hx of Infectious Diseases: None - Cardiac Hx Cardiac Disorders: No - Pulmonary Hx Respiratory Disorders: No Hx Tuberculosis: No - Neurological Hx Neurological Disorder: No - HEENT Hx HEENT Disorder: No - Renal Hx Renal Disorder: No - Endocrine/Metabolic Hx Endocrine Disorders: No - Hematological/Oncological Hx Blood Disorders: No Hx Blood Transfusions: No Hx Blood Transfusion Reaction: No - Integumentary Hx Dermatological Disorder: No - Musculoskeletal/Rheumatological Hx Arthritis: Yes Hx Back Pain: Yes Other/Comment: knee sx - Gastrointestinal Hx Gastrointestinal Disorders: No - Genitourinary/Gynecological Hx Genitourinary Disorders: No Hx Sexually Transmitted Diseases: No - Psychiatric Hx Anxiety: Yes Hx Depression: Yes Hx Schizophrenia: Yes Hx Substance Use: No Other/Comment: insomnia - Past Surgical History Past Surgical History: No Previous - Anesthesia Hx Anesthesia: Yes Hx Anesthesia Reactions: No Hx Malignant Hyperthermia: No - Suicidal Assessment Feels Threatened In Home Enviroment: No <MartinHappiness A - Last Filed: 12/04/17 18:48> Family/Social History - Physician Review Nursing Documentation Reviewed: Yes Family/Social History: Unknown Family HX Smoking Status: Never Smoked Hx Alcohol Use: No Hx Substance Use: No <Janice Salazar A - Last Filed: 12/04/17 18:48> Allergies/Home Meds <MartinHappiness A - Last Filed: 12/04/17 18:48> <BlaneCrystale A - Last Filed: 12/10/17 11:04> Allergies/Adverse Reactions: Allergies ciprofloxacin Allergy (Verified 06/09/16 05:29) RASH Home Medications: Home Meds Medication Instructions Recorded Confirmed PARoxetine [Paxil] 5 mg PO DAILY 12/05/17 12/05/17 QUEtiapine [SEROquel] 50 mg PO DAILY 12/05/17 12/05/17 Review of Systems - Physician Review All systems were reviewed & negative as marked: Yes - Review of Systems Constitutional: Normal Eyes: Normal ENT: Normal Respiratory: Normal Cardiovascular: Normal Gastrointestinal: Normal Genitourinary Female: Normal Musculoskeletal: Normal Skin: Normal Neurological: Normal Endocrine: Normal Hemo/Lymphatic: Normal Psychiatric: Other (Hallucination) <Diru,Happiness A - Last Filed: 12/04/17 18:48> Physical Exam Vital Signs Reviewed: Yes Temperature: Afebrile Blood Pressure: Normal Pulse: Regular Respiratory Rate: Normal Appearance: Positive for: Well-Appearing, Non-Toxic, Comfortable Pain Distress: None Mental Status: Positive for: Alert and Oriented X 3 - Systems Exam Head: Present: Atraumatic, Normocephalic Pupils: Present: PERRL Extroacular Muscles: Present: EOMI Conjunctiva: Present: Normal Mouth: Present: Moist Mucous Membranes Neck: Present: Normal Range of Motion Respiratory/Chest: Present: Clear to Auscultation, Good Air Exchange. No: Respiratory Distress, Accessory Muscle Use Cardiovascular: Present: Regular Rate and Rhythm, Normal S1, S2. No: Murmurs Abdomen: No: Tenderness, Distention, Peritoneal Signs Back: Present: Normal Inspection Upper Extremity: Present: Normal Inspection. No: Cyanosis, Edema Lower Extremity: Present: Normal Inspection. No: Edema Neurological: Present: GCS=15, CN II-XII Intact, Speech Normal Skin: Present: Warm, Dry, Normal Color. No: Rashes Psychiatric: Present: Alert, Oriented x 3, Normal Insight, Normal Concentration <Diru,Happiness A - Last Filed: 12/04/17 18:48> Vital Signs Temp Pulse Resp BP Pulse Ox 12/04/17 17:20 98 F 79 18 142/77 97 12/04/17 14:43 98.0 F 77 16 146/88 97 <Gia Arguelles A - Last Filed: 12/10/17 11:04> Medical Decision Making ED Course and Treatment: 12/04/17 16:18 67yo female in ED for psychiatric evaluation. Pt appear calm and cooperative in ED Labs EKG CXR Lab was reviewed, unremarkable and pt was medically cleared for psychiatric evaluation EKG NSR @76bpm NSTEMI CXR IMPRESSION: No active disease. No significant interval change compared to the prior examination(s). She was seen in ED by ELIGIO Naqvi who DC with Dr. Delgadillo and pt was admitted for Schizoaffective disorder <Janice Salazar - Last Filed: 12/04/17 18:48> - Lab Interpretations Lab Results: 12/04/17 14:35 12/04/17 14:35 Lab Results 12/04/17 14:35: Alcohol, Quantitative < 10 12/04/17 14:35: Salicylates < 1 L, Acetaminophen < 10.0 L 12/04/17 14:35: Sodium 139, Potassium 5.0, Chloride 104, Carbon Dioxide 26, Anion Gap 14, BUN 22 H, Creatinine 0.8, Est GFR ( Amer) > 60, Est GFR (Non-Af Amer) > 60, Random Glucose 105, Calcium 8.6, Magnesium 2.0, Total Bilirubin 0.7, AST 24, ALT 29, Alkaline Phosphatase 90, Total Protein 7.3, [place] min 4.1, Globulin 3.2, Albumin/Globulin Ratio 1.3 12/04/17 14:35: WBC 8.2, RBC 4.15, Hgb 11.2 L, Hct 34.8 L, MCV 83.9, MCH 27.0, MCHC 32.2, RDW 14.9 H, Plt Count 319, MPV 10.8, Gran % 68.7 H, Lymph % (Auto) 22.7, [place] % (Auto) 7.4 H, Eos % (Auto) 1.1 L, Baso % (Auto) 0.1, Gran # 5.64, Lymph # (Auto) 1.9, [place] # (Auto) 0.6, Eos # (Auto) 0.1, Baso # (Auto) 0.01 12/04/17 13:55: Urine Opiates Screen Negative, Urine Methadone Screen Negative, Ur Barbiturates Screen Negative, Ur Phencyclidine Scrn Negative, Ur Amphetamines Screen Negative, U Benzodiazepines Scrn Negative, U Oth Cocaine Metabols Nega tive, U Cannabinoids Screen Negative 12/04/17 13:55: Urine Color Yellow, Urine Appearance Clear, Urine pH 6.0, Ur Specific [place] 1.025, Urine Protein Negative, Urine Glucose (UA) Negative, Urine Ketones Negative, Urine Blood Negative, Urine Nitrate Negative, Urine Bilirubin Negative, Urine Urobilinogen 0.2, Ur Leukocyte Esterase Moderate H, Urine RBC 0 - 2, Urine WBC 10 - 15, Ur Epithelial Cells 1 - 3, Urine Bacteria Small - Medication Orders Current Medication Orders: Fluoxetine HCl (Prozac) 30 mg PO DAILY [facility] Last Admin: 12/10/17 09:27 Dose: 30 mg Ibuprofen (Motrin Tab) 200 mg PO BID [facility] Last Admin: 12/10/17 09:29 Dose: 200 mg MAR Pain/Vitals Document 12/10/17 09:29 DC (Rec: 12/10/17 09:30 DC [id number]) Pain Reassessment Is This A Pain ReAssessment? No Sleep Is patient sleeping during reassessment? No Presence of Pain Presence of Pain Yes Pain Scale Used Protocol: PSCALES Pain Scale Used Numeric Location Pain Location Body Site Generalized Description Constant Intensity 7 Scale Used Numeric Pain Behavior Irritability Aggravating Factors ADL's Alleviating Factors Medication Lorazepam (Ativan) 1 mg PO Q6H PRN; Protocol PRN Reason: Agitation Last Admin: 12/09/17 19:39 Dose: 1 mg Behavioural Document 12/09/17 19:39 RGO (Rec: 12/09/17 19:39 RGO [id number] Maintenance Maintenance Dose No Nonmedicinal Nonmedicinal Interventions Therapeutic Communication Behavior Behavior for Medication: Anxiety Re-Assess: Reassess Psych Meds Document 12/09/17 20:39 DC (Rec: 12/09/17 21:06 DC [id number]) Reassess Psych Med Effective Lorazepam (Ativan) 1 mg IM Q6H PRN; Protocol PRN Reason: Anxiety Polysaccharide Iron Complex (Ferrex-150) 150 mg PO DAILY [facility] Last Admin: 12/10/17 09:30 Dose: 150 mg Quetiapine Fumarate (Seroquel) 150 mg PO [facility]; Protocol Last Admin: 12/10/17 09:27 Dose: 150 mg Behavioural Document 12/10/17 09:27 DC (Rec: 12/10/17 09:28 DC [id number]) Maintenance Maintenance Dose Yes Ziprasidone (Geodon Cap) 20 mg PO Q6 PRN; Protocol PRN Reason: Agitation Last Admin: 12/09/17 21:52 Dose: 20 mg Behavioural Document 12/09/17 21:52 DCP (Rec: 12/09/17 21:52 DCP [id number]) Maintenance Maintenance Dose No Nonmedicinal Nonmedicinal Interventions Therapeutic Communication Behavior Behavior for Medication: Insomnia Re-Assess: Reassess Psych Meds Document 12/09/17 22:52 DCP (Rec: 12/09/17 23:09 DCP [id number]) Reassess Psych Med Effective Ziprasidone (Geodon Inj) 20 mg IM Q6H PRN; Protocol PRN Reason: Agitation Discontinued Medications Cyanocobalamin (Vitamin B12 1000 Mcg/Ml Inj) 1,000 mcg IM 0700 [facility] Stop: 12/07/17 07:01 Last Admin: 12/07/17 06:49 Dose: 1,000 mcg IM Administration Charges Document 12/07/17 06:49 DCP (Rec: 12/07/17 06:49 DCP [id number] Injection Site MAR Injection Site Left Deltoid Charges for Administration # of IM Administrations 1 Fluoxetine HCl (Prozac) 10 mg PO DAILY [facility] Last Admin: 12/06/17 09:21 Dose: 10 mg Fluoxetine HCl (Prozac) 20 mg PO DAILY [facility] Last Admin: 12/09/17 10:13 Dose: 20 mg Paroxetine HCl (Paxil) 5 mg PO [facility] Last Admin: 12/04/17 21:54 Dose: 5 mg Quetiapine Fumarate (Seroquel) 50 mg PO [facility]; Protocol Last Admin: 12/06/17 09:21 Dose: 50 mg Quetiapine Fumarate (Seroquel) 100 mg PO [facility]; Protocol Last Admin: 12/09/17 10:14 Dose: 100 mg Behavioural Document 12/09/17 10:14 DC (Rec: 12/09/17 10:14 DC [id number]) Maintenance Maintenance Dose Yes Re-Assess: Reassess Psych Meds Document 12/09/17 11:14 DC (Rec: 12/09/17 12:04 DC [id number]) Reassess Psych Med Effective Trimethoprim/Sulfamethoxazole (Bactrim Ds Tab) 1 tab PO BID [facility]; Protocol Last Admin: 12/10/17 09:48 Dose: 1 tab <Gia Arguelles - Last Filed: 12/10/17 11:04> - PA / COMPUTER PROJECT MANAGER / Resident Statement /DO has reviewed & agrees with the documentation as recorded. <Gia Arguelles - Last Filed: 12/10/17 11:04> Disposition/Present on Arrival - Present on Arrival Any Indicators Present on Arrival: No History of DVT/PE: No History of Uncontrolled Diabetes: No Urinary Catheter: No History of Decub. Ulcer: No History Surgical Site Infection Following: None - Disposition Have Diagnosis and Disposition been Completed?: Yes Disposition Time: 16:00 Patient Plan: Admission <Janice Salazar - Last Filed: 12/04/17 18:48> <Gia Arguelles - Last Filed: 12/10/17 11:04> - Disposition Diagnosis: Schizoaffective disorder Disposition: HOSPITALIZED Patient Problems: Current Active Problems Problem Status Onset Schizoaffective disorder Acute Condition: STABLE
[2017-12-04 14:37] LABS: BARBITURATES, UR NEGATIVE (NEGATIVE); BENZODIAZEPINES, UR NEGATIVE (NEGATIVE); OPIATES, UR NEGATIVE (NEGATIVE); PHENCYCLIDINE, UR NEGATIVE (NEGATIVE)
[2017-12-04 14:41] LABS: URINE BACTERIA SMALL (NEG); URINE RBC 0 - 2 /hpf (0-2)
[2017-12-04 14:44] VITALS: O2SAT 97
[2017-12-04 14:48] LABS: BASO # 0.01 K/mm3 (0.0-2.0); BASO % 0.1 % (0.0-3.0); EOS # 0.1 (0.0-0.7); EOS % 1.1 % (1.5-5.0); GRAN # 5.64 (1.4-6.5); GRAN % 68.7 % (50.0-68.0); HEMOGLOBIN 11.2 g/dL (12.0-16.0); LYMPH # 1.9 (1.2-3.4); LYMPH % 22.7 % (22.0-35.0); MEAN CELL VOLUME 83.9 fl (80.0-105.0); MEAN CORPUSCULAR HGB CONC 32.2 g/dl (31.0-37.0); MEAN PLATELET VOLUME 10.8 fl (7.0-11.0); MONO # 0.6 (0.1-0.6); MONO % 7.4 % (1.0-6.0); RBC 4.15 10^6/uL (3.5-6.1); RED CELL DISTRIBUTION WIDTH 14.9 % (11.5-14.5); WHITE BLOOD COUNT 8.2 10^3/ul (4.5-11.0)
--- NOTE | 2017-12-04 14:50 | CARD ---
APPROVED REPORT Date of service: 12/04/2017 EKG Measurement Heart [id number] <Conclusion> Normal sinus rhythm Possible IMI, age unknown NSSTW changes
[2017-12-04 15:00] LABS: ALB/GLOB RATIO 1.3 (1.1-1.8); ALBUMIN 4.1 g/dL (3.0-4.8); ALT/SGPT 29 U/L (7-56); AST/SGOT 24 U/L (14-36); BLOOD UREA NITROGEN 22 mg/dL (7-21); CALCIUM 8.6 mg/dL (8.4-10.5); GFR NON-AFRICAN AMERICAN > 60
[2017-12-04 15:01] LABS: ACETAMINOPHEN < 10.0 ug/ml (10.0-20.0); SALICYLATE < 1 mg/dL (2.0-20.0)
--- NOTE | 2017-12-04 16:34 | RAD ---
Date of service: 12/04/2017 HISTORY: Admission COMPARISON: No prior. FINDINGS: LUNGS: No active pulmonary disease. PLEURA: No significant pleural effusion identified, no pneumothorax apparent. CARDIOVASCULAR: No atherosclerotic calcification present No radiographic findings to suggest acute or significant cardiovascular disease. OSSEOUS STRUCTURES: No significant abnormalities. VISUALIZED UPPER ABDOMEN: Normal. OTHER FINDINGS: None. IMPRESSION: No active disease. No significant interval change compared to the prior examination(s).
--- NOTE | 2017-12-04 19:01 | PCM.BM ---
<Gregory Navarro - Last Filed: 12/04/17 18:58> Treatment Plan Problems - Problems identified on initial assessmt Auditory Hallucinations Date Initiated: 12/04/17 Time Initiated: 18:59 Assessment reference: HP, Other Status: Active Medications Nonadherence Date Initiated: 12/04/17 Time Initiated: 19:00 Assessment reference: HP, Other Status: Active Altered Sleep Pattern Date Initiated: 12/04/17 Time Initiated: 19:00 Assessment reference: HP, Other Status: Active Treatment assets and liabiliti Patient Assests: cooperative, self-reliant, ADL independent, negotiates basic needs, good past tx response, other Patient Liabilities: live alone, physical pain, financial problems, relationship conflicts, other - Milieu Protocol Maintain good personal hygiene: daily Encourage regular showers, daily Remind patient to perform daily oral care, daily Assist patient to perform ADL's Maintain personal safety: daily Educate patient to report safety concerns to staff, daily Monitor environment for contraband/sharps Medication safety: Monitor for expected outcome, potential side effects: daily, Assess barriers to learning: daily, Assess readiness for medication education: daily Discharge/Continuing Care - Education Needs Education Needs: Patient Medication, Patient Diagnosis/Disease Process, Patient Coping Skills, Patient Placement options, Patient Community resources, Patient Activities of Daily Living, Patient Uses of Medical Equipment, Patient Health Practices/Safety, Patient Personal Hygiene/Grooming, Patient Aftercare Safety Plan, Patient Other - Discharge Discharge Criteria: Tolerates medication w/o severe side effects, Free of Suicidal thoughts, Free of Homicidal thoughts, Free of paranoid thoughts, Free of agitation, Normal sleep pattern, Ability to care for self <Leona Yung - Last Filed: 12/05/17 15:26> - Diagnosis (1) Schizoaffective disorder Status: Acute Interventions: 12/05/17 15:27 Psychoeducation/psychotherapy Psychopharmacology/adjustment of medications as needed/ monitoring possible side effects Evaluate pt on daily basis Compliance with medications and follow up appointments Long acting medication if pt is noncompliant with pill form Suicide and homicide risk assessment and prevention, coping strategies, safety plan Relapse prevention Reduction of symptoms Improve functional status Possible assertive community treatment Cognitive behavioral therapy Family involvement Possible social skill training as outpatient <Briseida Cuellar - Last Filed: 12/06/17 15:16> Family Contact Family involvement: Famliy/SO not involved <Donya Leonard - Last Filed: 12/06/17 16:24>
[2017-12-05 08:11] LABS: GLUCOSE,FASTING 90 mg/dL (65-110); HDL CHOLESTEROL 58 mg/dL (29-60); IRON 85 ug/dL (45-180)
[2017-12-05 08:22] LABS: LDL CHOLESTEROL 90 mg/dL (0-129)
[2017-12-05 08:23] LABS: % IRON SATURATION 18 % (20-55); TOTAL IRON BINDING CAPACITY 461 ug/dL (265-497)
[2017-12-05 08:30] LABS: FREE T4 1.08 ng/dL (0.78-2.19)
[2017-12-05 13:09] LABS: FOLATE 11.6 ng/mL
--- NOTE | 2017-12-05 13:10 | CON ---
DATE: 12/05/2017 TIME: 08:30 a.m. ROOM # 517, bed 2. The patient is a 67-year-old female with complaint of bilateral knee pain, worse on the right than the left, significant past history that she did have a fracture of lateral tibial plateau, fixed well with plate in 2014, and then she has mild osteoarthritis of the right knee, now medial side, suggestive of early osteoarthritis, with good range of motion, no effusion, this is a good sign this could be treated conservatively with proper therapy, strengthening exercises and place with good shoes and possibly with a cane and to take [id number] anti-inflammatory medicines as long as her stomach can handle it well. She has no history of stomach discomfort so we will give Motrin 300 mg one twice a day and see how she does along with therapy to strengthen her muscles and no need for an injection or any other invasive procedure. FINAL DIAGNOSES: Mild osteoarthritis, right knee and left knee post-traumatic. Alfonso Car DO
--- NOTE | 2017-12-05 15:26 | PCM.PSYCH ---
Initial Psychiatric Evaluation - Initial Psychiatric Evaluation Type of Admission: Voluntary Legal Status: Capacity (patient has capacity to sign consent for treatment) Chief Complaint (in patient's own words): "I was hearing voices that time slot, I wanted to end up my life, 1 week ago I drank cleaning liquid "Fabuloso", it tasted awful, I had plenty of water later, I did not tell anyone, it is because of the voices, they told me to end it all" Patient's Reaction to Hospitalization: patient was admitted to the psychiatric inpatient unit for evaluation and stabilization of psychotic symptoms, possible suicidal ideation, inability to fu nction, patient was not compliant with the medications and follow-up appointments because of paranoia, patient requires further hospitalization and stabilization. History of Present Illness and Precipitating Events: shortly patient is 67yo female with pmhx of psychosis, most likely schizoaffective disorder, at least 3 previous psychiatric admissions 2015, 2017, multiple medical issues including chronic left knee pain, patient was brought in by EMS for evaluation of psychotic symptoms, patient presented to be disorganized, responding to internal stimuli, psychotic, depressed, possible suicidal ideation, obviously patient requires further evaluation and stabilizat ion in acute psychiatric inpatient unit. reggie is very familiar to this publicity writer from the previous admission to the psychiatric inpatient unit which took place here in [facility] on July 2016. Patient presented with poor personal hygiene, malodorous, smells like urine, poor ADLs. in the emergency room patient presented to be in acute distress, patient was saying that she constantly hears screaming and shouting doors loudly, reported to have auditory hallucinations, patient reported to hear voices telling her to kill herself, patient reported about a week ago she tried to overdose on cleaning solution, did not tell anyone about that attempt, "I just drink plenty of water", patient reported nsomnia, patient was not able to sleep for at least 14 days, patient was not able to go to see her private psychiatrist as well as primary care physician due to paranoia and inability to leave the house. patient reported being noncompliant with the medications for at least 4 months due to paranoia. pt responded well to Seroquel as well as Paxil in the past. [facility] [place] patient did not feel medications since August 2017. patient denied history of abuse. Patient denied using drugs, denied smoking, denied alcohol consumption. PSYCHIATRIC HISTORY Most recent admissions to [facility] were 06/09/16-06/17/16. Patient was discharged on Paxil 20 mg HS for depression and anxiety, Seroquel 200 mg HS for disorganization, paranoia and hallucinations. Patient was also admitted 01/23/16-02/01/16, discharged on Paxil 30 mg HS and Seroquel 300 mg HS. Patient was admitted at that time for confusion, hallucinations and bizarre behavior (she was wandering on the streets without shoes). Apartment was filthy with feces on the floor. SOCIAL HISTORY Patient was born and raised in [place]. She is and has no children. Patient lives by herself and she is unemployed. 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 Patient denies any drug or alcohol or tobacco use. medical history:Patient has chronic pain in her knee, Ortho was consulted, medical team also was called for evaluation Of possible urinary tract infection, leukocyte esterase positive 12/04/17 14:35 12/04/17 14:35 Lab Results 12/05/17 07:40: Hemoglobin A1c 5.9 12/05/17 07:40: Iron 85, TIBC 461, % Saturation 18 L 12/05/17 07:40: Vitamin B12 < 159 L, Folate 11.6 12/05/17 07:40: Free T4 1.08, TSH 3rd Generation 1.69 12/05/17 07:40: Fasting Glucose 90, Triglycerides 92, Cholesterol 167, LDL Cholesterol Direct 90, HDL Cholesterol 58 12/04/17 14:35: Alcohol, Quantitative < 10 12/04/17 14:35: Salicylates < 1 L, Acetaminophen < 10.0 L 12/04/17 14:35: Sodium 139, Potassium 5.0, Chloride 104, Carbon Dioxide 26, Anion Gap 14, BUN 22 H, Creatinine 0.8, Est GFR ( Amer) > 60, Est GFR (Non-Af Amer) > 60, Random Glucose 105, Calcium 8.6, Magnesium 2.0, Total Bilirubin 0.7, AST 24, ALT 29, Alkaline Phosphatase 90, Total Protein 7.3, Albumin 4.1, Globulin 3.2, Albumin/Globulin Ratio 1.3 12/04/17 14:35: WBC 8.2, RBC 4.15, Hgb 11.2 L, Hct 34.8 L, MCV 83.9, MCH 27.0, MCHC 32.2, RDW 14.9 H, Plt Count 319, MPV 10.8, Gran % 68.7 H, Lymph % (Auto) 22.7, Schley % (Auto) 7.4 H, Eos % (Auto) 1.1 L, Baso % (Auto) 0.1, Gran # 5.64, Lymph # (Auto) 1.9, Schley # (Auto) 0.6, Eos # (Auto) 0.1, Baso # (Auto) 0.01 12/04/17 13:55: Urine Opiates Screen Negative, Urine Methadone Screen Negative, Ur Barbiturates Screen Negative, Ur Phencyclidine Scrn Negative, Ur Amphetamines Screen Negative, U Benzodiazepines Scrn Negative, U Oth Cocaine Metabols Negative, U Cannabinoids Screen Negative 12/04/17 13:55: Urine Color Yellow, Urine Appearance Clear, Urine pH 6.0, Ur Specific [place] 1.025, Urine Protein Negative, Urine Glucose (UA) Negative, Urine Ketones Negative, Urine Blood Negative, Urine Nitrate Negative, Urine Bilirubin Negative, Urine Urobilinogen 0.2, Ur Leukocyte Esterase Moderate H, Urine RBC 0 - 2, Urine WBC 10 - 15, Ur Epithelial Cells 1 - 3, Urine Bacteria Small Vital Signs Temp Pulse Resp BP Pulse Ox 12/05/17 07:35 97.9 F 68 20 151/62 H 12/04/17 17:20 98 F 79 18 142/77 97 12/04/17 14:43 98.0 F 77 16 146/88 97 The patient failed the outpatient lower level of care: Yes Current Medications: Active Medications Generic Name Dose Route Start Last Admin Trade Name Freq PRN Reason Stop Dose Admin Ibuprofen 200 mg 12/05/17 08:31 Motrin Tab PO BID ESTEFANIA Lorazepam 1 mg 12/04/17 18:40 12/05/17 03:42 Ativan PO 1 mg Q6H PRN Administration Agitation Protocol Lorazepam 1 mg 12/04/17 18:42 Ativan IM Q6H PRN Anxiety Protocol Paroxetine HCl 5 mg 12/04/17 22:00 12/04/17 21:54 Paxil PO 5 mg HS ESTEFANIA Administration Quetiapine Fumarate 50 mg 12/04/17 22:00 12/04/17 21:54 Seroquel PO 50 mg AMHS ESTEFANIA Administration Protocol Ziprasidone 20 mg 12/04/17 18:39 Geodon Cap PO Q6 PRN Agitation Protocol Ziprasidone 20 mg 12/04/17 18:43 Geodon Inj IM Q6H PRN Agitation Protocol Present on Admission - Present on Admission Any Indicators Present on Admission: No Review of Systems - Review of Systems Systems not reviewed;Unavailable: Acuity of Condition - Constitutional Constitutional: As Per HPI - EENT Eyes: As Per HPI Ears: As Per HPI Nose/Mouth/Throat: As Per HPI - Breasts Breasts: As Per HPI - Cardiovascular Cardiovascular: As Per HPI - Respiratory Respiratory: As Per HPI - Gastrointestinal Gastrointestinal: As Per HPI - Genitourinary Genitourinary: As Per HPI - Reproductive: Female Reproductive:Female: As Per HPI - Menstruation Menstruation: As Per HPI - Musculoskeletal Musculoskeletal: As Per HPI - Integumentary Integumentary: As Per HPI - Neurological Neurological: As Per HPI - Psychiatric Psychiatric: As Per HPI - Endocrine Endocrine: As Per HPI - Hematologic/Lymphatic Hematologic: As Per HPI Past Patient History - Past Psychiatric History Previous Treatment History: Inpatient Prior Professional Help: see HPI Prior Psychiatric Treatment: see HPI At what hospital: see HPI Duration: see HPI Nature of Treatment: see HPI Explanation of prior treatment: see HPI - PSYCHIATRIC Hx Psychophysiologic Disorder: Yes Hx Depression: Yes Hx Schizophrenia: Yes - Infectious Disease Hx of Infectious Diseases: None - CARDIAC Hx Cardiac Disorders: No - PULMONARY Hx Respiratory Disorders: No Hx Tuberculosis: No - NEUROLOGICAL Hx Neurological Disorder: No - HEENT Hx HEENT Problems: No - RENAL Hx Chronic Kidney Disease: No - ENDOCRINE/METABOLIC Hx Endocrine Disorders: No - HEMATOLOGICAL/ONCOLOGICAL Hx Blood Disorders: No Hx Blood Transfusions: No Hx Blood Transfusion Reaction: No - INTEGUMENTARY Hx Dermatological Problems: No - MUSCULOSKELETAL/RHEUMATOLOGICAL Hx Arthritis: Yes Hx Back Pain: Yes Other/Comment: knee sx - GASTROINTESTINAL Hx Gastrointestinal Disorders: No - GENITOURINARY/GYNECOLOGICAL Hx Genitourinary Disorders: No Hx Sexually Transmitted Disorders: No - SURGICAL HISTORY Hx Surgeries: Yes (left knee surgery) - ANESTHESIA Hx Anesthesia: Yes Hx Anesthesia Reactions: No Hx Malignant Hyperthermia: No - Medical/Surgical History Reviewed & confirmed: by ut Meds Allergies/Adverse Reactions: Allergies Allergy/AdvReac Type Severity Reaction Status Date / Time ciprofloxacin Allergy RASH Verified 06/09/16 05:29 Mental Status Examination - Personal Presentation Personal Presentation: Looks stated age - Affect Affect: Flat - Motor Activity Motor Activity: Calm - Reliability in Providing Information Reliability in Providing Information: Poor, due to alteration in thoughts, Poor, due to altered mood - Speech Speech: Disorganized, Tangential - Mood Mood: Depressed - Formal Thought Process Formal Thought Process: Hallucinations, Delusions, Paranoia, Loosening of a ssociations, Circumstantial - Hallucinations/Delusions Hallucinations: Auditory Delusions: Persecution - Obsessions/Compulsions Obsessions: None Compulsions: None - Cognitive Functions Orientation: Person, Place, Situation Sensorium: Alert Attention/Concentration: Easily distracted Abstract Thinking: [place] Estimate of Intelligence: Average Judgement: Intact, as evidence by: Insight regarding need for hospitalization - Risk Risk: Suicidal, Self-mutilation, Diminished functioning - Strength & Assets Inventory Strength & Assets Inventory: Skills, Cooperative - Limitations Limitations: Other (severe symptoms, psychosis, h/o acting on voices) Psychiatric Physical Exam - Physical Exam Reviewed and confirmed: Emergency Department Physical Exam Results - Vital Signs Recent Vital Signs: Last Vital Signs Temp 97.9 F 12/05/17 07:35 Pulse 68 12/05/17 07:35 Resp 20 12/05/17 07:35 BP 151/62 H 12/05/17 07:35 Pulse Ox 97 12/04/17 17:20 - Labs Result Diagrams: 12/04/17 14:35 12/04/17 14:35 Labs: Laboratory Results - last 24 hr 12/04/17 12/04/17 12/04/17 13:55 13:55 14:35 WBC 8.2 RBC 4.15 Hgb 11.2 L Hct 34.8 L MCV 83.9 MCH 27.0 MCHC 32.2 RDW 14.9 H Plt Count 319 MPV 10.8 Gran % 68.7 H Lymph % (Auto) 22.7 Schley % (Auto) 7.4 H Eos % (Auto) 1.1 L Baso % (Auto) 0.1 Gran # 5.64 Lymph # (Auto) 1.9 Schley # (Auto) 0.6 Eos # (Auto) 0.1 Baso # (Auto) 0.01 Sodium Potassium Chloride Carbon Dioxide Anion Gap BUN Creatinine Est GFR ( Amer) Est GFR (Non-Af Amer) Random Glucose Fasting Glucose Calcium Magnesium Iron TIBC % Saturation Total Bilirubin AST ALT Alkaline Phosphatase Total Protein Albumin Globulin Albumin/Globulin Ratio Triglycerides Cholesterol LDL Cholesterol Direct HDL Cholesterol Free T4 TSH 3rd Generation Urine Color Yellow Urine Appearance Clear Urine pH 6.0 Ur Specific [place] 1.025 Urine Protein Negative Urine Glucose (UA) Negative Urine Ketones Negative Urine Blood Negative Urine Nitrate Negative Urine Bilirubin Negative Urine Urobilinogen 0.2 Ur Leukocyte Esterase Moderate H Urine RBC 0 - 2 Urine WBC 10 - 15 Ur Epithelial Cells 1 - 3 Urine Bacteria Small Salicylates Urine Opiates Screen Negative Urine Methadone Screen Negative Acetaminophen Ur Barbiturates Screen Negative Ur Phencyclidine Scrn Negative Ur Amphetamines Screen Negative U Benzodiazepines Scrn Negative U Oth Cocaine Metabols Negative U Cannabinoids Screen Negative Alcohol, Quantitative 12/04/17 12/04/17 12/04/17 14:35 14:35 14:35 WBC RBC Hgb Hct MCV MCH MCHC RDW Plt Count MPV Gran % Lymph % (Auto) Schley % (Auto) Eos % (Auto) Baso % (Auto) Gran # Lymph # (Auto) Schley # (Auto) Eos # (Auto) Baso # (Auto) Sodium 139 Potassium 5.0 Chloride 104 Carbon Dioxide 26 Anion Gap 14 BUN 22 H Creatinine 0.8 Est GFR ( Amer) > 60 Est GFR (Non-Af Amer) > 60 Random Glucose 105 Fasting Glucose Calcium 8.6 Magnesium 2.0 Iron TIBC % Saturation Total Bilirubin 0.7 AST 24 ALT 29 Alkaline Phosphatase 90 Total Protein 7.3 Albumin 4.1 Globulin 3.2 Albumin/Globulin Ratio 1.3 Triglycerides Cholesterol LDL Cholesterol Direct HDL Cholesterol Free T4 TSH 3rd Generation Urine Color Urine Appearance Urine pH Ur Specific [place] Urine Protein Urine Glucose (UA) Urine Ketones Urine Blood Urine Nitrate Urine Bilirubin Urine Urobilinogen Ur Leukocyte Esterase Urine RBC Urine WBC Ur Epithelial Cells Urine Bacteria Salicylates < 1 L Urine Opiates Screen Urine Methadone Screen Acetaminophen < 10.0 L Ur Barbiturates Screen Ur Phencyclidine Scrn Ur Amphetamines Screen U Benzodiazepines Scrn U Oth Cocaine Metabols U Cannabinoids Screen Alcohol, Quantitative < 10 12/05/17 12/05/17 12/05/17 07:40 07:40 07:40 WBC RBC Hgb Hct MCV MCH MCHC RDW Plt Count MPV Gran % Lymph % (Auto) Schley % (Auto) Eos % (Auto) Baso % (Auto) Gran # Lymph # (Auto) Schley # (Auto) Eos # (Auto) Baso # (Auto) Sodium Potassium Chloride Carbon Dioxide Anion Gap BUN Creatinine Est GFR ( Amer) Est GFR (Non-Af Amer) Random Glucose Fasting Glucose 90 Calcium Magnesium Iron 85 TIBC 461 % Saturation 18 L Total Bilirubin AST ALT Alkaline Phosphatase Total Protein Albumin Globulin Albumin/Globulin Ratio Triglycerides 92 Cholesterol 167 LDL Cholesterol Direct 90 HDL Cholesterol 58 Free T4 1.08 TSH 3rd Generation 1.69 Urine Color Urine Appearance Urine pH Ur Specific [place] Urine Protein Urine Glucose (UA) Urine Ketones Urine Blood Urine Nitrate Urine Bilirubin Urine Urobilinogen Ur Leukocyte Esterase Urine RBC Urine WBC Ur Epithelial Cells Urine Bacteria Salicylates Urine Opiates Screen Urine Methadone Screen Acetaminophen Ur Barbiturates Screen Ur Phencyclidine Scrn Ur Amphetamines Screen U Benzodiazepines Scrn U Oth Cocaine Metabols U Cannabinoids Screen Alcohol, Quantitative - EKG Data EKG Interpreted by: ER Physician - EKG Data EKG comments: EKG Normal sinus rhythm possible IMI, age unknown NSSTW changes DSM Plan - DSM 5 DSM 5 Diagnosis: as per h/o schizoaffective disorder - Recommended/Plan of Treatment Treatment Recommendations and Plan of Treatment: Milieu/structure/supportive therapy Medical consult appreciated, consultation for discharge plan and social issues Med management Seroquel 50 mg twice a day was started for psychosis and mood stabilization Paxil will be not resumed because patient had history of noncompliance with the medication and Paxil has short half-life Prozac 10 mg daily for depression and anxiety Orthopedic consultation Family involvement Follow up on labs Will monitor closely Pt was educated about risk/benefits and alternatives of medications, coping strategies (safety plan, suicide prevention), relapse prevention, importance of follow up with psychiatrist and therapist, stay away from drugs/alcohol/smoking Projected ELOS: 7 days Prognosis: guarded Discharge Plan and Discharge Criteria: Pt will be not depressed or manic, will be more hopeful, will be not psychotic or anxious, will be not having thoughts of harming self or others, will be tolerating medications well, will not have major side effects, will be able to function, will not pose threat to self or others. - Tobacco Cessation Tobacco Use Status for the last 30 days: Non User Tobacco Use Treatment Practical Counseling Provided: No Tobacco Use Treatment FDA-Approved Cessation Medication Provided: No - Alcohol or Substance Abuse Does the patient have an Alcohol or Substance Abuse Disorder: No Initial Psych Certification - Initial Certification I certify that the inpatient psychiatric facility admission was medically necessary for either: Treatment which could reasonbly be expected to improve pt's condition, Diagnostic study I estimate of hospitalization is necessary for proper treatment of the patient: 7 Unit of Time: Days My plans for post-hospital care for this patient are: IOP DTP
--- NOTE | 2017-12-06 05:11 | CON ---
DATE: 12/05/2017 CHIEF COMPLAINT: Back pain and knee pain, cannot sleep. HISTORY OF PRESENT ILLNESS: Ms. Ioana Bucio is a 67 years old my private patient with history of anxiety and chronic left knee pain who was brought by EMS for psych evaluation. Patient said that she has been screaming and shutting down loudly. She reports auditory hallucinations. States that the voices are telling her to kill herself. She however denies suicidal ideation and reports insomnia for 14 days. States that she has not been taking her anxiolytic medications for a while now and her oxycodone. States that she changed her primary care physician. Her new PMD referred her to her therapist to get her anxiolytic. She denies homicidal ideation and any somatic complaints. Just complaining about cannot sleep at night, back pain, and knee pain. PAST MEDICAL HISTORY: Arthritis, back pain, insomnia, knee pain, anxiety, depression, and schizophrenia. FAMILY HISTORY: Father and mother, noncontributory. HABITS: Never smoked. No drugs. No ethanol. ALLERGIES: PATIENT IS ALLERGIC WITH MEDICATIONS: Seroquel, should be Xanax also. REVIEW OF SYSTEMS: Patient was seen and examined at the bedside in her room, complaining about back pain and knee pain. Cannot sleep at night. Seen by Dr. Car, Orthopaedic. PHYSICAL EXAMINATION: VITAL SIGNS: Temperature 97.2, pulse 86, blood pressure 101/75, and respiratory rate 20. HEENT: Head normocephalic and atraumatic. Eyes, PERRLA. Extraocular muscles intact. Conjunctivae clear. Nose patent. Mucous membrane moist. NECK: Supple. No carotid bruit. No JVD or thyromegaly. CHEST: Bilaterally symmetrical. HEART: S1 and S2 positive. LUNGS: Clear to auscultation. ABDOMEN: Soft. Bowel sounds present. No organomegaly. EXTREMITIES: No edema. No cyanosis. NEUROLOGIC: The patient is awake, alert, moving all four extremities. No focal deficit. MEDICATIONS: Were given Ativan, Geodon, Motrin, Prozac, and Seroquel. LABORATORY DATA: White blood cells 8.3, hemoglobin 11.2, hematocrit 34.8, platelets 319. Sodium 139 and potassium 5.0. BUN 22 and creatinine 0.8. Iron 18 and B12 less than 159. ASSESSMENT AND PLAN: Ms. Ioana Bucio is a 67 years old lady with anemia, iron deficiency, and B12 deficiency. TSH and cholesterol is within normal limits. Had Urinary tract infection, drug screening negative. Serology RPR is nonreactive. We admitted the patient. Josep consulted by Dr. Aga Delgadillo, he saw the patient, I appreciate. According to him, patient has to use NSAIDs, but I ordered x-rays of the knees, out of bed, physical therapy, gastrointestinal and deep vein thrombosis prophylaxis. Repeat labs. We will follow up. Sherin Morton MD MTDD
[2017-12-06 07:56] LABS: MEAN CELL VOLUME 84.7 fl (80.0-105.0); MEAN CORPUSCULAR HEMOGLOBIN 26.4 pg (25.0-35.0); MEAN CORPUSCULAR HGB CONC 31.2 g/dl (31.0-37.0); MEAN PLATELET VOLUME 10.3 fl (7.0-11.0); RBC 3.79 10^6/uL (3.5-6.1); RED CELL DISTRIBUTION WIDTH 15.2 % (11.5-14.5); WHITE BLOOD COUNT 5.5 10^3/uL (4.5-11.0)
[2017-12-06 08:08] LABS: BLOOD UREA NITROGEN 23 mg/dL (7-21); CALCIUM 8.5 mg/dL (8.4-10.5); GFR NON-AFRICAN AMERICAN > 60
[2017-12-06] MEDS: Iron Complex Polysacch 150mg Cap PO SCH (09:20)
--- NOTE | 2017-12-06 10:49 | RAD ---
Date of service: 12/05/2017 PROCEDURE: Bilateral Knee Radiographs. HISTORY: pain COMPARISON: Right knee radiographs 10/18/2017 and bilateral knee radiographs 03/28/2016. FINDINGS: BONES: No acute fracture dislocation is identified bilaterally or destructive bony lesion. Prior ORIF reiterated at the proximal left tibia with lateral compression plate and multiple screws in position once again. No interval change in the orthopedic hardware is appreciated in the interval. JOINTS: Joint space narrowing is reiterated at the right medial and patellofemoral joints as well as all 3 joints at the left knee including articular cortical sclerosis. Osteophyte development is seen at all 3 joint compartments bilaterally but greater the left and right. No subluxation or dislocation appreciable. SOFT TISSUES: Right Knee: Normal. Left Knee: Normal. JOINT EFFUSION: Right Knee: None. Left Knee: Trace suprapatellar bursa effusion identified. OTHER FINDINGS: None. IMPRESSION: Stable bicompartmental right knee osteoarthritis. Increased tricompartment osteoarthritis left knee. No acute fracture or dislocation identified. Prior proximal left tibial ORIF reiterated. Trace left suprapatellar bursa effusion noted.
--- NOTE | 2017-12-06 16:41 | PCM.PYCHPN ---
Psychiatric Progress Note - Psychiatric Progress Note Patient seen today, length of contact: 30min Patient Chief Complaint: "I was hearing male voices that time slot, I think they are right" Problems Identified/Issues Discussed: Suicide/ homicide prevention, past psychiatric h/o, current psychiatric symptoms, medical problems, risk/benefits and alternatives of medications, medications compliance, coping strategies, substance abuse h/o, relapse prevention, importance of follow up with psychiatrist and therapist, discharge plan. Medical Problems: chronic knee pain obesity Diagnostic Results: 12/06/17 07:40 12/06/17 07:40 Lab Results 12/06/17 07:40: TSH 3rd Generation 0.97 12/06/17 07:40: Sodium 139, Potassium 4.3, Chloride 107, Carbon Dioxide 27, Anion Gap 9 L, BUN 23 H, Creatinine 0.8, Est GFR ( Amer) > 60, Est GFR (Non-Af Amer) > 60, Random Glucose 92, Calcium 8.5 12/06/17 07:40: WBC 5.5 D, RBC 3.79, Hgb 10.0 L, Hct 32.1 L, MCV 84.7, MCH 26. 4, MCHC 31.2, RDW 15.2 H, Plt Count 289, MPV 10.3 12/05/17 07:40: Hemoglobin A1c 5.9 12/05/17 07:40: Iron 85, TIBC 461, % Saturation 18 L 12/05/17 07:40: Vitamin B12 < 159 L, Folate 11.6 12/05/17 07:40: RPR Nonreactive 12/05/17 07:40: Free T4 1.08, TSH 3rd Generation 1.69 12/05/17 07:40: Fasting Glucose 90, Triglycerides 92, Cholesterol 167, LDL Cholesterol Direct 90, HDL Cholesterol 58 12/04/17 14:35: Alcohol, Quantitative < 10 12/04/17 14:35: Salicylates < 1 L, Acetaminophen < 10.0 L 12/04/17 14:35: Sodium 139, Potassium 5.0, Chloride 104, Carbon Dioxide 26, Anion Gap 14, BUN 22 H, Creatinine 0.8, Est GFR ( Amer) > 60, Est GFR (Non-Af Amer) > 60, Random Glucose 105, Calcium 8.6, Magnesium 2.0, Total Bilirubin 0.7, AST 24, ALT 29, Alkaline Phosphatase 90, Total Protein 7.3, Albumin 4.1, Globulin 3.2, Albumin/Globulin Ratio 1.3 12/04/17 14:35: WBC 8.2, RBC 4.15, Hgb 11.2 L, Hct 34.8 L, MCV 83.9, MCH 27.0, MCHC 32.2, RDW 14.9 H, Plt Count 319, MPV 10.8, Gran % 68.7 H, Lymph % (Auto) 22.7, [place] % (Auto) 7.4 H, Eos % (Auto) 1.1 L, Baso % (Auto) 0.1, Gran # 5.64, Lymph # (Auto) 1.9, [place] # (Auto) 0.6, Eos # (Auto) 0.1, Baso # (Auto) 0.01 12/04/17 13:55: Urine Opiates Screen Negative, Urine Methadone Screen Negative, Ur Barbiturates Screen Negative, Ur Phencyclidine Scrn Negative, Ur Amphetamines Screen Negative, U Benzodiazepines Scrn Negative, U Oth Cocaine Metabols Negative, U Cannabinoids Screen Negative 12/04/17 13:55: Urine Color Yellow, Urine Appearance Clear, Urine pH 6.0, Ur Specific [place] 1.025, Urine Protein Negative, Urine Glucose (UA) Negative, Urine Ketones Negative, Urine Blood Negative, Urine Nitrate Negative, Urine Bilirubin Negative, Urine Urobilinogen 0.2, Ur Leukocyte Esterase Moderate H, Urine RBC 0 - 2, Urine WBC 10 - 15, Ur Epithelial Cells 1 - 3, Urine Bacteria Small DSM 5 Symptoms Update: shortly patient is 67yo female with pmhx of psychosis, most likely schizoaffective disorder, at least 3 previous psychiatric admissions 2016, 2017, multiple medical issues including chronic left knee pain, patient was brought in by EMS for evaluation of psychotic symptoms, patient presented to be disorganized, responding to internal stimuli, psychotic, depressed, possible suicidal ideation, obviously patient requires further evaluation and stabilization in acute psychiatric inpatient unit. pt was seen at the treatment team meeting, patient presented with poor personal hygiene, malodorous, smells like urine and sweat, poor ADLs. pt c/o "male voices, I know that I am a slut", pt has poor coping, followed what voices were telling to to do, pt tried to poison self with cleaning solution a bout a week ago and did not tell anyone. pt reported to feel "very depressed", reported to feel safe in the unit. pt is very pleasant but at the same time very ill. pt tolerates meds well, no side effects observed or reported, willing to increase dose of seroquel. AIMS 0, no EPS. pt concerned about her cat at home, YARI made a phone call to pt's friend. as per staff pt is compliant with meds, no agitation, no aggression, but pt is disorganized, psychotic. Impression: schizoaffective disorder. Medication Change: Yes (seroquel 100mg po bid, prozac increased) Medical Record Reviewed: Yes Consults ordered or reviewed: medical consult Mental Status Examination - Cognitive Function Orientation: Person, Place, Situation Memory: Impaired Attention: Poor Concentration: Poor Association: Loose Fund of Knowledge: WNL - Mood Mood: Depressed - Affect Affect: Flat - Formal Thought Process Formal Thought Process: Hallucinations, Delusions, Paranoia, Loosening of associations, Circumstantial - Suicidal Ideation Suicidal Ideation: No - Homicidal Ideation Homicidal Ideation: No Goal/Treatment Plan - Goal/Treatment Plan Need for Continued Stay: Remain at risks for inpatient hospitalization, Severe depression anxiety, Discharge may exacerbated symptoms, Severe functional impairment Progress Toward Problem(s) and Goals/Treatment Plan: Milieu/structure/supportive therapy Medical consult appreciated, Dr.Akhtar GREENBERG consultation for discharge plan and social issues Med management Seroquel 100 mg twice a day was started for psychosis and mood stabilization Prozac 20 mg daily for depression and anxiety Orthopedic consultation Family involvement Follow up on labs Will monitor closely Pt was educated about risk/benefits and alternatives of medications, coping strategies (safety plan, suicide prevention), relapse prevention, importance of follow up with psychiatrist and therapist, stay away from drugs/alcohol/smoking Estimated Date of D/C: 12/13/17
--- NOTE | 2017-12-06 23:08 | PN ---
DATE: 12/06/2017 SUBJECTIVE: The patient was seen and examined on the bedside on 12/06/2017, looking comfortable. Just complaining about legs pain. No nausea, vomiting or diarrhea. No hematuria or hematochezia. No swelling of the legs. No chest pain. No palpitation. No headache. No dizziness. PHYSICAL EXAMINATION: VITAL SIGNS: Temperature 97.9, pulse 75, blood pressure 118/75, respiratory rate 16. HEENT: Head normocephalic, atraumatic. Eyes PERRLA. Extraocular muscles intact. Conjunctivae clear. Nose patent. Mucous membrane moist. NECK: Supple. No carotid bruit. No JVD or thyromegaly. CHEST: Bilaterally symmetrical. HEART: S1 and S2 positive. LUNGS: Clear to auscultation. ABDOMEN: Soft. Bowel sounds positive. No organomegaly. EXTREMITIES: No edema. No cyanosis. NEUROLOGICAL: The patient is awake and alert. Moving all 4 extremities. No focal deficits. MEDICATIONS: Ativan, Bactrim, polysaccharide iron complex, Geodon, ibuprofen, Prozac, Seroquel. LABORATORY DATA: White blood cells 5.5, hemoglobin 10, hematocrit 32.1, platelets 289. Sodium 139, potassium 4.3, BUN 23, creatinine 0.8, iron saturation 18, vitamin B12 less than 159. ASSESSMENT AND PLAN: Ms. Ioana Bucio, 67-year-old lady with severe anemia, iron deficiency, vitamin B deficiency, urinary tract infection, started on Bactrim. Drug screen is negative. RPR nonreactive. Getting supplement of iron, Seroquel. Need B12 injection. B12 is very low. History of depression and anxiety, degenerative joint disease. Both knee x-rays done showed stable bicompartmental right knee osteoarthritis, increased tricompartmental osteoarthritis of left knee. No acute fracture or dislocation identified. Upon examination of left tibia, Trace left suprapatellar bursa effusion noted. Orthopedic, Dr. Car is on the case. Gastrointestinal, deep venous thrombosis prophylaxis. Repeat labs. We will follow up. Sherin Morton MD [facility]
[2017-12-07] MEDS: Iron Complex Polysacch 150mg Cap PO SCH (08:17)
[2017-12-07] MEDS: Tmp-Smz 800 mg-160 mg DS Tab PO SCH ×2 (08:17→16:36)
--- NOTE | 2017-12-07 10:47 | PCM.PYCHPN ---
Psychiatric Progress Note - Psychiatric Progress Note Patient seen today, length of contact: 30min Problems Identified/Issues Discussed: I reviewed assessment and recent notes. I met with patient at bedside. She appears fairly kempt and friendly. Responses are superficial and relevant to questioning. Patient reports that "everything is okay so far" and denies any new concerns. She also denies experiencing any hallucinations though treatment team notes indicate that she admitted to having them ["male voices, I know I am a slut"]. She seems preoccupied and oddly related but not actively responding to internal stimuli at my visit. She also denies any paranoid thoughts. Patient has been compliant with medications and denies any new side effects, pain or discomfort. She has been calm and pleasant on the unit. Reports hat she is improving and staff notes that she appears a little brighter. There were no behavioral issues overnight, Diagnostic Results: as per h/o schizoaffective disorder Medication Change: Yes (seroquel 100mg po bid, prozac increased) Medical Record Reviewed: Yes Mental Status Examination - Cognitive Function Orientation: Person, Place, Situation Memory: Impaired Attention: Poor Concentration: Poor Association: Loose Fund of Knowledge: WNL - Mood Mood: Depressed - Affect Affect: Flat - Formal Thought Process Formal Thought Process: Hallucinations, Delusions, Paranoia, Loosening of associations, Circumstantial - Suicidal Ideation Suicidal Ideation: No - Homicidal Ideation Homicidal Ideation: No Goal/Treatment Plan - Goal/Treatment Plan Need for Continued Stay: Remain at risks for inpatient hospitalization, Severe depression anxiety, Discharge may exacerbated symptoms, Severe functional impairment Progress Toward Problem(s) and Goals/Treatment Plan: * c/w current treatment and plan * Vitals reviewed and noted below: Selected Entries 12/06/17 12/06/17 07:13 16:41 Temperature 97.9 F Pulse Rate 65 75 Respiratory 16 Rate Blood Pressure 97/52 L 118/71 * No new weekend lab results noted thus far. Estimated Date of D/C: 12/13/17
--- NOTE | 2017-12-08 00:45 | PN ---
DATE: 12/07/2017 SUBJECTIVE: The patient was seen and examined on the bedside on 12/07/2017, looking comfortable. Sleepy, arousable, moving all 4 extremities. No focal deficits. No fever. No chills. PHYSICAL EXAMINATION: VITAL SIGNS: Temperature 97.3, pulse 67, blood pressure 117/69, respiratory rate 20. HEENT: Head normocephalic, atraumatic. Eyes PERRLA. Extraocular muscles intact. Conjunctivae clear. Nose patent. Mucous membrane moist. NECK: Supple. No carotid bruit. No JVD or thyromegaly. CHEST: Bilaterally symmetrical. HEART: S1 and S2 positive. LUNGS: Clear to auscultation. ABDOMEN: Soft. Bowel sounds positive. No organomegaly. EXTREMITIES: No edema. No cyanosis. NEUROLOGICAL: The patient is awake and alert. Moving all 4 extremities. No focal deficits. MEDICATIONS: Ativan, Ferrex, Geodon, ibuprofen, Prozac, Seroquel. LABORATORY DATA: White blood cells 5.5, hemoglobin 10, hematocrit 32.1, platelets 289. Sodium 139, potassium 4.3, BUN 23, creatinine 0.8, glucose 92. ASSESSMENT AND PLAN: Ms. Ioana Bucio is a 67-year-old lady with anemia, B12 deficiency, increased BUN, iron deficiency, urinary tract infection, getting antibiotics. Drug screen is negative. Serology is negative. Complaining about bilateral knee pain. Seen by Dr. Car, is under the care of Dr. Leona Yung. History of obesity, hypertension and degenerative joint disease. Getting iron supplement, Seroquel, B12 injections. Both knee x-rays shows bicompartmental right knee osteoarthritis, increased tricompartmental osteoarthritis of the left knee. No acute fracture or dislocation identified. Gastrointestinal, deep venous thrombosis prophylaxis. Repeat labs. Appreciated consult and appreciated Dr. Leona Yung's input. We will follow up. Sherin Morton MD
[2017-12-08] MEDS: Tmp-Smz 800 mg-160 mg DS Tab PO SCH ×2 (08:09→17:39)
[2017-12-08] MEDS: Iron Complex Polysacch 150mg Cap PO SCH (08:10)
--- NOTE | 2017-12-08 10:29 | PCM.PYCHPN ---
Psychiatric Progress Note - Psychiatric Progress Note Patient seen today, length of contact: 30min Problems Identified/Issues Discussed: I reviewed recent notes and met with patient at bedside. She remains friendly and oriented to month, year and location. Patient continues to report that "ever ything is okay so far" but admits to periods of depression and hallucinations. On Saturday patient complained of hearing voices telling her that someone is going to hurt her and people around her. She received po Geodon PRN with good effect. Currently denies any hallucinations and denies having any suicidal thoughts over the weekend. Responses remain superficial and relevant to questioning. She seems preoccupied and oddly related but not actively responding to internal stimuli at my visit. She also denies any paranoid thoughts. Patient has been compliant with medications and denies any new side effects, pain or discomfort. She has been calm and pleasant on the unit. Reports that she is improving and staff notes that she appears a little brighter. There were no behavioral issues over the weekend. Diagnostic Results: as per h/o schizoaffective disorder Medication Change: Yes (seroquel 100mg po bid, prozac increased) Medical Record Reviewed: Yes Mental Status Examination - Cognitive Function Orientation: Person, Place, Situation Memory: Impaired Attention: Poor Concentration: Poor Association: Loose Fund of Knowledge: WNL - Mood Mood: Depressed - Affect Affect: Flat (friendly seems a little brighter) - Formal Thought Process Formal Thought Process: Hallucinations (intermittent over the weekend), Delusions, Paranoia, Loosening of associations, Circumstantial - Suicidal Ideation Suicidal Ideation: No - Homicidal Ideation Homicidal Ideation: No Goal/Treatment Plan - Goal/Treatment Plan Need for Continued Stay: Remain at risks for inpatient hospitalization, Severe depression anxiety, Discharge may exacerbated symptoms, Severe functional imp airment Progress Toward Problem(s) and Goals/Treatment Plan: * c/w current treatment and plan * Appreciate Dr. Morton's f/u on 12/08/17~to repeat labs * Vitals reviewed and noted below: Selected Entries 12/07/17 12/07/17 07:17 16:00 Temperature 97.3 F L Pulse Rate 70 67 Respiratory 20 Rate Blood Pressure 119/76 117/69 * No new weekend lab results noted thus far. Estimated Date of D/C: 12/13/17
--- NOTE | 2017-12-09 00:28 | PN ---
DATE: 12/08/2017 SUBJECTIVE: The patient is a 67-year-old female. The patient was seen and examined on the bedside on 12/08/2017, looking comfortable. No nausea, vomiting, diarrhea. No hematuria or hematochezia. No swelling of the leg. No chest pain. No palpitation. No headache. No dizziness. No fever. No chills. No shortness of breath. PHYSICAL EXAMINATION: VITAL SIGNS: Temperature 97.7, pulse 80, blood pressure 108/74, respiratory rate 20. HEENT: Head normocephalic, atraumatic. Eyes PERRLA. Extraocular muscles intact. Conjunctivae clear. Nose patent. NECK: Supple. No carotid bruit. No JVD or thyromegaly. CHEST: Bilaterally symmetrical. HEART: S1 and S2 positive. LUNGS: Clear to auscultation. ABDOMEN: Soft. Bowel sounds positive. No organomegaly. EXTREMITIES: No edema. No cyanosis. NEUROLOGICAL: The patient is awake and alert. Moving all 4 extremities. No focal deficits. MEDICATIONS: Ativan, Bactrim, iron, Geodon, metformin, fluoxetine, and Seroquel. LABORATORY DATA: We do not have recent labs today. I reviewed old labs. ASSESSMENT AND PLAN: Ms. Ioana Bucio is a 67-year-old lady with anemia, iron deficiency, B12 deficiency, getting replacement; urinary tract infections, getting Bactrim. Seen by the psychiatrist, Dr. Marina Arguelles. Has history of depression. The patient was admitted with hallucinations. Now, no hallucinations, no suicidal thoughts. According to the patient, she is compliant with the medications. History of schizoaffective disorder, history of degenerative joint disease, obesity. Continue present treatment. Repeat labs. We will follow up. Sherin Morton MD [facility]
[2017-12-09] MEDS: Tmp-Smz 800 mg-160 mg DS Tab PO SCH ×2 (10:13→15:27)
[2017-12-09] MEDS: Iron Complex Polysacch 150mg Cap PO SCH (10:14)
--- NOTE | 2017-12-09 16:44 | PCM.PYCHPN ---
Psychiatric Progress Note - Psychiatric Progress Note Patient seen today, length of contact: 30min Patient Chief Complaint: "I did not hear any voices over the weekend" Problems Identified/Issues Discussed: Suicide/ homicide prevention, past psychiatric h/o, current psychiatric symptoms, medical problems, risk/benefits and alternatives of medications, medications compliance, coping strategies, substance abuse h/o, relapse prevention, importance of follow up with psychiatrist and therapist, discharge plan. Medical Problems: chronic knee pain obesity Diagnostic Results: 12/06/17 07:40 12/06/17 07:40 Lab Results 12/06/17 07:40: TSH 3rd Generation 0.97 12/06/17 07:40: Sodium 139, Potassium 4.3, Chloride 107, Carbon Dioxide 27, Anion Gap 9 L, BUN 23 H, Creatinine 0.8, Est GFR ( Amer) > 60, Est GFR (Non-Af Amer) > 60, Random Glucose 92, Calcium 8.5 12/06/17 07:40: WBC 5.5 D, RBC 3.79, Hgb 10.0 L, Hct 32.1 L, MCV 84.7, MCH 26.4, MCHC 31.2, RDW 15.2 H, Plt Count 289, MPV 10.3 12/05/17 07:40: Hemoglobin A1c 5.9 12/05/17 07:40: Iron 85, TIBC 461, % Saturation 18 L 12/05/17 07:40: Vitamin B12 < 159 L, Folate 11.6 12/05/17 07:40: RPR Nonreactive 12/05/17 07:40: Free T4 1.08, TSH 3rd Generation 1.69 12/05/17 07:40: Fasting Glucose 90, Triglycerides 92, Cholesterol 167, LDL Cholesterol Direct 90, HDL Cholesterol 58 12/04/17 14:35: Alcohol, Quantitative < 10 12/04/17 14:35: Salicylates < 1 L, Acetaminophen < 10.0 L 12/04/17 14:35: Sodium 139, Potassium 5.0, Chloride 104, Carbon Dioxide 26, Anion Gap 14, BUN 22 H, Creatinine 0.8, Est GFR ( Amer) > 60, Est GFR (No n-Af Amer) > 60, Random Glucose 105, Calcium 8.6, Magnesium 2.0, Total Bilirubin 0.7, AST 24, ALT 29, Alkaline Phosphatase 90, Total Protein 7.3, Albumin 4.1, Globulin 3.2, Albumin/Globulin Ratio 1.3 12/04/17 14:35: WBC 8.2, RBC 4.15, Hgb 11.2 L, Hct 34.8 L, MCV 83.9, MCH 27.0, MCHC 32.2, RDW 14.9 H, Plt Count 319, MPV 10.8, Gran % 68.7 H, Lymph % (Auto) 22.7, [place] % (Auto) 7.4 H, Eos % (Auto) 1.1 L, Baso % (Auto) 0.1, Gran # 5.64, Lymph # (Auto) 1.9, [place] # (Auto) 0.6, Eos # (Auto) 0.1, Baso # (Auto) 0.01 12/04/17 13:55: Urine Opiates Screen Negative, Urine Methadone Screen Negative, Ur Barbiturates Screen Negative, Ur Phencyclidine Scrn Negative, Ur Amphetamines Screen Negative, U Benzodiazepines Scrn Negative, U Oth Cocaine Metabols Negative, U Cannabinoids Screen Negative 12/04/17 13:55: Urine Color Yellow, Urine Appearance Clear, Urine pH 6.0, Ur Specific [place] 1.025, Urine Protein Negative, Urine Glucose (UA) Negative, Urine Ketones Negative, Urine Blood Negative, Urine Nitrate Negative, Urine Bilirubin Negative, Urine Urobilinogen 0.2, Ur Leukocyte Esterase Moderate H, Urine RBC 0 - 2, Urine WBC 10 - 15, Ur Epithelial Cells 1 - 3, Urine Bacteria Small DSM 5 Symptoms Update: shortly patient is 67yo female with pmhx of psychosis, most likely schizoaffective disorder, at least 3 previous psychiatric admissions 2016, 2017, multiple medical issues including chronic left knee pain, patient was brought in by EMS for evaluation of psychotic symptoms, patient presented to be disorganized, responding to internal stimuli, psychotic, depressed, possible suicidal ideation, obviously patient requires further evaluation and stabilization in acute psychiatric inpatient unit. pt was seen in her room, patient presented with some improvement with her hygiene. she reported that she feels little bit better, concerns about her cat at home. she reports that she tolerates medications well, patient reported that she is not hearing voices were not seeing things, but at the same time patient presented to be mildly psychotic at times internally preoccupied. pt reported to feel "less depressed", reported to feel safe in the unit. pt tolerates meds well, no side effects observed or reported, willing to increase dose of seroquel. AIMS 0, no EPS. aas per staff there is no agitation, no aggression, patient pleasant and corporative. Impression: schizoaffective disorder. Medication Change: Yes (seroquel 150mg po bid, prozac increased) Medical Record Reviewed: Yes Mental Status Examination - Cognitive Function Orientation: Person, Place, Situation Memory: Impaired Attention: Poor Concentration: Poor Association: Loose Fund of Knowledge: WNL - Mood Mood: Depressed - Affect Affect: Flat (friendly seems a little brighter) - Formal Thought Process Formal Thought Process: Hallucinations (intermittent over the weekend), Delusions, Paranoia, Loosening of associations, Circumstantial - Suicidal Ideation Suicidal Ideation: No - Homicidal Ideation Homicidal Ideation: No Goal/Treatment Plan - Goal/Treatment Plan Need for Continued Stay: Remain at risks for inpatient hospitalization, Severe depression anxiety, Discharge may exacerbated symptoms, Severe functional impairment Progress Toward Problem(s) and Goals/Treatment Plan: Milieu/structure/supportive therapy Medical consult appreciated, SW consultation for discharge plan and social issues Med management Seroquel 150 mg twice a day was started for psychosis and mood stabilization Prozac 30 mg daily for depression and anxiety Orthopedic consultation Family involvement Follow up on labs Will monitor closely Pt was educated about risk/benefits and alternatives of medications, coping strategies (safety plan, suicide prevention), relapse prevention, importance of follow up with psychiatrist and therapist, stay away from drugs/alcohol/smoking Estimated Date of D/C: 12/13/17
--- NOTE | 2017-12-10 05:10 | PN ---
DATE: 12/09/2017 SUBJECTIVE: The patient was seen and examined on the bedside on 12/09/2017 and looking comfortable. According to the patient, she is not having more hallucinations or delusions, but knees are still hurting her. No fever. No chills. No nausea or vomiting. No hematuria or hematochezia. No headache or dizziness. No chest pain or palpitation. PHYSICAL EXAMINATION: VITAL SIGNS: Temperature 97.7, pulse 90, blood pressure 112/58 and respiratory rate 20. HEENT: Head; normocephalic and atraumatic. Eyes; PERRLA. Extraocular muscles intact. Conjunctivae clear. Nose patent. Mucous membrane moist. NECK: Supple. No carotid bruit. No JVD or thyromegaly. CHEST: Bilaterally symmetrical. HEART: S1 and S2 positive. LUNGS: Clear to auscultation. ABDOMEN: Soft. Bowel sounds + , No organomegaly. EXTREMITIES: No edema. No cyanosis. NEUROLOGICAL: The patient is awake and alert. Moving all 4 extremities. No focal deficits. MEDICATIONS: Ativan, Bactrim, ferrous sulfate, Geodon, Motrin and fluoxetine. LABORATORY DATA: We don't have recent labs today, but I reviewed old labs. ASSESSMENT AND PLAN: Ms. Ioana Bucio 67 years old lady who has anemia, iron deficiency, B12 deficiency, urinary tract infection, got antibiotics. Seen by Dr. Leona Yung, psychiatrist. History of degenerative joint disease, obesity, and chronic knee pain. Getting psych medications. History of psychosis, schizoaffective disorder, possibly suicidal ideation by history, the patient stabilized, getting better. Gastrointestinal and deep venous thrombosis prophylaxis. Repeat labs. We will follow up. Sherin Morton MD [facility]
[2017-12-10] MEDS: Iron Complex Polysacch 150mg Cap PO SCH (09:30)
[2017-12-10] MEDS: Tmp-Smz 800 mg-160 mg DS Tab PO SCH (09:48)
--- NOTE | 2017-12-10 15:11 | PCM.PYCHPN ---
Psychiatric Progress Note - Psychiatric Progress Note Patient seen today, length of contact: 30min Patient Chief Complaint: "I was very anxious, I was crying all night long, I want to get better, I hear voices, my brain does not work properly" Problems Identified/Issues Discussed: Suicide/ homicide prevention, past psychiatric h/o, current psychiatric symptoms, medical problems, risk/benefits and alternatives of medications, medications compliance, coping strategies, substance abuse h/o, relapse prevention, importance of follow up with psychiatrist and therapist, discharge plan. Medical Problems: chronic knee pain obesity Diagnostic Results: 12/06/17 07:40 12/06/17 07:40 Lab Results 12/06/17 07:40: TSH 3rd Generation 0.97 12/06/17 07:40: Sodium 139, Potassium 4.3, Chloride 107, Carbon Dioxide 27, Anion Gap 9 L, BUN 23 H, Creatinine 0.8, Est GFR ( Amer) > 60, Est GFR (Non-Af Amer) > 60, Random Glucose 92, Calcium 8.5 12/06/17 07:40: WBC 5.5 D, RBC 3.79, Hgb 10.0 L, Hct 32.1 L, MCV 84.7, MCH 26.4, MCHC 31.2, RDW 15.2 H, Plt Count 289, MPV 10.3 12/05/17 07:40: Hemoglobin A1c 5.9 12/05/17 07:40: Iron 85, TIBC 461, % Saturation 18 L 12/05/17 07:40: Vitamin B12 < 159 L, Folate 11.6 12/05/17 07:40: RPR Nonreactive 12/05/17 07:40: Free T4 1.08, TSH 3rd Generation 1.69 12/05/17 07:40: Fasting Glucose 90, Triglycerides 92, Cholesterol 167, LDL Cholesterol Direct 90, HDL Cholesterol 58 12/04/17 14:35: Alcohol, Quantitative < 10 12/04/17 14:35: Salicylates < 1 L, Acetaminophen < 10.0 L 12/04/17 14:35: Sodium 139, Potassium 5.0, Chloride 104, Carbon Dioxide 26, Anion Gap 14, BUN 22 H, Creatinine 0.8, Est GFR ( Amer) > 60, Est GFR (Non-Af Amer) > 60, Random Glucose 105, Calcium 8.6, Magnesium 2.0, Total Bilirubin 0.7, AST 24, ALT 29, Alkaline Phosphatase 90, Total Protein 7.3, Albumin 4.1, Globulin 3.2, Albumin/Globulin Ratio 1.3 12/04/17 14:35: WBC 8.2, RBC 4.15, Hgb 11.2 L, Hct 34.8 L, MCV 83.9, MCH 27.0, MCHC 32.2, RDW 14.9 H, Plt Count 319, MPV 10.8, Gran % 68.7 H, Lymph % (Auto) 22.7, [place] % (Auto) 7.4 H, Eos % (Auto) 1.1 L, Baso % (Auto) 0.1, Gran # 5.64, Lymph # (Auto) 1.9, [place] # (Auto) 0.6, Eos # (Auto) 0.1, Baso # (Auto) 0.01 12/04/17 13:55: Urine Opiates Screen Negative, Urine Methadone Screen Negative, Ur Barbiturates Screen Negative, Ur Phencyclidine Scrn Negative, Ur Amphetamines Screen Negative, U Benzodiazepines Scrn Negative, U Oth Cocaine Metabols Negative, U Cannabinoids Screen Negative 12/04/17 13:55: Urine Color Yellow, Urine Appearance Clear, Urine pH 6.0, Ur Specific [place] 1.025, Urine Protein Negative, Urine Glucose (UA) Negative, Urine Ketones Negative, Urine Blood Negative, Urine Nitrate Negative, Urine Bilirubin Negative, Urine Urobilinogen 0.2, Ur Leukocyte Esterase Moderate H, Urine RBC 0 - 2, Urine WBC 10 - 15, Ur Epithelial Cells 1 - 3, Urine Bacteria Sm all Temp Pulse Resp BP Pulse Ox 97.4 F L 66 20 101/60 97 12/10/17 07:25 12/10/17 07:25 12/10/17 07:25 12/10/17 07:25 12/04/17 17:20 DSM 5 Symptoms Update: shortly patient is 67yo female with pmhx of psychosis, most likely schizoaffective disorder, at least 3 previous psychiatric admissions 2015, 2017, multiple medical issues including chronic left knee pain, patient was brought in by EMS for evaluation of psychotic symptoms, patient presented to be disorganized, responding to internal stimuli, psychotic, depressed, possible suicidal ideation, obviously patient requires further evaluation and stabilization in acute psychiatric inpatient unit. pt was seen next to the nursing station, pt presented to be anxious, saying that she is not feeling right "my brain does not work properly, I was very scared last night". added xanax. as per RN report patient presented to be psychotic at times internally preoccupied, did not sleep last night, required Geodon PRN over night. pt tolerates meds well, no side effects observed or reported, AIMS 0, no EPS. as per staff there is no agitation, no aggression, patient pleasant and corporative. Impression: schizoaffective disorder. Medication Change: Yes (xanax added) Medical Record Reviewed: Yes Mental Status Examination - Cognitive Function Orientation: Person, Place, Situation Memory: Impaired Attention: Poor Concentration: Poor Association: Loose Fund of Knowledge: WNL - Mood Mood: Depressed - Affect Affect: Flat (friendly seems a little brighter) - Formal Thought Process Formal Thought Process: Hallucinations (c/o hallucinations voices calling her "slut"), Delusions, Paranoia, Loosening of associations, Circumstantial - Suicidal Ideation Suicidal Ideation: No - Homicidal Ideation Homicidal Ideation: No Goal/Treatment Plan - Goal/Treatment Plan Need for Continued Stay: Remain at risks for inpatient hospitalization, Severe depression anxiety, Discharge may exacerbated symptoms, Severe functional impairment Progress Toward Problem(s) and Goals/Treatment Plan: Milieu/structure/supportive therapy Medical consult appreciated, consultation for discharge plan and social issues Med management Seroquel 150 mg twice a day was started for psychosis and mood stabilization Prozac 30 mg daily for depression and anxiety xanax 0.25mg po bid and hs for anxiety Orthopedic consultation Family involvement Follow up on labs Will monitor closely Pt was educated about risk/benefits and alternatives of medications, coping strategies (safety plan, suicide prevention), relapse prevention, importance of follow up with psychiatrist and therapist, stay away from drugs/alcohol/smoking Estimated Date of D/C: 12/13/17
--- NOTE | 2017-12-11 00:56 | PN ---
DATE: 12/10/2017 SUBJECTIVE: The patient was seen and examined on the bedside on 12/10/2017. Looking comfortable. No nausea, vomiting, diarrhea. No hematuria. No hematochezia. No swelling of the legs. No chest pain. No palpitation. Today, first time I saw her sitting in the activity room and playing different games with the friends. PHYSICAL EXAMINATION: VITAL SIGNS: Temperature 97.4, pulse 97, blood pressure 110/68, respiratory rate 20. HEENT: Head normocephalic, atraumatic. Eyes PERRLA. Extraocular muscles intact. Conjunctivae clear. Nose patent. Mucous membrane moist. NECK: Supple. No carotid bruit. No JVD or thyromegaly. CHEST: Bilaterally symmetrical. HEART: S1 and S2 positive. LUNGS: Clear to auscultation. ABDOMEN: Soft. Bowel sounds positive. No organomegaly. EXTREMITIES: No edema. No cyanosis. NEUROLOGICAL: The patient is awake and alert. Moving all 4 extremities. No focal deficits. MEDICATIONS: Ativan, ferrous, Geodon, Motrin, Prozac, Xanax. LABORATORY DATA: White blood cells 5.5, hemoglobin 10, hematocrit 32.1, platelets 289. Sodium 139, potassium 4.3, BUN 23, creatinine 0.8, hemoglobin A1c 5.9, calcium 8.5, iron saturation 18, B12 less than 159. ASSESSMENT AND PLAN: Ms. Ioana Bucio, 67-year-old lady with anemia, iron deficiency, vitamin B12 deficiency, urinary tract infection, got antibiotics. Seen by Dr. Leona Yung. Up now, the patient is still anxious and as per the patient, she was crying all night and she said she want to get better, but her brain was not going in proper direction. The patient has chronic knee pain, obesity, history of psychosis, schizoaffective disorders, had 3 previous psychiatric admissions. The patient was brought to the emergency room with psychotic symptoms, responding to internal stimuli, psychotic, depression, possible suicidal ideation. The patient needs further treatment for stabilization in acute psychiatric inpatient unit that is why she is there. Repeat labs. Gastrointestinal, deep venous thrombosis prophylaxis. We will follow up. Sherin Morton MD MTDD
[2017-12-11] MEDS: Iron Complex Polysacch 150mg Cap PO SCH (09:23)
--- NOTE | 2017-12-11 14:33 | PCM.PYCHPN ---
Psychiatric Progress Note - Psychiatric Progress Note Patient seen today, length of contact: 30min Patient Chief Complaint: "I heard voices, do not do this, do not do that, but overall I feel little better" Problems Identified/Issues Discussed: Suicide/ homicide prevention, past psychiatric h/o, current psychiatric symptoms, medical problems, risk/benefits and alternatives of medications, medications compliance, coping strategies, substance abuse h/o, relapse prevention, importance of follow up with psychiatrist and therapist, discharge plan. Medical Problems: chronic knee pain, complaint today, will increase ibuprofen 400mg po bid obesity Diagnostic Results: 12/06/17 07:40 12/06/17 07:40 Lab Results 12/06/17 07:40: TSH 3rd Generation 0.97 12/06/17 07:40: Sodium 139, Potassium 4.3, Chloride 107, Carbon Dioxide 27, Anion Gap 9 L, BUN 23 H, Creatinine 0.8, Est GFR ( Amer) > 60, Est GFR (Non-Af Amer) > 60, Random Glucose 92, Calcium 8.5 12/06/17 07:40: WBC 5.5 D, RBC 3.79, Hgb 10.0 L, Hct 32.1 L, MCV 84.7, MCH 26.4, MCHC 31.2, RDW 15.2 H, Plt Count 289, MPV 10.3 12/05/17 07:40: Hemoglobin A1c 5.9 12/05/17 07:40: Iron 85, TIBC 461, % Saturation 18 L 12/05/17 07:40: Vitamin B12 < 159 L, Folate 11.6 12/05/17 07:40: RPR Nonreactive 12/05/17 07:40: Free T4 1.08, TSH 3rd Generation 1.69 12/05/17 07:40: Fasting Glucose 90, Triglycerides 92, Cholesterol 167, LDL [place] sterol Direct 90, HDL Cholesterol 58 12/04/17 14:35: Alcohol, Quantitative < 10 12/04/17 14:35: Salicylates < 1 L, Acetaminophen < 10.0 L 12/04/17 14:35: Sodium 139, Potassium 5.0, Chloride 104, Carbon Dioxide 26, Anion Gap 14, BUN 22 H, Creatinine 0.8, Est GFR ( Amer) > 60, Est GFR (Non-Af Amer) > 60, Random Glucose 105, Calcium 8.6, Magnesium 2.0, Total Bilirubin 0.7, AST 24, ALT 29, Alkaline Phosphatase 90, Total Protein 7.3, Albumin 4.1, Globulin 3.2, Albumin/Globulin Ratio 1.3 12/04/17 14:35: WBC 8.2, RBC 4.15, Hgb 11.2 L, Hct 34.8 L, MCV 83.9, MCH 27.0, MCHC 32.2, RDW 14.9 H, Plt Count 319, MPV 10.8, Gran % 68.7 H, Lymph % (Auto) 22.7, [place] % (Auto) 7.4 H, Eos % (Auto) 1.1 L, Baso % (Auto) 0.1, Gran # 5.64, Lymph # (Auto) 1.9, [place] # (Auto) 0.6, Eos # (Auto) 0.1, Baso # (Auto) 0.01 12/04/17 13:55: Urine Opiates Screen Negative, Urine Methadone Screen Negative, Ur Barbiturates Screen Negative, Ur Phencyclidine Scrn Negative, Ur Amphetamines Screen Negative, U Benzodiazepines Scrn Negative, U Oth Cocaine Metabols Negative, U Cannabinoids Screen Negative 12/04/17 13:55: Urine Color Yellow, Urine Appearance Clear, Urine pH 6.0, Ur Specific [place] 1.025, Urine Protein Negative, Urine Glucose (UA) Negative, Urine Ketones Negative, Urine Blood Negative, Urine Nitrate Negative, Urine Bilirubin Negative, Urine Urobilinogen 0.2, Ur Leukocyte Esterase Moderate H, Urine RBC 0 - 2, Urine WBC 10 - 15, Ur Epithelial Cells 1 - 3, Urine Bacteria Small Temp Pulse Resp BP Pulse Ox 97.4 F L 66 20 101/60 97 12/10/17 07:25 12/10/17 07:25 12/10/17 07:25 12/10/17 07:25 12/04/17 17:20 DSM 5 Symptoms Update: shortly patient is 67yo female with pmhx of psychosis, most likely schiz oaffective disorder, at least 3 previous psychiatric admissions 2015, 2017, multiple medical issues including chronic left knee pain, patient was brought in by EMS for evaluation of psychotic symptoms, patient presented to be disorganized, responding to internal stimuli, psychotic, depressed, possible suicidal ideation, obviously patient requires further evaluation and stabilization in acute psychiatric inpatient unit. pt was seen next to the nursing station, pt presented to be less anxious, poor hygiene, pt said that she hears voices "do not do this, do not do that", pt reported with meds voices are less intense, but still bothering. patient presented to be psychotic at times internally preoccupied, slept little better. pt tolerates meds well, no side effects observed or reported, AIMS 0, no EPS. as per staff there is no agitation, no aggression, patient pleasant and corporative. Impression: schizoaffective disorder. Medication Change: Yes (Seroquel increased) Medical Record Reviewed: Yes Consults ordered or reviewed: medical consult Mental Status Examination - Cognitive Function Orientation: Person, Place, Situation Memory: Impaired Attention: Poor Concentration: Poor Association: Loose Fund of Knowledge: WNL - Mood Mood: Depressed - Affect Affect: Flat (friendly seems a little brighter) - Formal Thought Process Formal Thought Process: Hallucinations (c/o hallucinations voices calling her "slut"), Delusions, Paranoia, Loosening of associations, Circumstantial - Suicidal Ideation Suicidal Ideation: No - Homicidal Ideation Homicidal Ideation: No Goal/Treatment Plan - Goal/Treatment Plan Need for Continued Stay: Remain at risks for inpatient hospitalization, Severe depression anxiety, Discharge may exacerbated symptoms, Severe functional impairment Progress Toward Problem(s) and Goals/Treatment Plan: Milieu/structure/supportive therapy Medical consult appreciated, consultation for discharge plan and social issues Med management Seroquel 200 mg twice a day was started for psychosis and mood stabilization Prozac 30 mg daily for depression and anxiety xanax 0.25mg po bid and hs for anxiety Orthopedic consultation Family involvement Follow up on labs Will monitor closely Pt was educated about risk/benefits and alternatives of medications, coping strategies (safety plan, suicide prevention), relapse prevention, importance of follow up with psychiatrist and therapist, stay away from drugs/alcohol/smoking Estimated Date of D/C: 12/13/17
--- NOTE | 2017-12-12 02:26 | PN ---
DATE: 12/11/2017 SUBJECTIVE: The patient was seen and examined at the bedside on 12/11/2017. She is in the room, looking comfortable. No nausea, vomiting or diarrhea. No hematuria. No hematochezia. No swelling of the legs. No chest pain. No palpitation. No headache. No dizziness. PHYSICAL EXAMINATION: VITAL SIGNS: Temperature 98.6, pulse 102, blood pressure 103/70 and respiratory rate 20. HEENT: Head; normocephalic, atraumatic. Eyes PERRLA. Extraocular muscles intact. Conjunctivae clear. Nose patent. NECK: Supple. No carotid bruit. No JVD or thyromegaly. CHEST: Bilaterally symmetrical. HEART: S1 and S2 positive. LUNGS: Clear to auscultation. ABDOMEN: Soft. Bowel sounds positive. No organomegaly. EXTREMITIES: No edema. No cyanosis. NEUROLOGICAL: The patient is awake and alert. Moving all 4 extremities. No focal deficits. MEDICATIONS: Ativan, iron, Geodon, Prozac, Seroquel, and Xanax. LABORATORY DATA: We do not have recent labs today, but I reviewed old labs. ASSESSMENT AND PLAN: Ms. Ioaan Bucio 67 years old lady with anemia, iron deficiency, B12 deficiency, history of degenerative joint disease, chronic pain syndrome. As per the patient, she is feeling better, getting treatment in the Psychiatry department. History of depression, schizoaffective disorder; psychiatrist decreased the Seroquel. Gastrointestinal and deep venous thrombosis prophylaxis. Repeat labs. We will follow up. Sherin Morton MD MTDD
[2017-12-12] MEDS: Iron Complex Polysacch 150mg Cap PO SCH (09:13)
--- NOTE | 2017-12-12 15:15 | PCM.PYCHPN ---
Psychiatric Progress Note - Psychiatric Progress Note Patient seen today, length of contact: 30min Patient Chief Complaint: "I still has crazy thoughts and voices..." Problems Identified/Issues Discussed: Suicide/ homicide prevention, past psychiatric h/o, current psychiatric symptoms, medical problems, risk/benefits and alternatives of medications, medications compliance, coping strategies, substance abuse h/o, relapse prevention, importance of follow up with psychiatrist and therapist, discharge plan. Medical Problems: chronic knee pain, complaint today, will increase ibuprofen 400mg po bid obesity Diagnostic Results: 12/06/17 07:40 12/06/17 07:40 Lab Results 12/06/17 07:40: TSH 3rd Generation 0.97 12/06/17 07:40: Sodium 139, Potassium 4.3, Chloride 107, Carbon Dioxide 27, Anion Gap 9 L, BUN 23 H, Creatinine 0.8, Est GFR ( Amer) > 60, Est GFR (Non-Af Amer) > 60, Random Glucose 92, Calcium 8.5 12/06/17 07:40: WBC 5.5 D, RBC 3.79, Hgb 10.0 L, Hct 32.1 L, MCV 84.7, MCH 26.4, MCHC 31.2, RDW 15.2 H, Plt Count 289, MPV 10.3 12/05/17 07:40: Hemoglobin A1c 5.9 12/05/17 07:40: Iron 85, TIBC 461, % Saturation 18 L 12/05/17 07:40: Vitamin B12 < 159 L, Folate 11.6 12/05/17 07:40: RPR Nonreactive 12/05/17 07:40: Free T4 1.08, TSH 3rd Generation 1.69 12/05/17 07:40: Fasting Glucose 90, Triglycerides 92, Cholesterol 167, LDL Cholesterol Direct 90, HDL Cholesterol 58 12/04/17 14:35: Alcohol, Quantitative < 10 12/04/17 14:35: Salicylates < 1 L, Acetaminophen < 10.0 L 12/04/17 14:35: Sodium 139, Potassium 5.0, Chloride 104, Carbon Dioxide 26, Anion Gap 14, BUN 22 H, Creatinine 0.8, Est GFR ( Amer) > 60, Est GFR (Non-Af Amer) > 60, Random Glucose 105, Calcium 8.6, Magnesium 2.0, Total Bilirubin 0.7, AST 24, ALT 29, Alkaline Phosphatase 90, Total Protein 7.3, Albumin 4.1, Globulin 3.2, Albumin/Globulin Ratio 1.3 12/04/17 14:35: WBC 8.2, RBC 4.15, Hgb 11.2 L, Hct 34.8 L, MCV 83.9, MCH 27.0, MCHC 32.2, RDW 14.9 H, Plt Count 319, MPV 10.8, Gran % 68.7 H, Lymph % (Auto) 22.7, [place] % (Auto) 7.4 H, Eos % (Auto) 1.1 L, Baso % (Auto) 0.1, Gran # 5.64, Lymph # (Auto) 1.9, [place] # (Auto) 0.6, Eos # (Auto) 0.1, Baso # (Auto) 0.01 12/04/17 13:55: Urine Opiates Screen Negative, Urine Methadone Screen Negative, Ur Barbiturates Screen Negative, Ur Phencyclidine Scrn Negative, Ur Amphetamines Screen Negative, U Benzodiazepines Scrn Negative, U Oth Cocaine Metabols Negative, U Cannabinoids Screen Negative 12/04/17 13:55: Urine Color Yellow, Urine Appearance Clear, Urine pH 6.0, Ur Specific [address] 1.025, Urine Protein Negative, Urine Glucose (UA) Negative, Urine Ketones Negative, Urine Blood Negative, Urine Nitrate Negative, Urine Bili anthony Negative, Urine Urobilinogen 0.2, Ur Leukocyte Esterase Moderate H, Urine RBC 0 - 2, Urine WBC 10 - 15, Ur Epithelial Cells 1 - 3, Urine Bacteria Small Temp Pulse Resp BP Pulse Ox 97.4 F L 66 20 101/60 97 12/10/17 07:25 12/10/17 07:25 12/10/17 07:25 12/10/17 07:25 12/04/17 17:20 DSM 5 Symptoms Update: shortly patient is 67yo female with pmhx of psychosis, most likely schizoaffective disorder, at least 3 previous psychiatric admissions 2016, 2017, multiple medical issues including chronic left knee pain, patient was brought in by EMS for evaluation of psychotic symptoms, patient presented to be disorganized, responding to internal stimuli, psychotic, depressed, possible suicidal ideation, obviously patient requires further evaluation and stabilization in acute psychiatric inpatient unit. pt was seen next to the nursing station, pt presented to be less anxious, pt put some make up today, pt reported that she still has "crazy thoughts, I hear some voices, do not do this, do not do that", pt reported with meds voices are less intense, but still bothering. patient presented to be psychotic at times internally preoccupied, slept little better. pt tolerates meds well, no side effects observed or reported, AIMS 0, no EPS. as per staff there is no agitation, no aggression, patient pleasant and cor porative. Impression: schizoaffective disorder. Medication Change: Yes (Seroquel increased 12/11/17) Medical Record Reviewed: Yes Mental Status Examination - Cognitive Function Orientation: Person, Place, Situation Memory: Impaired Attention: Poor (some improvement) Concentration: Poor (some improvement) Association: Loose (some improvement) Fund of Knowledge: WNL - Mood Mood: Depressed - Affect Affect: Flat (friendly seems a little brighter) - Formal Thought Process Formal Thought Process: Hallucinations ("do not do this do not do that..."), Delusions, Paranoia, Loosening of associations, Circumstantial - Suicidal Ideation Suicidal Ideation: No - Homicidal Ideation Homicidal Ideation: No Goal/Treatment Plan - Goal/Treatment Plan Need for Continued Stay: Remain at risks for inpatient hospitalization, Severe depression anxiety, Discharge may exacerbated symptoms, Severe functional impa irment Progress Toward Problem(s) and Goals/Treatment Plan: Milieu/structure/supportive therapy Medical consult appreciated, consultation for discharge plan and social issues Med management Seroquel 200 mg twice a day for psychosis and mood stabilization Prozac 30 mg daily for depression and anxiety xanax 0.25mg po bid and hs for anxiety Orthopedic consultation Family involvement Follow up on labs Will monitor closely Pt was educated about risk/benefits and alternatives of medications, coping strategies (safety plan, suicide prevention), relapse prevention, importance of follow up with psychiatrist and therapist, stay away from drugs/alcohol/smoking Estimated Date of D/C: 12/17/17
[2017-12-12] MEDS ORDERED: TraMADol/Apap 37.5/325 mg Tab PO PRN (23:16)
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
[2017-12-13] MEDS: Iron Complex Polysacch 150mg Cap PO SCH (08:14)
[2017-12-13] MEDS ORDERED: Oxycodone/Acetaminophen 5/325 mg Tab PO ONE (10:33)
--- NOTE | 2017-12-13 14:24 | PCM.PYCHPN ---
Psychiatric Progress Note - Psychiatric Progress Note Patient seen today, length of contact: 30min Patient Chief Complaint: "voices now transformed to the spirits." Problems Identified/Issues Discussed: Suicide/ homicide prevention, past psychiatric h/o, current psychiatric symptoms, medical problems, risk/benefits and alternatives of medications, medications compliance, coping strategies, substance abuse h/o, relapse prevention, importance of follow up with psychiatrist and therapist, discharge plan. Medical Problems: chronic knee pain, complaint today, will increase ibuprofen 400mg po bid obesity Diagnostic Results: 12/06/17 07:40 12/06/17 07:40 Lab Results 12/06/17 07:40: TSH 3rd Generation 0.97 12/06/17 07:40: Sodium 139, Potassium 4.3, Chloride 107, Carbon Dioxide 27, Anion Gap 9 L, BUN 23 H, Creatinine 0.8, Est GFR ( Amer) > 60, Est GFR (Non-Af Amer) > 60, Random Glucose 92, Calcium 8.5 12/06/17 07:40: WBC 5.5 D, RBC 3.79, Hgb 10.0 L, Hct 32.1 L, MCV 84.7, MCH 26.4, MCHC 31.2, RDW 15.2 H, Plt Count 289, MPV 10.3 12/05/17 07:40: Hemoglobin A1c 5.9 12/05/17 07:40: Iron 85, TIBC 461, % Saturation 18 L 12/05/17 07:40: Vitamin B12 < 159 L, Folate 11.6 12/05/17 07:40: RPR Nonreactive 12/05/17 07:40: Free T4 1.08, TSH 3rd Generation 1.69 12/05/17 07:40: Fasting Glucose 90, Triglycerides 92, Cholesterol 167, LDL Cholesterol Direct 90, HDL Cholesterol 58 12/04/17 14:35: Alcohol, Quantitative < 10 12/04/17 14:35: Salicylates < 1 L, Acetaminophen < 10.0 L 12/04/17 14:35: Sodium 139, Potassium 5.0, Chloride 104, Carbon Dioxide 26, Anion Gap 14, BUN 22 H, Creatinine 0.8, Est GFR ( Amer) > 60, Est GFR (Non-Af Amer) > 60, Random Glucose 105, Calcium 8.6, Magnesium 2.0, Total Bilirubin 0.7, AST 24, ALT 29, Alkaline Phosphatase 90, Total Protein 7.3, Al bumin 4.1, Globulin 3.2, Albumin/Globulin Ratio 1.3 12/04/17 14:35: WBC 8.2, RBC 4.15, Hgb 11.2 L, Hct 34.8 L, MCV 83.9, MCH 27.0, MCHC 32.2, RDW 14.9 H, Plt Count 319, MPV 10.8, Gran % 68.7 H, Lymph % (Auto) 22.7, [place] % (Auto) 7.4 H, Eos % (Auto) 1.1 L, Baso % (Auto) 0.1, Gran # 5.64, Lymph # (Auto) 1.9, [place] # (Auto) 0.6, Eos # (Auto) 0.1, Baso # (Auto) 0.01 12/04/17 13:55: Urine Opiates Screen Negative, Urine Methadone Screen Negative, Ur Barbiturates Screen Negative, Ur Phencyclidine Scrn Negative, Ur Amphetamines Screen Negative, U Benzodiazepines Scrn Negative, U Oth Cocaine Metabols Ne gative, U Cannabinoids Screen Negative 12/04/17 13:55: Urine Color Yellow, Urine Appearance Clear, Urine pH 6.0, Ur Specific [place] 1.025, Urine Protein Negative, Urine Glucose (UA) Negative, Urine Ketones Negative, Urine Blood Negative, Urine Nitrate Negative, Urine Bilirubin Negative, Urine Urobilinogen 0.2, Ur Leukocyte Esterase Moderate H, Urine RBC 0 - 2, Urine WBC 10 - 15, Ur Epithelial Cells 1 - 3, Urine Bacteria Small Temp Pulse Resp BP Pulse Ox 97.4 F L 66 20 101/60 97 12/10/17 07:25 12/10/17 07:25 12/10/17 07:25 12/10/17 07:25 12/04/17 17:20 DSM 5 Symptoms Update: shortly patient is 67yo female with pmhx of psychosis, most likely schizoaffective disorder, at least 3 previous psychiatric admissions 2016, 2017, multiple medical issues including chronic left knee pain, patient was brought in by EMS for evaluation of psychotic symptoms, patient presented to be disorganized, responding to internal stimuli, psychotic, depressed, possible suicidal ideation, obviously patient requires further evaluation and stabilization in acute psychiatric inpatient unit. pt was seen the treatment team meeting, patient said that medications "working well", patient said that her thoughts are transformed "to Spirits are asking how are you doing slot?", Patient reported that she sleeps little bit better, patient still hear voices/her thoughts "not that intense".pt reported she drank the cleaning solution about a week prior to this hospitalization "because I wanted to clean those voices and thoughts", very concrete statement. patient was happy to hear that her cats are in the animal residential and will be given back to her after the discharge. "thank you very much, everybody are so helpful here". pt tolerates meds well, no side effects observed or reported, AIMS 0, no EPS. as per staff there is no agitation, no aggression, patient pleasant and corporative. Impression: schizoaffective disorder. Medication Change: No ( ) Medical Record Reviewed: Yes Mental Status Examination - Cognitive Function Orientation: Person, Place, Situation Memory: Impaired Attention: Poor (some improvement) Concentration: Poor (some improvement) Association: Loose (some improvement) Fund of Knowledge: WNL - Mood Mood: Depressed - Affect Affect: Flat (friendly seems a little brighter) - Formal Thought Process Formal Thought Process: Hallucinations ("do not do this do not do that..."), Delusions, Paranoia, Loosening of associations, Circumstantial - Suicidal Ideation Suicidal Ideation: No - Homicidal Ideation Homicidal Ideation: No Goal/Treatment Plan - Goal/Treatment Plan Need for Continued Stay: Remain at risks for inpatient hospitalization, Severe depression anxiety, Discharge may exacerbated symptoms, Severe functional impairment Progress Toward Problem(s) and Goals/Treatment Plan: Milieu/structure/supportive therapy Medical consult appreciated, consultation for discharge plan and social issues Med management Seroquel 200 mg twice a day for psychosis and mood stabilization Prozac 30 mg daily for depression and anxiety xanax 0.25mg po bid and hs for anxiety Orthopedic consultation Family involvement Follow up on labs Will monitor closely Pt was educated about risk/benefits and alternatives of medications, coping strategies (safety plan, suicide prevention), relapse prevention, importance of follow up with psychiatrist and therapist, stay away from drugs/alcohol/smoking Estimated Date of D/C: 12/17/17
--- NOTE | 2017-12-14 00:19 | PN ---
DATE: 12/13/2017 SUBJECTIVE: The patient is a 67-year-old female. The patient was seen and examined at the bedside on 12/13/2017, looking comfortable. No nausea, vomiting, diarrhea. No hematuria, hematochezia. No swelling of the legs. No chest pain, no palpitation. No headache, no dizziness. No fever, no chills. PHYSICAL EXAMINATION: VITAL SIGNS: Temperature 97.6, pulse 111, blood pressure 119/64, respiratory rate 20. HEENT: Head normocephalic, atraumatic. Eyes PERRLA. Extraocular muscles intact. Conjunctivae clear. Nose patent. Mucous membrane moist. NECK: Supple. No carotid bruit. No JVD or thyromegaly. CHEST: Bilaterally symmetrical. HEART: S1 and S2 positive. LUNGS: Clear to auscultation. ABDOMEN: Soft. Bowel sounds present. No organomegaly. EXTREMITIES: No edema. No cyanosis. NEUROLOGICAL: The patient is awake and alert. Moving all 4 extremities. No focal deficits. MEDICATIONS: Ativan, iron, Geodon, Prozac, Seroquel, Tylenol, and Xanax. LABORATORY DATA: We do not have recent lab today, but I reviewed old labs. ASSESSMENT AND PLAN: Ms. Ioana Bucio is a 67-year-old lady with anemia, iron deficiency, urinary tract infection, got antibiotics, RPR negative. Seen by psychiatrist, Dr. Leona Yung. The patient has chronic knee pain. Orthopedic is on the case, got intraarticular injection, still asking about pain medications. I started tramadol, but as per patient, it is not helping. Gave dose of Percocet. Discontinue tramadol. Out of bed, physical therapy. Patient has schizoaffective disorder. Has the followup psych admissions. Gastrointestinal, deep vein thrombosis prophylaxes. Repeat labs. Sherin Morton MD
[2017-12-14] MEDS: Iron Complex Polysacch 150mg Cap PO SCH (08:23)
--- NOTE | 2017-12-14 09:53 | PCM.PYCHPN ---
Psychiatric Progress Note - Psychiatric Progress Note Patient seen today, length of contact: 30min Problems Identified/Issues Discussed: I reviewed recent notes and met with patient at bedside. She remains friendly and oriented to month, year and location. Patient continues to report that "ever ything is okay so far" and indicates that she is definitely feeling improved since admission. She is sleeping better and hallucinations are decreasing (denies any this morning). She still has periods of anxiety. Responses remain superficial and relevant to questioning. She seems preoccupied but not actively responding to internal stimuli at my visit. She also denies any paranoid thoughts. Patient has been compliant with medications and denies any new side effects, pain or discomfort. Staff note that she has been calm and pleasant on the unit. She is visible and very social with other patients. There were no behavioral issues over the weekend thus far Diagnostic Results: Schizoaffective disorder Medication Change: No ( ) Medical Record Reviewed: Yes Mental Status Examination - Cognitive Function Orientation: Person, Place, Situation Memory: Impaired Attention: Poor (some improvement) Concentration: Poor (some improvement) Association: Loose (some improvement) Fund of Knowledge: WNL - Mood Mood: Depressed, Anxious - Affect Affect: Flat (friendly seems a little brighter, more reactive) - Formal Thought Process Formal Thought Process: Hallucinations (better), Delusions, Paranoia, Loosening of associations, Circumstantial - Suicidal Ideation Suicidal Ideation: No - Homicidal Ideation Homicidal Ideation: No Goal/Treatment Plan - Goal/Treatment Plan Need for Continued Stay: Remain at risks for inpatient hospitalization, Severe depression anxiety, Discharge may exacerbated symptoms, Severe functional impairment Progress Toward Problem(s) and Goals/Treatment Plan: * c/w current tx and plan * No new weekend lab results noted thus far * Vitals reviewed and noted below: Selected Entries 12/13/17 12/13/17 07:11 16:00 Temperature 97.6 F Pulse Rate 69 111 H Respiratory 20 Rate Blood Pressure 90/50 L 119/64 Estimated Date of D/C: 12/17/17
[2017-12-14] MEDS ORDERED: Oxycodone/Acetaminophen 5/325 mg Tab PO SCH (16:15)
--- NOTE | 2017-12-14 23:52 | PN ---
DATE: 12/14/2017 SUBJECTIVE: The patient is 67-year-old female. The patient was seen and examined at the bedside, looking comfortable. No fever, no chills. No headache, no dizziness. No chest pain, no palpitation. No feeling pain in the legs. Yesterday, she received one dose of Percocet and as per the patient that helps, Orthopedics is on the case. No hematuria, no hematochezia. No shortness of breath. PHYSICAL EXAMINATION: VITAL SIGNS: Temperature 97.6, pulse 89, respiratory rate 20, blood pressure 90/50. HEENT: Head normocephalic, atraumatic. Eyes: PERRLA. Extraocular muscles intact. Conjunctivae clear. Nose patent. Mucous membrane moist. NECK: Supple. No carotid bruit. No JVD or thyromegaly. CHEST: Bilaterally symmetrical. HEART: S1, S2 positive. LUNGS: Clear to auscultation. ABDOMEN: Soft, bowel sounds present. No organomegaly. EXTREMITIES: No edema, no cyanosis. NEUROLOGIC: The patient is awake, alert. Moving all 4 extremities. No focal deficits, obeying simple orders. MEDICATIONS: Ativan, Geodon, Percocet, Prozac, Seroquel, Toradol, Xanax. LABORATORY DATA: White blood cell is 5.5, hemoglobin 10, hematocrit 32.1, platelets 289. ASSESSMENT AND PLAN: Ms. Ioana Bucio is a 67-year-old lady with anemia iron deficiency, vitamin B12 deficiency, history of urinary tract infection, completed antibiotics, degenerative joint disease, seen by Dr. Car, Orthopedic, gave a dose of Percocet as per the patient, tramadol and morphine is not working, history of schizo-affective disorder, feeling fatigued and tired, obesity. Gastrointestinal and deep venous thrombosis prophylaxes. Continue present treatment. Appreciate Dr. Leona Yung's input. We will follow up. Sherin Morton MD
[2017-12-15] MEDS ORDERED: MethylPREDNISolone Depo 80 mg/ml (5 ml) Inj INJ ONE (08:22)
[2017-12-15] MEDS: Iron Complex Polysacch 150mg Cap PO SCH (09:11)
--- NOTE | 2017-12-15 09:50 | PCM.PYCHPN ---
Psychiatric Progress Note - Psychiatric Progress Note Patient seen today, length of contact: 30min Problems Identified/Issues Discussed: I reviewed recent notes and met with patient at bedside. She remains groomed, friendly and oriented to month, year and location. Patient continues to report t hat "everything is okay so far" and indicates that she is definitely feeling improved since admission. She is sleeping much better and hallucinations are decreasing. Admits to having thoughts that a "demon is after me" and voices that state "well, good bye, see you sometime". These are less intense and not distressing. She also knows they aren't real. She still has periods of anxiety. Her affect is bright, more related and reactive than prior weekends. Her responses remain relevant to questioning. She seems preoccupied but not actively responding to internal stimuli at my visit. She also denies any paranoid thoughts. Patient has been compliant with medications and denies any new side effects, pain or discomfort. Staff note that she has been calm and pleasant on the unit. She is visible and very social with other patients. There were no behavioral issues over the weekend thus far Diagnostic Results: Schizoaffective disorder Medication Change: No ( ) Medical Record Reviewed: Yes Mental Status Examination - Cognitive Function Orientation: Person, Place, Situation Memory: Impaired Attention: Poor (some improvement) Concentration: Poor (some improvement) Association: Loose (some improvement) Fund of Knowledge: WNL - Mood Mood: Depressed, Anxious - Affect Affect: Flat (friendly seems a little brighter, more reactive) - Formal Thought Process Formal Thought Process: Hallucinations (better), Delusions, Paranoia, Loosening of associations, Circumstantial - Suicidal Ideation Suicidal Ideation: No - Homicidal Ideation Homicidal Ideation: No Goal/Treatment Plan - Goal/Treatment Plan Need for Continued Stay: Remain at risks for inpatient hospitalization, Severe depression anxiety, Discharge may exacerbated symptoms, Severe functional impairment Progress Toward Problem(s) and Goals/Treatment Plan: * c/w current tx and plan * Appreciate f/u by Dr. Morton on 12/14/17~c/w current treatment * No new weekend lab results noted thus far * Vitals reviewed and noted below: Selected Entries 12/14/17 12/14/17 07:33 15:50 Temperature 97.6 F Pulse Rate 75 80 Respiratory 20 Rate Blood Pressure 118/84 109/64 Estimated Date of D/C: 12/17/17
--- NOTE | 2017-12-15 14:01 | CON ---
DATE: 12/15/2017 ORTHOPEDIC CONSULT AND PROCEDURE REPORT HISTORY OF PRESENT ILLNESS: The patient was seen for right knee pain. She was seen before and not getting better with p.o. medicines. She has medial joint line pain, unrestricted range of motion, no significant effusion, tender medial joint line. The plain x-rays show decreased medial joint space, so we are going to get standing x-rays. I will order and I gave her Depo-Medrol and Marcaine injection after prepping the knee and injecting the right knee through the lateral infrapatellar portal with Depo-Medrol and bupivacaine. We will see how she does. I could see her as an outpatient in the office if she requires that. Consider Euflexxa injection, which is Hyalgan, to help the mild arthritis she has at the medial joint line. We will get pending x-rays to verify the medial joint line osteoarthritis where we may be able to see better the arthritic involvement after she gets an x-ray with standing on, such as weightbearing x-rays. FINAL DIAGNOSIS: Mild osteoarthritis, medial joint line, right knee. Injected with Depo-Medrol and Marcaine for some relief. To follow her in the office if needed. Alfonso Car DO
--- NOTE | 2017-12-15 14:28 | RAD ---
Date of service: 12/15/2017 PROCEDURE: Knees bilateral standing AP HISTORY: Pain COMPARISON: 12/05/2017 TECHNIQUE: AP standing FINDINGS: No change from the recent study. Mild joint space narrowing in the medial compartment of the right knee and the lateral compartment of the left knee. Previous internal fixation left knee proximal tibia IMPRESSION: As above
[2017-12-16] MEDS: Iron Complex Polysacch 150mg Cap PO SCH (09:37)
--- NOTE | 2017-12-16 10:17 | PN ---
DATE: 12/15/2017 SUBJECTIVE: The patient is a 67-year-old female. The patient was seen and examined at the bedside on 12/15/2017, just came back for x-rays of the knee. No fever, no chills. No headache, no dizziness. No chest pain, no palpitation. No hematuria, no hematochezia. PHYSICAL EXAMINATION: VITAL SIGNS: Temperature 97.6, pulse 80, respiratory rate 18, blood pressure 118/84. HEENT: Head normocephalic, atraumatic. Eyes: PERRLA. Extraocular muscles intact. Conjunctivae clear. Nose patent. Mucous membrane moist. NECK: Supple. No carotid bruits. No JVD or thyromegaly. CHEST: Bilaterally symmetrical. HEART: S1, S2 positive. LUNGS: Clear to auscultation. ABDOMEN: Soft, bowel sounds present. No organomegaly. EXTREMITIES: No edema, no cyanosis. NEUROLOGIC: The patient is awake, alert. Follows simple commands. MEDICATIONS: Ativan, Geodon, Prozac, Seroquel, acetaminophen and Xanax. LABORATORY DATA: No change from the recent study. Mild joint space narrowing in the medial compartment of the right , treatment given by Dr. Car. The patient improved. He has schizoaffective disorder, past medical history . Medicines reviewed by me. Labs reviewed by me. ASSESSMENT AND PLAN: Ms. Ioana Bucio is a 67-year-old lady has continuous knee pain, seen by Dr. Car . Gastric and deep venous thrombosis prophylaxes. Repeat labs. The patient was seen by Dr. Car. X-rays done. We will follow up. Sherin Morton MD [email or web address]
--- NOTE | 2017-12-16 16:21 | PCM.PYCHPN ---
Psychiatric Progress Note - Psychiatric Progress Note Patient seen today, length of contact: 30min Patient Chief Complaint: "voices now transformed to the spirits, devil is after me" Problems Identified/Issues Discussed: Suicide/ homicide prevention, past psychiatric h/o, current psychiatric symptoms, medical problems, risk/benefits and alternatives of medications, medications compliance, coping strategies, substance abuse h/o, relapse prevention, importance of follow up with psychiatrist and therapist, discharge plan. Medical Problems: chronic knee pain, complaint today, will increase ibuprofen 400mg po bid obesity Diagnostic Results: 12/06/17 07:40 12/06/17 07:40 Lab Results 12/06/17 07:40: TSH 3rd Generation 0.97 12/06/17 07:40: Sodium 139, Potassium 4.3, Chloride 107, Carbon Dioxide 27, Anion Gap 9 L, BUN 23 H, Creatinine 0.8, Est GFR ( Amer) > 60, Est GFR (Non-Af Amer) > 60, Random Glucose 92, Calcium 8.5 12/06/17 07:40: WBC 5.5 D, RBC 3.79, Hgb 10.0 L, Hct 32.1 L, MCV 84.7, MCH 26.4, MCHC 31.2, RDW 15.2 H, Plt Count 289, MPV 10.3 12/05/17 07:40: Hemoglobin A1c 5.9 12/05/17 07:40: Iron 85, TIBC 461, % Saturation 18 L 12/05/17 07:40: Vitamin B12 < 159 L, Folate 11.6 12/05/17 07:40: RPR Nonreactive 12/05/17 07:40: Free T4 1.08, TSH 3rd Generation 1.69 12/05/17 07:40: Fasting Glucose 90, Triglycerides 92, Cholesterol 167, LDL Cholesterol Direct 90, HDL Cholesterol 58 12/04/17 14:35: Alcohol, Quantitative < 10 12/04/17 14:35: Salicylates < 1 L, Acetaminophen < 10.0 L 12/04/17 14:35: Sodium 139, Potassium 5.0, Chloride 104, Carbon Dioxide 26, Anion Gap 14, BUN 22 H, Creatinine 0.8, Est GFR ( Amer) > 60, Est GFR (Non-Af Amer) > 60, Random Glucose 105, Calcium 8.6, Magnesium 2.0, Total Bilirubin 0.7, AST 24, ALT 29, Alkaline Phosphatase 90, Total Protein 7.3, Albumin 4.1, Globulin 3.2, Albumin/Globulin Ratio 1.3 12/04/17 14:35: WBC 8.2, RBC 4.15, Hgb 11.2 L, Hct 34.8 L, MCV 83.9, MCH 27.0, MCHC 32.2, RDW 14.9 H, Plt Count 319, MPV 10.8, Gran % 68.7 H, Lymph % (Auto) 22.7, [place] % (Auto) 7.4 H, Eos % (Auto) 1.1 L, Baso % (Auto) 0.1, Gran # 5.64, Lymph # (Auto) 1.9, [place] # (Auto) 0.6, Eos # (Auto) 0.1, Baso # (Auto) 0.01 12/04/17 13:55: Urine Opiates Screen Negative, Urine Methadone Screen Negative, Ur Barbiturates Screen Negative, Ur Phencyclidine Scrn Negative, Ur Amphetamines Screen Negative, U Benzodiazepines Scrn Negative, U Oth Cocaine Metabols Negative, U Cannabinoids Screen Negative 12/04/17 13:55: Urine Color Yellow, Urine Appearance Clear, Urine pH 6.0, Ur Specific [place] 1.025, Urine Protein Negative, Urine Glucose (UA) Negative, Urine Ketones Negative, Urine Blood Negative, Urine Nitrate Negative, Urine Bilirubin Negative, Urine Urobilinogen 0.2, Ur Leukocyte Esterase Moderate H, Urine RBC 0 - 2, Urine WBC 10 - 15, Ur Epithelial Cells 1 - 3, Urine Bacteria Small Temp Pulse Resp BP Pulse Ox 97.4 F L 66 20 101/60 97 12/10/17 07:25 12/10/17 07:25 12/10/17 07:25 12/10/17 07:25 12/04/17 17:20 DSM 5 Symptoms Update: shortly patient is 67yo female with pmhx of psychosis, most likely schizoaffective disorder, at least 3 previous psychiatric admissions 2016, 2017, multiple medical issues including chronic left knee pain, patient was brought in by EMS for evaluation of psychotic symptoms, patient presented to be disorganized, responding to internal stimuli, psychotic, depressed, possible suicidal ideation, obviously patient requires further evaluation and stabilization in acute psychiatric inpatient unit. pt reported to have "crazy thoughts, devil is after me, I don't feel good". pt reported she drank the cleaning solution about a week prior to this hospitalization "because I wanted to clean those voices and thoughts", very concrete statement. patient was happy to hear that her cats are in the [facility] and will be given back to her after the discharge. "thank you very much, everybody are so helpful here". pt tolerates meds well, no side effects observed or reported, AIMS 0, no EPS. as per staff there is no agitation, no aggression, patient pleasant and corporative. Impression: schizoaffective disorder. Medication Change: Yes (seroquel increased) Medical Record Reviewed: Yes Mental Status Examination - Cognitive Function Orientation: Person, Place, Situation Memory: Impaired Attention: Poor (some improvement) Concentration: Poor (some improvement) Association: Loose (some improvement) Fund of Knowledge: WNL - Mood Mood: Depressed, Anxious - Affect Affect: Flat (friendly seems a little brighter, more reactive) - Formal Thought Process Formal Thought Process: Hallucinations (better), Delusions, Paranoia, Loosening of associations, Circumstantial - Suicidal Ideation Suicidal Ideation: No - Homicidal Ideation Homicidal Ideation: No Goal/Treatment Plan - Goal/Treatment Plan Need for Continued Stay: Remain at risks for inpatient hospitalization, Severe depression anxiety, Discharge may exacerbated symptoms, Severe functional impairment Progress Toward Problem(s) and Goals/Treatment Plan: Milieu/structure/supportive therapy Medical consult appreciated, Dr.Akhtar GREENBERG consultation for discharge plan and social issues Med management Seroquel 200 mg am and 300mg hs a day for psychosis and mood stabilization Prozac 30 mg daily for depression and anxiety xanax 0.25mg po bid and hs for anxiety Orthopedic consultation Family involvement Follow up on labs Will monitor closely Pt was educated about risk/benefits and alternatives of medications, coping strategies (safety plan, suicide prevention), relapse prevention, importance of follow up with psychiatrist and therapist, stay away from drugs/alcohol/smoking Estimated Date of D/C: 12/17/17
[2017-12-16] MEDS: Oxycodone/Acetaminophen 5/325 mg Tab PO PRN (22:15)
--- NOTE | 2017-12-17 03:39 | PN ---
DATE: 12/16/2017 SUBJECTIVE: The patient was seen and examined at the bedside on 12/16/2017, complaining about back pain, knee pain. As per her, she has herniated disc. Her pain is not getting controlled with tramadol and Tylenol and according to her, voices are now transformed to this period. "Devil is after me." No fever, no chills. No hematuria or hematochezia. No swelling of leg. No chest pain. No palpitation. PHYSICAL EXAMINATION: VITAL SIGNS: Temperature 97.4, pulse 80 , respiratory rate 18, blood pressure 101/68, pulse oximetry 97%. HEENT: Head; normocephalic, atraumatic. Eyes; PERRLA. Extraocular muscles intact. Conjunctivae clear. Nose patent. Mucous membrane moist. NECK: Supple. No carotid bruit. No JVD or thyromegaly. CHEST: Bilaterally symmetrical. HEART: S1 and S2 positive. LUNGS: Clear to auscultation. ABDOMEN: Soft. Bowel sounds present. No organomegaly. EXTREMITIES: No edema. No cyanosis. NEUROLOGIC: The patient is awake and alert, moving all four extremities. No focal deficits. LABORATORY DATA: White blood cells 5.5, hemoglobin 10, hematocrit 32.1, platelets 289,000. Sodium 130, potassium 4.3, BUN 23, creatinine 0.2, glucose 92. ASSESSMENT AND PLAN: Ms. Ioana Bucio is a 67 years old female with anemia, renal insufficiency, chronic back pain, herniated disc, degenerative joint disease, has positive history of psychosis, schizoaffective disorder. She had at least three previous admissions for multiple medical issues including chronic left knee pain, history of urinary tract infection improved. 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 She was having suicidal ideation. Gastrointestinal and deep vein thrombosis prophylaxes will be given. Repeat labs. We will follow up. Sherin Morton MD [facility]
[2017-12-17] MEDS: Iron Complex Polysacch 150mg Cap PO SCH (08:24)
--- NOTE | 2017-12-17 08:30 | PN ---
DATE: 12/17/2017 UPDATED REPORT SUBJECTIVE: The patient is in room 517, bed 2. Her x-rays of her knee showed that she does have decreased joint space of the right knee joint indicating that there is mild osteoarthritis of the right knee and the injection of cortisone did help her pain. I told her in the future, she is a candidate for the Hyalgan when she is seen in the office, but she has to call for an appointment and we will see if she has the right insurance for that injection, otherwise she could take Aleve. Avoid heavy contact with the knees like treadmill or heavy climbing of stairs with weights or packages. So this is a controllable condition with antiinflammatory medicines and to be followed in the office p.r.n. basis. Alfonso Car DO
--- NOTE | 2017-12-17 15:50 | PCM.PYCHPN ---
Psychiatric Progress Note - Psychiatric Progress Note Patient seen today, length of contact: 30min Patient Chief Complaint: "voices now transformed to the spirits, but voices are far away now" Problems Identified/Issues Discussed: Suicide/ homicide prevention, past psychiatric h/o, current psychiatric symptoms, medical problems, risk/benefits and alternatives of medications, medications compliance, coping strategies, substance abuse h/o, relapse prevention, importance of follow up with psychiatrist and therapist, discharge plan. Medical Problems: chronic knee pain, complaint today, will increase ibuprofen 400mg po bid obesity Diagnostic Results: 12/06/17 07:40 12/06/17 07:40 Lab Results 12/06/17 07:40: TSH 3rd Generation 0.97 12/06/17 07:40: Sodium 139, Potassium 4.3, Chloride 107, Carbon Dioxide 27, Anion Gap 9 L, BUN 23 H, Creatinine 0.8, Est GFR ( Amer) > 60, Est GFR (Non-Af Amer) > 60, Random Glucose 92, Calcium 8.5 12/06/17 07:40: WBC 5.5 D, RBC 3.79, Hgb 10.0 L, Hct 32.1 L, MCV 84.7, MCH 26.4, MCHC 31.2, RDW 15.2 H, Plt Count 289, MPV 10.3 12/05/17 07:40: Hemoglobin A1c 5.9 12/05/17 07:40: Iron 85, TIBC 461, % Saturation 18 L 12/05/17 07:40: Vitamin B12 < 159 L, Folate 11.6 12/05/17 07:40: RPR Nonreactive 12/05/17 07:40: Free T4 1.08, TSH 3rd Generation 1.69 12/05/17 07:40: Fasting Glucose 90, Triglycerides 92, Cholesterol 167, LDL Cholesterol Direct 90, HDL Cholesterol 58 12/04/17 14:35: Alcohol, Quantitative < 10 12/04/17 14:35: Salicylates < 1 L, Acetaminophen < 10.0 L 12/04/17 14:35: Sodium 139, Potassium 5.0, Chloride 104, Carbon Dioxide 26, Anion Gap 14, BUN 22 H, Creatinine 0.8, Est GFR ( Amer) > 60, Est GFR (Non-Af Amer) > 60, Random Glucose 105, Calcium 8.6, Magnesium 2.0, Total Bilirubin 0.7, AST 24, ALT 29, Alkaline Phosphatase 90, Total Protein 7.3, Albumin 4.1, Globulin 3.2, Albumin/Globulin Ratio 1.3 12/04/17 14:35: WBC 8.2, RBC 4.15, Hgb 11.2 L, Hct 34.8 L, MCV 83.9, MCH 27.0, MCHC 32.2, RDW 14.9 H, Plt Count 319, MPV 10.8, Gran % 68.7 H, Lymph % (Auto) 22.7, [place] % (Auto) 7.4 H, Eos % (Auto) 1.1 L, Baso % (Auto) 0.1, Gran # 5.64, Lymph # (Auto) 1.9, [place] # (Auto) 0.6, Eos # (Auto) 0.1, Baso # (Auto) 0.01 12/04/17 13:55: Urine Opiates Screen Negative, Urine Methadone Screen Negative, Ur Barbiturates Screen Negative, Ur Phencyclidine Scrn Negative, Ur Amphetamines Screen Negative, U Benzodiazepines Scrn Negative, U Oth Cocaine Metabols Negative, U Cannabinoids Screen Negative 12/04/17 13:55: Urine Color Yellow, Urine Appearance Clear, Urine pH 6.0, Ur Specific [place] 1.025, Urine Protein Negative, Urine Glucose (UA) Negative, Urine Ketones Negative, Urine Blood Negative, Urine Nitrate Negative, Urine Bilirubin Negative, Urine Urobilinogen 0.2, Ur Leukocyte Esterase Moderate H, Urine RBC 0 - 2, Urine WBC 10 - 15, Ur Epithelial Cells 1 - 3, Urine Bacteria Small Temp Pulse Resp BP Pulse Ox 97.4 F L 66 20 101/60 97 12/10/17 07:25 12/10/17 07:25 12/10/17 07:25 12/10/17 07:25 12/04/17 17:20 DSM 5 Symptoms Update: shortly patient is 67yo female with pmhx of psychosis, most likely schizoaffective disorder, at least 3 previous psychiatric admissions 2016, 2017, multiple medical issues including chronic left knee pain, patient was brought in by EMS for evaluation of psychotic symptoms, patient presented to be disorganized, responding to internal stimuli, psychotic, depressed, possible suicidal ideation, obviously patient requires further evaluation and stabilization in acute psychiatric inpatient unit. 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 pt tolerates meds well, no side effects observed or reported, AIMS 0, no EPS. as per staff there is no agitation, no aggression, patient pleasant and corporative, put some make up on. Discussed with Dr. Car (ortho) today as well as Dr. Morton. Impression: schizoaffective disorder. Medication Change: Yes ( Seroquel was increased on 12/16/2017) Medical Record Reviewed: Yes Mental Status Examination - Cognitive Function Orientation: Person, Place, Situation Memory: Impaired Attention: Poor (some improvement) Concentration: Poor (some improvement) Association: Loose (some improvement) Fund of Knowledge: WNL - Mood Mood: Depressed, Anxious - Affect Affect: Flat (friendly seems a little brighter, more reactive) - Formal Thought Process Formal Thought Process: Hallucinations (better), Delusions, Paranoia, Loosening of associations, Circumstantial - Suicidal Ideation Suicidal Ideation: No - Homicidal Ideation Homicidal Ideation: No Goal/Treatment Plan - Goal/Treatment Plan Need for Continued Stay: Remain at risks for inpatient hospitalization, Severe depression anxiety, Discharge may exacerbated symptoms, Severe functional impairment Progress Toward Problem(s) and Goals/Treatment Plan: Milieu/structure/supportive therapy Medical consult appreciated, consultation for discharge plan and social issues Med management Seroquel 200 mg am and 300mg hs a day for psychosis and mood stabilization Prozac 30 mg daily for depression and anxiety xanax 0.25mg po bid and hs for anxiety Orthopedic consultation Family involvement Follow up on labs Will monitor closely Pt was educated about risk/benefits and alternatives of medications, coping strategies (safety plan, suicide prevention), relapse prevention, importance of follow up with psychiatrist and therapist, stay away from drugs/alcohol/smoking Estimated Date of D/C: 12/20/17
[2017-12-17] MEDS: Oxycodone/Acetaminophen 5/325 mg Tab PO PRN (21:20)
[2017-12-18 07:13] VITALS: RESP 20
[2017-12-18 07:23] LABS: HEMOGLOBIN 10.4 g/dL (12.0-16.0); MEAN CELL VOLUME 84.9 fl (80.0-105.0); MEAN CORPUSCULAR HEMOGLOBIN 26.5 pg (25.0-35.0); MEAN CORPUSCULAR HGB CONC 31.2 g/dl (31.0-37.0); MEAN PLATELET VOLUME 10.5 fl (7.0-11.0); RBC 3.92 10^6/uL (3.5-6.1); RED CELL DISTRIBUTION WIDTH 15.8 % (11.5-14.5); WHITE BLOOD COUNT 8.2 10^3/uL (4.5-11.0)
[2017-12-18 07:33] LABS: IRON 76 ug/dL (45-180)
[2017-12-18 07:36] LABS: BLOOD UREA NITROGEN 34 mg/dL (7-21); CALCIUM 8.7 mg/dL (8.4-10.5); GFR NON-AFRICAN AMERICAN 55
[2017-12-18 07:42] LABS: % IRON SATURATION 15 % (20-55); TOTAL IRON BINDING CAPACITY 504 ug/dL (265-497)
[2017-12-18] MEDS: Iron Complex Polysacch 150mg Cap PO SCH (08:01)
--- NOTE | 2017-12-18 08:27 | PN ---
DATE: 12/17/2017 SUBJECTIVE: The patient was seen and examined on the bedside on 12/17/2017. This progress note is for 12/17/2017. The patient is looking comfortable, sitting in the dining area. No fever. No chills. No headache. No dizziness. No chest pain. No palpitation. No hematuria or hematochezia. PHYSICAL EXAMINATION: VITAL SIGNS: Temperature 97.9, pulse 88, blood pressure 199/79. HEENT: Head normocephalic, atraumatic. Eyes PERRLA. Extraocular muscles intact. Conjunctivae clear. Nose patent. Mucous membrane moist. NECK: Supple. No carotid bruit. No JVD or thyromegaly. CHEST: Bilaterally symmetrical. HEART: S1 and S2 positive. LUNGS: Clear to auscultation. ABDOMEN: Soft. Bowel sounds positive. No organomegaly. EXTREMITIES: No edema. No cyanosis. NEUROLOGICAL: The patient is awake and alert. Moving all 4 extremities. No focal deficits. MEDICATIONS: Ativan, iron, Geodon, Percocet, Seroquel, Tylenol, Xanax. LABORATORY DATA: White blood cells 5.5, hemoglobin 10.1, hematocrit 32.1, platelets 289. We do not have recent labs today, but I reviewed old labs. ASSESSMENT AND PLAN: Ms. Ioana Bucio, 67-year-old lady with anemia; history of urinary tract infection, got Bactrim; iron deficiency; B12 deficiency; got vitamin B12 injections. Seen by Dr. Car, orthopedic. X-ray of the knees showed that she has decreased joint space of the right knee joint indicating that there is a mild osteoarthritis of the right knee and the injection of cortisone was given by Dr. Car. Maybe the patient is a good candidate of Hyalgan and when she is seen in the office. see the patient as outpatient. The patient was having back pain also. Getting Percocet. Seen by Dr. Leona Yung, psychiatrist. History of psychosis, schizoaffective disorder, multiple psychiatric admission. Gastrointestinal, deep venous thrombosis prophylaxis. Repeat labs. We will follow up. Sherin Morton MD [facility] # [id number] TERR[facility]
[2017-12-18] MEDS: Oxycodone/Acetaminophen 5/325 mg Tab PO PRN (10:31)
--- NOTE | 2017-12-18 17:08 | PCM.PYCHPN ---
Psychiatric Progress Note - Psychiatric Progress Note Patient seen today, length of contact: 30min Patient Chief Complaint: "spirits are bothering me..." Problems Identified/Issues Discussed: Suicide/ homicide prevention, past psychiatric h/o, current psychiatric symptoms, medical problems, risk/benefits and alternatives of medications, medications compliance, coping strategies, substance abuse h/o, relapse prevention, importance of follow up with psychiatrist and therapist, discharge plan. Medical Problems: chronic knee pain, complaint today, will increase ibuprofen 400mg po bid obesity Diagnostic Results: 12/06/17 07:40 12/06/17 07:40 Lab Results 12/06/17 07:40: TSH 3rd Generation 0.97 12/06/17 07:40: Sodium 139, Potassium 4.3, Chloride 107, Carbon Dioxide 27, A nion Gap 9 L, BUN 23 H, Creatinine 0.8, Est GFR ( Amer) > 60, Est GFR (Non-Af Amer) > 60, Random Glucose 92, Calcium 8.5 12/06/17 07:40: WBC 5.5 D, RBC 3.79, Hgb 10.0 L, Hct 32.1 L, MCV 84.7, MCH 26.4, MCHC 31.2, RDW 15.2 H, Plt Count 289, MPV 10.3 12/05/17 07:40: Hemoglobin A1c 5.9 12/05/17 07:40: Iron 85, TIBC 461, % Saturation 18 L 12/05/17 07:40: Vitamin B12 < 159 L, Folate 11.6 12/05/17 07:40: RPR Nonreactive 12/05/17 07:40: Free T4 1.08, TSH 3rd Generation 1.69 12/05/17 07:40: Fasting Glucose 90, Triglycerides 92, Cholesterol 167, LDL Cholesterol Direct 90, HDL Cholesterol 58 12/04/17 14:35: Alcohol, Quantitative < 10 12/04/17 14:35: Salicylates < 1 L, Acetaminophen < 10.0 L 12/04/17 14:35: Sodium 139, Potassium 5.0, Chloride 104, Carbon Dioxide 26, Anion Gap 14, BUN 22 H, Creatinine 0.8, Est GFR ( Amer) > 60, Est GFR (Non-Af Amer) > 60, Random Glucose 105, Calcium 8.6, Magnesium 2.0, Total Bilirubin 0.7, AST 24, ALT 29, Alkaline Phosphatase 90, Total Protein 7.3, Albumin 4.1, Globulin 3.2, Albumin/Globulin Ratio 1.3 12/04/17 14:35: WBC 8.2, RBC 4.15, Hgb 11.2 L, Hct 34.8 L, MCV 83.9, MCH 27.0, MCHC 32.2, RDW 14.9 H, Plt Count 319, MPV 10.8, Gran % 68.7 H, Lymph % (Auto) 22.7, [place] % (Auto) 7.4 H, Eos % (Auto) 1.1 L, Baso % (Auto) 0.1, Gran # 5.64, Lymph # (Auto) 1.9, [place] # (Auto) 0.6, Eos # (Auto) 0.1, Baso # (Auto) 0.01 12/04/17 13:55: Urine Opiates Screen Negative, Urine Methadone Screen Negative, Ur Barbiturates Screen Negative, Ur Phencyclidine Scrn Negative, Ur Amphetamines Screen Negative, U Benzodiazepines Scrn Negative, U Oth Cocaine Metabols Negative, U Cannabinoids Screen Negative 12/04/17 13:55: Urine Color Yellow, Urine Appearance Clear, Urine pH 6.0, Ur Specific [place] 1.025, Urine Protein Negative, Urine Glucose (UA) Negative, Urine Ketones Negative, Urine Blood Negative, Urine Nitrate Negative, Urine Bilirubin Negative, Urine Urobilinogen 0.2, Ur Leukocyte Esterase Moderate H, Urine RBC 0 - 2, Urine WBC 10 - 15, Ur Epithelial Cells 1 - 3, Urine Bacteria Small Temp Pulse Resp BP Pulse Ox 97.4 F L 66 20 101/60 97 12/10/17 07:25 12/10/17 07:25 12/10/17 07:25 12/10/17 07:25 12/04/17 17:20 DSM 5 Symptoms Update: shortly patient is 67yo female with pmhx of psychosis, most likely schizoaffective disorder, at least 3 previous psychiatric admissions 2016, 2017, multiple medical issues including chronic left knee pain, patient was brought in by EMS for evaluation of psychotic symptoms, patient presented to be disorganized, responding to internal stimuli, psychotic, depressed, possible suicidal ideation, obviously patient requires further evaluation and stabilization in acute psychiatric inpatient unit. 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 pt tolerates meds well, no side effects observed or reported, AIMS 0, no EPS. as per staff there is no agitation, no aggression, patient pleasant and corporative, put some make up on. Discussed with Dr. Car (ortho) today as well as Dr. Morton. Impression: schizoaffective disorder. Medication Change: Yes ( Seroquel was increased on 12/18/2017) Medical Record Reviewed: Yes Mental Status Examination - Cognitive Function Orientation: Person, Place, Situation Memory: Impaired Attention: Poor (some improvement) Concentration: Poor (some improvement) Association: Loose (some improvement) Fund of Knowledge: WNL - Mood Mood: Depressed, Anxious - Affect Affect: Flat (friendly seems a little brighter, more reactive) - Formal Thought Process Formal Thought Process: Hallucinations (better), Delusions, Paranoia, Loosening of associations, Circumstantial - Suicidal Ideation Suicidal Ideation: No - Homicidal Ideation Homicidal Ideation: No Goal/Treatment Plan - Goal/Treatment Plan Need for Continued Stay: Remain at risks for inpatient hospitalization, Severe depression anxiety, Discharge may exacerbated symptoms, Severe functional impairment Progress Toward Problem(s) and Goals/Treatment Plan: Milieu/structure/supportive therapy Medical consult appreciated, consultation for discharge plan and social issues Med management Seroquel 300 mg am and 300mg hs a day for psychosis and mood stabilization Prozac 30 mg daily for depression and anxiety xanax 0.25mg po bid and 0.5mghs for anxiety Orthopedic consultation Family involvement Follow up on labs Will monitor closely Pt was educated about risk/benefits and alternatives of medications, coping strategies (safety plan, suicide prevention), relapse prevention, importance of follow up with psychiatrist and therapist, stay away from drugs/alcohol/smoking Estimated Date of D/C: 12/20/17
--- NOTE | 2017-12-19 04:20 | PN ---
DATE: 12/18/2017 SUBJECTIVE: The patient was seen and examined at the bedside 12/18/2017, looking comfortable. No nausea, vomiting, diarrhea. No hematuria or hematochezia. No swelling of the legs. No chest pain. No palpitations. No dizziness. Complaining of back pain and knee pain. PHYSICAL EXAMINATION VITAL SIGNS: Temperature 97.6, pulse 86, blood pressure 119/80, respiratory rate 20. HEENT: Head is normocephalic, atraumatic. Eyes PERRLA. Extraocular muscles are intact. Conjunctivae clear. Nose patent. Mucous membranes moist. NECK: Supple. No carotid bruits. No JVD, thyromegaly. CHEST: Bilaterally symmetrical. HEART: S1, S2 positive. LUNGS: Clear to auscultation. ABDOMEN: Soft. Bowel sounds present. No organomegaly. EXTREMITIES: No edema. No cyanosis. NEUROLOGIC: The patient is awake, alert, follows simple commands. LABORATORY DATA: White blood cell 8.2, hemoglobin 10.7, hematocrit 33.3, platelets 353,000. Sodium 140, potassium 5.1, BUN 34, creatinine 1, B12 of 204. MEDICATIONS: Ativan, iron, Geodon, Percocet, Prozac, Seroquel, Tylenol, Xanax. ASSESSMENT AND PLAN: Ms. Ioana Bucio is a 67-year-old lady with anemia; hyperkalemia; B12 deficiency, got B12 injections; back pain and leg pain, getting Percocet; obesity. Gastrointestinal and deep venous thrombosis prophylaxis. Psychiatrist is on the case. Repeat labs. We will follow. Sherin Morton MD
[2017-12-19] MEDS: Iron Complex Polysacch 150mg Cap PO SCH (09:45)
--- NOTE | 2017-12-19 10:07 | PCM.PYCHPN ---
Psychiatric Progress Note - Psychiatric Progress Note Patient seen today, length of contact: 30min Problems Identified/Issues Discussed: I reviewed recent notes and met with patient in dayroom. Patient recognizes me from interviews during prior weekends on the unit. She remains groomed, friendly and oriented to month, year and location. Patient definitely seems more focused and engaged than our early interviews. She reports that "everything is okay so far" and still reports improvement in anxiety, sleep and hallucinations. She continues to have auditory hallucinations of hearing indistinguishable chatter. This is much less distressing and she walks around the unit to distract herself. Patient knows the voices aren't real and continues to deny paranoid thoughts. er responses remain relevant to questioning. She seems preoccupied but not actively responding to internal stimuli at my visit. She also denies any paranoid thoughts. Patient has been compliant with medications and denies any new side effects, pain or discomfort. Staff note that she is generally calm, pleasant and p redictable on the unit. Patient has been participating in groups and can be very social with other patients. There were no behavioral issues overnight. Insight and judgement are improving. Diagnostic Results: Schizoaffective disorder Medication Change: No ( ) Medical Record Reviewed: Yes Mental Status Examination - Cognitive Function Orientation: Person, Place, Situation Memory: Impaired Attention: WNL (some improvement) Concentration: Poor (some improvement) Association: Loose (some improvement) Fund of Knowledge: WNL - Mood Mood: Depressed, Anxious - Affect Affect: Flat (friendly seems a little brighter, more reactive) - Speech Speech: Appropriate - Formal Thought Process Formal Thought Process: Hallucinations (better), Delusions (none elicited), Paranoia (appear resolved), Loosening of associations (more focused ), Circumstantial - Suicidal Ideation Suicidal Ideation: No - Homicidal Ideation Homicidal Ideation: No Goal/Treatment Plan - Goal/Treatment Plan Need for Continued Stay: Remain at risks for inpatient hospitalization, Severe depression anxiety, Discharge may exacerbated symptoms, Severe functional impairment Progress Toward Problem(s) and Goals/Treatment Plan: * c/w current tx and plan * Vitals reviewed and noted below: Selected Entries 12/18/17 12/18/17 07:12 16:00 Temperature 97.6 F Pulse Rate 69 86 Respiratory 20 Rate Blood Pressure 106/61 119/80 * Seroquel 300 mg am and 300mg hs a day for psychosis and mood stabilization * Prozac 30 mg daily for depression and anxiety * xanax 0.25mg po bid and 0.5mghs for anxiety Estimated Date of D/C: 12/20/17
[2017-12-19] MEDS: Oxycodone/Acetaminophen 5/325 mg Tab PO PRN (13:23)
--- NOTE | 2017-12-20 03:22 | PN ---
DATE: 12/20/2017 SUBJECTIVE: The patient is 67-year-old female. The patient seen and examined at the bedside, looking comfortable. No fever. No chills. No hematuria, hematochezia. No swelling of the legs. No chest pain. No palpitations. No headache. No dizziness. No fever. No chills. PHYSICAL EXAMINATION VITAL SIGNS: Temperature 98.2, pulse 84, blood pressure 120/80 , respiratory rate 20. HEENT: Head is normocephalic, atraumatic. Eyes PERRLA. Extraocular muscles are intact. Conjunctivae clear. Nose patent. NECK: Supple. No carotid bruits. No JVD or thyromegaly. CHEST: Bilateral symmetrical. HEART: S1, S2 positive. LUNGS: Clear to auscultation. ABDOMEN: Soft. Bowel sounds present. No organomegaly. EXTREMITIES: No edema. No cyanosis. NEUROLOGIC: The patient is awake, alert. Moving all four extremities without focal deficits. MEDICATIONS: Ativan, Plavix, Geodon, Seroquel, Tylenol, vitamins, Xanax. LABORATORY DATA: noted ASSESSMENT AND PLAN: Ms. Ioana Bucio s a 67-year-old lady with anemia, history of hyperkalemia, iron deficiency, B12 deficiency, history of urinary tract infection, took Bactrim, B12 deficiency, still getting BUN, IM B12. Seen by Dr. Blane Gray. History of back pain, knee pain, degenerative joint disease, schizoaffective disorder, depression, anxiety, flat affect. Hallucinations and delusions are better. History of hypertension. Gastrointestinal and deep venous thrombosis prophylaxis, repeat labs, will follow up. Sherin Morton MD [facility]
[2017-12-20 07:16] VITALS: BP 102/74; PULSE 74; TEMP 97.7
[2017-12-20] MEDS: Iron Complex Polysacch 150mg Cap PO SCH (08:21)
--- NOTE | 2017-12-20 10:49 | PCM.PYCHDC ---
Mental Status Examination - Mental Status Examination Orientation: Person, Place, Situation Memory: Intact Mood: Anxious Affect: Broad Speech: Appropriate Attention: WNL Concentration: WNL Association: WNL Fund of Knowledge: WNL Formal Thought Process: Hallucinations (Intermittent, chronic, nondistressful, much improved, denies CAH) Description of patient's judgement and insight: Improved and good I/J Psychotic Thoughts and Behaviors: Patient denies perceptual disturbance including hallucinations or paranoia. Delusions were not elicited. Suicidal Ideation: No Current Homicidal Ideation?: No Discharge Summary - Discharge Note Reason for Hospitalization: Patient is 67yo female with pmhx of psychosis, most likely schizoaffective disorder, at least 3 previous psychiatric admissions 2016, 2017, multiple medical issues including chronic left knee pain, patient was brought in by EMS for evaluation of psychotic symptoms, patient presented to be disorganized, responding to internal stimuli, psychotic, depressed, possible suicidal ideation, obviously patient requires further evaluation and stabilization in acute psychiatric inpatient unit. Psychiatric History (includes Medical, Family, Personal Hx): see HPI Laboratory Data: Laboratory Tests 12/04/17 12/04/17 12/04/17 13:55 13:55 14:35 WBC 8.2 RBC 4.15 Hgb 11.2 L Hct 34.8 L MCV 83.9 MCH 27.0 MCHC 32.2 RDW 14.9 H Plt Count 319 MPV 10.8 Gran % 68.7 H Lymph % (Auto) 22.7 [place] % (Auto) 7.4 H Eos % (Auto) 1.1 L Baso % (Auto) 0.1 Gran # 5.64 Lymph # (Auto) 1.9 [place] # (Auto) 0.6 Eos # (Auto) 0.1 Baso # (Auto) 0.01 Sodium Potassium Chloride Carbon Dioxide Anion Gap BUN Creatinine Est GFR ( Amer) Est GFR (Non-Af Amer) Random Glucose Fasting Glucose Hemoglobin A1c Calcium Magnesium Iron TIBC % Saturation Total Bilirubin AST ALT Alkaline Phosphatase Total Protein Albumin Globulin Albumin/Globulin Ratio Triglycerides Cholesterol LDL Cholesterol Direct HDL Cholesterol Vitamin B12 Folate Free T4 TSH 3rd Generation Urine Color Yellow Urine Appearance Clear Urine pH 6.0 Ur Specific [place] 1.025 Urine Protein Negative Urine Glucose (UA) Negative Urine Ketones Negative Urine Blood Negative Urine Nitrate Negative Urine Bilirubin Negative Urine Urobilinogen 0.2 Ur Leukocyte Esterase Moderate H Urine RBC 0 - 2 Urine WBC 10 - 15 Ur Epithelial Cells 1 - 3 Urine Bacteria Small Salicylates Urine Opiates Screen Negative Urine Methadone Screen Negative Acetaminophen Ur Barbiturates Screen Negative Ur Phencyclidine Scrn Negative Ur Amphetamines Screen Negative U Benzodiazepines Scrn Negative U Oth Cocaine Metabols Negative U Cannabinoids Screen Negative Alcohol, Quantitative RPR 12/04/17 12/04/17 12/04/17 14:35 14:35 14:35 WBC RBC Hgb Hct MCV MCH MCHC RDW Plt Count MPV Gran % Lymph % (Auto) [place] % (Auto) Eos % (Auto) Baso % (Auto) Gran # Lymph # (Auto) [place] # (Auto) Eos # (Auto) Baso # (Auto) Sodium 139 Potassium 5.0 Chloride 104 Carbon Dioxide 26 Anion Gap 14 BUN 22 H Creatinine 0.8 Est GFR ( Amer) > 60 Est GFR (Non-Af Amer) > 60 Random Glucose 105 Fasting Glucose Hemoglobin A1c Calcium 8.6 Magnesium 2.0 Iron TIBC % Saturation Total Bilirubin 0.7 AST 24 ALT 29 Alkaline Phosphatase 90 Total Protein 7.3 Albumin 4.1 Globulin 3.2 Albumin/Globulin Ratio 1.3 Triglycerides Cholesterol LDL Cholesterol Direct HDL Cholesterol Vitamin B12 Folate Free T4 TSH 3rd Generation Urine Color Urine Appearance Urine pH Ur Specific [place] Urine Protein Urine Glucose (UA) Urine Ketones Urine Blood Urine Nitrate Urine Bilirubin Urine Urobilinogen Ur Leukocyte Esterase Urine RBC Urine WBC Ur Epithelial Cells Urine Bacteria Salicylates < 1 L Urine Opiates Screen Urine Methadone Screen Acetaminophen < 10.0 L Ur Barbiturates Screen Ur Phencyclidine Scrn Ur Amphetamines Screen U Benzodiazepines Scrn U Oth Cocaine Metabols U Cannabinoids Screen Alcohol, Quantitative < 10 RPR 12/05/17 12/05/17 12/05/17 07:40 07:40 07:40 WBC RBC Hgb Hct MCV MCH MCHC RDW Plt Count MPV Gran % Lymph % (Auto) [place] % (Auto) Eos % (Auto) Baso % (Auto) Gran # Lymph # (Auto) [place] # (Auto) Eos # (Auto) Baso # (Auto) Sodium Potassium Chloride Carbon Dioxide Anion Gap BUN Creatinine Est GFR ( Amer) Est GFR (Non-Af Amer) Random Glucose Fasting Glucose 90 Hemoglobin A1c Calcium Magnesium Iron TIBC % Saturation Total Bilirubin AST ALT Alkaline Phosphatase Total Protein Albumin Globulin Albumin/Globulin Ratio Triglycerides 92 Cholesterol 167 LDL Cholesterol Direct 90 HDL Cholesterol 58 Vitamin B12 Folate Free T4 1.08 TSH 3rd Generation 1.69 Urine Color Urine Appearance Urine pH Ur Specific [place] Urine Protein Urine Glucose (UA) Urine Ketones Urine Blood Urine Nitrate Urine Bilirubin Urine Urobilinogen Ur Leukocyte Esterase Urine RBC Urine WBC Ur Epithelial Cells Urine Bacteria Salicylates Urine Opiates Screen Urine Methadone Screen Acetaminophen Ur Barbiturates Screen Ur Phencyclidine Scrn Ur Amphetamines Screen U Benzodiazepines Scrn U Oth Cocaine Metabols U Cannabinoids Screen Alcohol, Quantitative RPR Nonreactive 12/05/17 12/05/17 12/05/17 07:40 07:40 07:40 WBC RBC Hgb Hct MCV MCH MCHC RDW Plt Count MPV Gran % Lymph % (Auto) [place] % (Auto) Eos % (Auto) Baso % (Auto) Gran # Lymph # (Auto) [place] # (Auto) Eos # (Auto) Baso # (Auto) Sodium Potassium Chloride Carbon Dioxide Anion Gap BUN Creatinine Est GFR ( Amer) Est GFR (Non-Af Amer) Random Glucose Fasting Glucose Hemoglobin A1c 5.9 Calcium Magnesium Iron 85 TIBC 461 % Saturation 18 L Total Bilirubin AST ALT Alkaline Phosphatase Total Protein Albumin Globulin Albumin/Globulin Ratio Triglycerides Cholesterol LDL Cholesterol Direct HDL Cholesterol Vitamin B12 < 159 L Folate 11.6 Free T4 TSH 3rd Generation Urine Color Urine Appearance Urine pH Ur Specific [place] Urine Protein Urine Glucose (UA) Urine Ketones Urine Blood Urine Nitrate Urine Bilirubin Urine Urobilinogen Ur Leukocyte Esterase Urine RBC Urine WBC Ur Epithelial Cells Urine Bacteria Salicylates Urine Opiates Screen Urine Methadone Screen Acetaminophen Ur Barbiturates Screen Ur Phencyclidine Scrn Ur Amphetamines Screen U Benzodiazepines Scrn U Oth Cocaine Metabols U Cannabinoids Screen Alcohol, Quantitative RPR 12/06/17 12/06/17 12/06/17 07:40 07:40 07:40 WBC 5.5 D RBC 3.79 Hgb 10.0 L Hct 32.1 L MCV 84.7 MCH 26.4 MCHC 31.2 RDW 15.2 H Plt Count 289 MPV 10.3 Gran % Lymph % (Auto) [place] % (Auto) Eos % (Auto) Baso % (Auto) Gran # Lymph # (Auto) [place] # (Auto) Eos # (Auto) Baso # (Auto) Sodium 139 Potassium 4.3 Chloride 107 Carbon Dioxide 27 Anion Gap 9 L BUN 23 H Creatinine 0.8 Est GFR ( Amer) > 60 Est GFR (Non-Af Amer) > 60 Random Glucose 92 Fasting Glucose Hemoglobin A1c Calcium 8.5 Magnesium Iron TIBC % Saturation Total Bilirubin AST ALT Alkaline Phosphatase Total Protein Albumin Globulin Albumin/Globulin Ratio Triglycerides Cholesterol LDL Cholesterol Direct HDL Cholesterol Vitamin B12 Folate Free T4 TSH 3rd Generation 0.97 Urine Color Urine Appearance Urine pH Ur Specific [place] Urine Protein Urine Glucose (UA) Urine Ketones Urine Blood Urine Nitrate Urine Bilirubin Urine Urobilinogen Ur Leukocyte Esterase Urine RBC Urine WBC Ur Epithelial Cells Urine Bacteria Salicylates Urine Opiates Screen Urine Methadone Screen Acetaminophen Ur Barbiturates Screen Ur Phencyclidine Scrn Ur Amphetamines Screen U Benzodiazepines Scrn U Oth Cocaine Metabols U Cannabinoids Screen Alcohol, Quantitative RPR 12/18/17 12/18/17 12/18/17 07:10 07:10 07:10 WBC 8.2 RBC 3.92 Hgb 10.4 L Hct 33.3 L MCV 84.9 MCH 26.5 MCHC 31.2 RDW 15.8 H Plt Count 353 MPV 10.5 Gran % Lymph % (Auto) [place] % (Auto) Eos % (Auto) Baso % (Auto) Gran # Lymph # (Auto) [place] # (Auto) Eos # (Auto) Baso # (Auto) Sodium 140 Potassium 5.1 H Chloride 100 Carbon Dioxide 29 Anion Gap 15 BUN 34 H Creatinine 1.0 Est GFR ( Amer) > 60 Est GFR (Non-Af Amer) 55 Random Glucose 95 Fasting Glucose Hemoglobin A1c Calcium 8.7 Magnesium Iron 76 TIBC 504 H % Saturation 15 L Total Bilirubin AST ALT Alkaline Phosphatase Total Protein Albumin Globulin Albumin/Globulin Ratio Triglycerides Cholesterol LDL Cholesterol Direct HDL Cholesterol Vitamin B12 204 L Folate Free T4 TSH 3rd Generation Urine Color Urine Appearance Urine pH Ur Specific [place] Urine Protein Urine Glucose (UA) Urine Ketones Urine Blood Urine Nitrate Urine Bilirubin Urine Urobilinogen Ur Leukocyte Esterase Urine RBC Urine WBC Ur Epithelial Cells Urine Bacteria Salicylates Urine Opiates Screen Urine Methadone Screen Acetaminophen Ur Barbiturates Screen Ur Phencyclidine Scrn Ur Amphetamines Screen U Benzodiazepines Scrn U Oth Cocaine Metabols U Cannabinoids Screen Alcohol, Quantitative RPR Consultations:: List each consultation separately and include: 1. Reason for request. 2. Findings. 3. Follow-up Consultations: Consulted on by Dr. Morton from 12/05/17-12/20/17. Patient treated with Vitamin B12 shotes, percocet prn and Fe supplements Consulted on by Dr. Car 12/05/17, 12/15/17 and 12/17/17 who recommended f/u outpatient Summary of Hospital Course include:: 1. Description of specific treatment plan utilized for patients during their course of treatmen. 2. Summarize the time- course for resolution of acute symptoms and/or regressed behaviors. 3. Describe issues identified and worked on during hospitalization. 4. Describe medication utilized. 5. Describe medical problems identified and treated. 6. Reassessment of suicide risk Summary of Hospital Course: PER DR. GATICA'S NOTE ON 12/18/17 shortly patient is 67yo female with pmhx of psychosis, most likely schizoaffective disorder, at least 3 previous psychiatric admissions 2015, 2017, multiple medical issues including chronic left knee pain, patient was brought in by EMS for evaluation of psychotic symptoms, patient presented to be disorganized, responding to internal stimuli, psychotic, depressed, possible suicidal ideation, obviously patient requires further evaluation and stabilization in acute psychiatric inpatient unit. pt reported "voices are still there, they are saying that Devil is after me, I want physically clear my thoughts, spirits are bothering me", when was asked more details what she mean, pt said "I want to transform my negative thoughts to positive", but this racebook writer is doubtful, prior to admission pt consumed cleaning solution "because I wanted to clean those voices and thoughts", very concrete statement. pt tolerates meds well, no side effects observed or reported, AIMS 0, no EPS. as per staff there is no agitation, no aggression, patient pleasant and corporative, put some make up on. Discussed with Dr. Car (ortho) today as well as Dr. Morton. PER DR. LEVINE'S NOTE 12/19/17 I reviewed recent notes and met with patient in dayroom. Patient recognizes me from interviews during prior weekends on the unit. She remains groomed, friendly and oriented to month, year and location. Patient definitely seems more focused and engaged than our early interviews. She reports that "everything is okay so far" and still reports improvement in anxiety, sleep and hallucinations. She continues to have auditory hallucinations of hearing indistinguishable chatter. This is much less distressing and she walks around the unit to distract herself. Patient knows the voices aren't real and continues to deny paranoid thoughts. er responses remain relevant to questioning. She seems preoccupied but not actively responding to internal stimuli at my visit. She also denies any paranoid thoughts. Patient has been compliant with medications and denies any new side effects, pain or discomfort. Staff note that she is generally calm, pleasant and predictable on the unit. Patient has been participating in groups and can be very social with other patients. There were no behavioral issues overnight. Insight and judgement are improving. DR. LEVINE'S DISCHARGE NOTE 12/20/17 I interviewed patient at bedside to assess continued stability for discharge. Patient is alert and well-oriented to month, year and circumstances. Eye contact is good. Patient feels improved and denies any suicidal thoughts or thoughts to harm others. Affect is calm and appropriately reactive. Patient denies any current hallucinations and is not responding to internal stimuli. She still describes intermittent hallucinations of "chatter", denies CAH, aware they aren't real. Indicates the AH are much less distressful, less frequent and less intense. Thought process is clear and coherent. Patient feels comfortable with discharge today and denies any new concerns. Denies acute discomfort or pain. Tolerating medications and denies any issues with them. Delusions and paranoia were not elicited on day of discharge. - Final Diagnosis (DSM 5) Condition upon Discharge: STABLE DSM 5: Schizoaffective Disorder Disposition: HOME/ ROUTINE Follow-up Treatment Plan: * PLEASE REFER TO SOCIAL WORK NOTE FOR AFTERCARE RECOMMENDATIONS * Called [facility] [phone] and authorized 15 day supply with 1 RF of the following medications: * Seroquel 300 mg am and 300mg hs a day for psychosis and mood stabilization * Prozac 30 mg daily for depression and anxiety * xanax 0.25mg po bid and 0.5mghs for anxiety - Smoking Cessation Smoking Cessation Medication prescribed: No - Antipsychotic Medications Pt discharged on 2 or more routine antipsychotic medications: No
--- NOTE | 2017-12-22 12:45 | PN ---
DATE: 12/20/2017 Patient is 67-year-old female. SUBJECTIVE: Patient was seen and examined by bedside on 12/20/2017, very happy to go home. No fever, no chills. No nausea, vomiting, diarrhea. No hematuria, hematochezia. No swelling of the legs. No chest pain. No palpitations. No headache. No dizziness. No fever, no chills. PHYSICAL EXAMINATION VITAL SIGNS: Reviewed by me, stable. HEENT: Head is normocephalic, atraumatic. Eyes PERRLA. Extraocular muscles are intact. Conjunctivae clear. Nose patent. Mucous membranes moist. NECK: Supple. No carotid bruits. No JVD or thyromegaly. CHEST: Bilaterally symmetrical. HEART: S1 and S2 positive. LUNGS: Clear to auscultation. ABDOMEN: Soft. Bowel sounds present. No organomegaly. EXTREMITIES: No edema. No cyanosis. NEUROLOGIC: Patient is awake, alert. Moving all 4 extremities. No focal deficits. LABORATORY DATA: White blood cells 8.8, hemoglobin 11.2, hematocrit 34.8, platelets 319,000. Sodium 139, potassium 5.0, BUN 22, creatinine of 0.8, glucose of 105. ASSESSMENT AND PLAN: Mrs. Ioana Bucio, 67-year-old lady came in [facility] emergency room, found to have B12 deficiency, B12 shots and p.o. medication was given, back pain and knee pain, seen by Dr. Car. He gave intra-articular injection and want to see as outpatient, the pain medication was given. History of urinary tract infection, completed a course of the antibiotics, has schizoaffective disorder, at least 3 previous psych admissions, multiple medical issues. Was admitted because of psychotic symptoms. hearing voices during hospital stay, she improved, tolerating medication very well. Medication reviewed by me. No side effects observed. Psychiatrist discharged the patient home. Medications arrangement was done. We will follow up as outpatient. Sherin Morton MD TERRY
== END 2017-12-20 14:15 | disposition home or self-care (01) | DRG 885 ==
LOC: ED 13:15 → ERH 16:01 → PSYC 17:41
PROVIDERS: ADMIT Psychiatry & Neurology Psychiatry; ATTEND Psychiatry & Neurology Psychiatry
PROC: 3E0U33Z Introduction of Anti-inflammatory into Joints, Percutaneous Approach (ICD-10-PCS; principal; 2017-12-15)
PROC: 3E0U3BZ Introduction of Anesthetic Agent into Joints, Percutaneous Approach (ICD-10-PCS; 2017-12-15)
DX: F25.9 Schizoaffective disorder, unspecified (principal); N39.0 Urinary tract infection, site not specified; F32.9 Major depressive disorder, single episode, unspecified; F41.9 Anxiety disorder, unspecified; M17.2 Bilateral post-traumatic osteoarthritis of knee; D50.9 Iron deficiency anemia, unspecified; E53.8 Deficiency of other specified B group vitamins; I10 Essential (primary) hypertension; N28.9 Disorder of kidney and ureter, unspecified; E87.5 Hyperkalemia; G89.4 Chronic pain syndrome; E66.9 Obesity, unspecified; Z68.30 Body mass index [BMI] 30.0-30.9, adult; Z91.14 Patient's other noncompliance with medication regimen